=== PATIENT | female | born 1980 | race Caucasian/White ===

== ENCOUNTER 2017-04-09 13:04 | Day surgery (SDC) | payer BC, SELFPAY ==
[2017-04-09 13:47] VITALS: BP 136/91; BP 136/99; PULSE 74; PULSE 77; RESP 18; RESP 20
[2017-04-09 13:55] VITALS: BP 112/57; PULSE 71; RESP 20; TEMP 36.7; O2SAT 98
[2017-04-09 14:30] VITALS: BP 126/80; PULSE 70; RESP 18; TEMP 36.6; O2SAT 99
--- NOTE | 2017-04-09 14:31 | P.PCN_ITS ---
- Procedure Date: 04/09/17 Time: 14:28 Anesthesiologist:: Beck Patel MD Complications:: None Pre-procedure Diagnosis:: Degenerative disc disease of lumbar spine with lumbar spondylosis and facet arthropathy at L3-L4, L4-L5 and L5-S1 bilaterally. Post-procedure Diagnosis:: Same Indications for Procedure:: This patient is a pleasant 37-year-old white female who we are treating for low back pain and bilateral hip pain. Most of her pain is in the low back over the facet joints of L3-L4, L4-L5 and L5-S1. MRI does show degenerative changes throughout the lumbar spine at L3-L4, L4-L5 and L5-S1 with bulging disc. We will do bilateral facet joint injections/medial branch blocks of L3-L4, L4-5 and L5-S1 today. Procedure Details:: Lumbar medial branch block Informed consent was obtained and the risks and benefits of the procedure was explained to the patient. The back was prepped using ChloraPrep. The skin and subcutaneous tissues were anesthetized using lidocaine. I placed 22-gauge spinal needles into the facet joint/medial branches of L3-L4, L4-L5 and L5-S1 bilaterally. Needle placement was confirmed with dye. After this we injected 3 mL bupivacaine 0.25% and Depo-Medrol 13 mg into each facet joint/medial branch of L3-L4, L5 and L5-S1 bilaterally. We used a total of 80 mg Depo- Medrol for all 3 levels bilaterally. The patient tolerated the procedure well with no complications. Plan and Disposition:: We will follow-up with her in 2 weeks. Will reevaluate symptoms at that time.
== END 2017-04-09 14:31 | disposition home or self-care (01) ==
LOC: SC.PAINP 13:06
PROVIDERS: Family Provider Family Medicine; PCP Family Medicine; Visit Provider Anesthesiology
DX: M51.36 Other intervertebral disc degeneration, lumbar region (principal); M54.06 Panniculitis affecting regions of neck and back, lumbar region; M12.88 Other specific arthropathies, not elsewhere classified, other specified site
CPT/HCPCS: 64493; 64494; 64495; J1030; Q9966

== ENCOUNTER → 2017-05-25 10:49 | Outpatient (POV) | payer BC, SELFPAY ==
[2017-05-25 11:07] VITALS: BP 126/81; PULSE 91; RESP 18; TEMP 36.2; O2SAT 100; BMI 31.2
--- NOTE | 2017-05-25 12:06 | HMH.PAINSOAP ---
[facility] Pain Management SOAP Note Subjective:: She is a pleasant 37-year-old female who presents today to discuss her recent facet joint injections. Patient states she did not receive any relief from these injections. Patient states she did get some relief for several days with her lumbar epidural steroid injection. She felt pain-free for up to 3 days. Patient would like to discuss what options she has at this point. Patient is currently on a muscle relaxer from her primary care physician. She is not currently on a anti-inflammatory. Patient has also tried anti-inflammatory patches in the past with no relief. Patient states her pain to 7 out of 10 today mostly in low back and bilateral hips. Patient states that due to pain she is unable to function as well as she would like to. Has tried and failed physical therapy. Patient states the pain is aching and constant. She said that all movement aggravates it. She states nothing truly alleviates it. ROS General: no recent weight change, no fever, no sleep disturbances Respiratory: no cough, no shortness of air, no recurring pulmonary infections Cardiovascular/Peripheral Vascular: No chest pain, No palpitations, no edema, no shortness of breath. Gastrointestinal: no incontinence, normal bowel movements reported Genitourinary: no incontinence Musculoskeletal: Low back pain bilateral hip pain Psychiatric: normal mood/ affect, Neurological: [denies weakness in extremities], [denies balance issues] Objective:: Physical Exam General: Alert and oriented x3, no acute distress, pleasant and cooperative, [on room air] Lungs: Resps E/U, Symmetrical chest expansion, Musculoskeletal: Flexion and extension of lumbar spine somewhat guarded secondary to pain, deep tendon reflexes normal, strength in upper and lower extremities [5/5], [abnormal gait noted], negative Shania's test bilaterally. Positive straight leg raise test at 30? bilaterally. Neurological: speech clear, financial adviser equal, no gross sensory deficits Assessment:: Degenerative disc disease of the lumbar spine with lumbar radiculopathy, lumbar spondylosis, facet arthropathy Plan:: I discussed with the patient that if she had relief from her lumbar epidural steroid injection it may be beneficial for us to repeat this. I also discussed with her that she should try an anti-inflammatory. We will call in diclofenac 75 mg 1 p.o. twice daily. Patient states she has no allergies. Would like to try a 3 series of the lumbar epidural steroid injection to see if we can get some long-term relief for the patient. I believe that this is probably where her pain is coming from since she did get several pain-free days after her first injection. We will seek approval from her insurance for this. Patient has tried and failed physical therapy. This note was dictated using voice recognition software may contain omissions or errors
--- NOTE | 2017-05-25 12:09 | P.CONS_ITS ---
[facility] Pain Management SOAP Note Subjective:: She is a pleasant 37-year-old female who presents today to discuss her recent facet joint injections. Patient states she did not receive any relief from these injections. Patient states she did get some relief for several days with her lumbar epidural steroid injection. She felt pain-free for up to 3 days. Patient would like to discuss what options she has at this point. Patient is currently on a muscle relaxer from her primary care physician. She is not currently on a anti-inflammatory. Patient has also tried anti-inflammatory patches in the past with no relief. Patient states her pain to 7 out of 10 today mostly in low back and bilateral hips. Patient states that due to pain she is unable to function as well as she would like to. Has tried and failed physical therapy. Patient states the pain is aching and constant. She said that all movement aggravates it. She states nothing truly alleviates it. ROS General: no recent weight change, no fever, no sleep disturbances Respiratory: no cough, no shortness of air, no recurring pulmonary infections Cardiovascular/Peripheral Vascular: No chest pain, No palpitations, no edema, no shortness of breath. Gastrointestinal: no incontinence, normal bowel movements reported Genitourinary: no incontinence Musculoskeletal: Low back pain bilateral hip pain Psychiatric: normal mood/ affect, Neurological: [denies weakness in extremities], [denies balance issues] Objective:: Physical Exam General: Alert and oriented x3, no acute distress, pleasant and cooperative, [ on room air] Lungs: Resps E/U, Symmetrical chest expansion, Musculoskeletal: Flexion and extension of lumbar spine somewhat guarded secondary to pain, deep tendon reflexes normal, strength in upper and lower extremities [5/5], [abnormal gait noted], negative Shania's test bilaterally. Positive straight leg raise test at 30? bilaterally. Neurological: speech clear, social science research assistant equal, no gross sensory deficits Assessment:: Degenerative disc disease of the lumbar spine with lumbar radiculopathy, lumbar spondylosis, facet arthropathy Plan:: I discussed with the patient that if she had relief from her lumbar epidural steroid injection it may be beneficial for us to repeat this. I also discussed with her that she should try an anti-inflammatory. We will call in diclofenac 75 mg 1 p.o. twice daily. Patient states she has no allergies. Would like to try a 3 series of the lumbar epidural steroid injection to see if we can get some long-term relief for the patient. I believe that this is probably where her pain is coming from since she did get several pain-free days after her first injection. We will seek approval from her insurance for this. Patient has tried and failed physical therapy. This note was dictated using voice recognition software may contain omissions or errors
--- NOTE | 2017-05-26 09:33 | PC.PHONENOTE ---
05/25/17-called in Rx for Diclofenac 75mg BID with 2 refills to pt pharmacy per provider order
== END ==
PROVIDERS: Family Provider Family Medicine; PCP Family Medicine; Visit Provider Clinical Nurse Specialist Family Health
DX: M54.16 Radiculopathy, lumbar region (principal)
CPT/HCPCS: 99212

== ENCOUNTER 2017-06-11 15:10 | Day surgery (SDC) | payer BC, SELFPAY ==
[2017-06-11 15:26] VITALS: BP 123/81; PULSE 85; TEMP 36.7; O2SAT 98; BMI 31.4
[2017-06-11 15:46] VITALS: BP 146/96; PULSE 91; RESP 18
[2017-06-11 15:47] VITALS: BP 140/78; PULSE 78; RESP 18
--- NOTE | 2017-06-11 15:51 | P.PCN_ITS ---
- Procedure Date: 06/11/17 Time: 15:50 Anesthesiologist:: Beck Patel MD Complications:: None Pre-procedure Diagnosis:: Degenerative disc disease of lumbar spine with lumbar radiculopathy symptoms and lumbar spondylosis Post-procedure Diagnosis:: Same Indications for Procedure:: This patient is a pleasant 37-year-old white female who we are treating for low back pain with lumbar radiculopathy symptoms. She did not get any benefit from previous facet joint injections. She has pain in her low back radiating to both hips. We will do a lumbar epidural steroid injection at L4-L5 today to see if this will give her some benefit. Procedure Details:: Lumbar epidural steroid injection under fluoroscopy Informed consent was obtained and the risk and benefits of the procedure was explained to the patient. The patient was taken to the procedure room. The patient was placed prone on the procedure table. The patient was prepped and draped in sterile fashion. C-arm fluoroscopy was used to view the lumbar spine. Skin and subcutaneous tissues were anesthetized using lidocaine. I placed an 18-gauge epidural needle and advanced into the L4-L5 interspace using fluoroscopic guidance and [id number] to air. After confirmation of needle placement in the epidural space with dye I injected 2 mL of lidocaine 1.5 % with Depo-Medrol 80 mg. Patient tolerated the procedure well with no complications. Plan and Disposition:: We will follow-up with this patient in 2 weeks. We will reevaluate her symptoms at that time.
[2017-06-11 16:04] VITALS: BP 116/89; PULSE 80; O2SAT 98
== END 2017-06-11 16:05 | disposition home or self-care (01) ==
LOC: SC.PAINP 15:10
PROVIDERS: Family Provider Family Medicine; PCP Family Medicine; Visit Provider Anesthesiology
DX: M51.16 Intervertebral disc disorders with radiculopathy, lumbar region (principal); M47.896 Other spondylosis, lumbar region
CPT/HCPCS: 62323; J1040; Q9966

== ENCOUNTER 2017-06-25 13:02 | Day surgery (SDC) | payer BC, SELFPAY ==
[2017-06-25 13:14] VITALS: BP 139/77; PULSE 89; RESP 18; O2SAT 96; BMI 32.9
--- NOTE | 2017-06-25 13:18 | PC.NURSE ---
PATIENT ALERT/ORIENTED DURING ASSESSMENT. NO DISTRESS NOTED, BREATHING UNLABORED AND CALM. PATIENT DOES NOT EXPRESS ANY ADDITIONAL ISSUES DURING ASSESSMENT.
[2017-06-25 14:11] VITALS: BP 153/100; PULSE 84; RESP 18
--- NOTE | 2017-06-25 14:12 | HMH.PMPROC ---
- Procedure Date: 06/25/17 Time: 02:15 Anesthesiologist:: Beck Patel MD Complications:: None Pre-procedure Diagnosis:: Degenerative disc disease of the lumbar spine with lumbar radiculopathy symptoms and lumbar spondylosis Post-procedure Diagnosis:: Same Indications for Procedure:: Patient is a pleasant 37-year-old white female who presents today for her second lumbar epidural steroid injection. Patient did get relief from her first and is doing well. Patient rates her pain a 6 out of 10 today. Patient states she still having relief from her first injection. Patient's radicular pain is improved. Patient and I discussed her second lumbar epidural steroid injection and she wishes to proceed. Procedure Details:: Informed consent was obtained and the risk and benefits of the procedure was explained to the patient. The patient was taken to the procedure room. The patient was placed prone on the procedure table. The patient was prepped and draped in sterile fashion. C-arm fluoroscopy was used to view the lumbar spine. Skin and subcutaneous tissues were anesthetized using lidocaine. I placed an 18-gauge epidural needle and advanced into the L4-L5 interspace using fluoroscopic guidance and [id number] to air. After confirmation of needle placement in the epidural space with dye I injected 2 mL of lidocaine 1.5% with Depo-Medrol 80 mg. Patient tolerated the procedure well with no complications. Plan and Disposition:: Reassess this patient symptoms in 2 or 3 weeks in the clinic. Patient is instructed to call the office if she needs anything in the meantime.
[2017-06-25 14:13] VITALS: BP 127/87; PULSE 76; RESP 18
--- NOTE | 2017-06-25 14:16 | P.PCN_ITS ---
- Procedure Date: 06/25/17 Time: 02:15 Anesthesiologist:: Beck Patel MD Complications:: None Pre-procedure Diagnosis:: Degenerative disc disease of the lumbar spine with lumbar radiculopathy symptoms and lumbar spondylosis Post-procedure Diagnosis:: Same Indications for Procedure:: Patient is a pleasant 37-year-old white female who presents today for her second lumbar epidural steroid injection. Patient did get relief from her first and is doing well. Patient rates her pain a 6 out of 10 today. Patient states she still having relief from her first injection. Patient's radicular pain is improved. Patient and I discussed her second lumbar epidural steroid injection and she wishes to proceed. Procedure Details:: Informed consent was obtained and the risk and benefits of the procedure was explained to the patient. The patient was taken to the procedure room. The patient was placed prone on the procedure table. The patient was prepped and draped in sterile fashion. C-arm fluoroscopy was used to view the lumbar spine. Skin and subcutaneous tissues were anesthetized using lidocaine. I placed an 18-gauge epidural needle and advanced into the L4-L5 interspace using fluoroscopic guidance and [id number] to air. After confirmation of needle placement in the epidural space with dye I injected 2 mL of lidocaine 1.5 % with Depo-Medrol 80 mg. Patient tolerated the procedure well with no complications. Plan and Disposition:: Reassess this patient symptoms in 2 or 3 weeks in the clinic. Patient is instructed to call the office if she needs anything in the meantime.
[2017-06-25 14:25] VITALS: BP 132/91; PULSE 78; O2SAT 100
== END 2017-06-25 14:30 | disposition home or self-care (01) ==
PROVIDERS: Family Provider Family Medicine; PCP Family Medicine; Visit Provider Anesthesiology
DX: M51.16 Intervertebral disc disorders with radiculopathy, lumbar region (principal); M47.896 Other spondylosis, lumbar region
CPT/HCPCS: 62323; J1040; Q9966

== ENCOUNTER → 2017-07-26 15:02 | Outpatient (CLI) | payer BC, SELFPAY ==
[2017-07-26 16:08] LABS: Free T4 (Free Thyroxine) 1.25 ng/dl (0.76-1.46); Thyroid Stimulating Hormone 1.04 uIU/ml (0.358-3.740)
[2017-07-30 12:35] LABS: Thyroid Peroxidase Antibodies 15 IU/mL (0-34)
[2017-07-30 12:48] LABS: Thyroid Stimulating Immunoglob <0.10 IU/L (0.00-0.55)
== END ==
PROVIDERS: PCP Family Medicine; Visit Provider Otolaryngology
DX: E01.0 Iodine-deficiency related diffuse (endemic) goiter (principal)
CPT/HCPCS: 36415; 83520; 84439; 84443; 86376

== ENCOUNTER → 2017-07-27 08:51 | Outpatient (POV) | payer BC, SELFPAY ==
--- NOTE | 2017-07-27 09:13 | HMH.PAINSOAP ---
[facility] Pain Management SOAP Note Subjective:: She is a pleasant 37-year-old white female who presents today after lumbar epidural steroid injection. Patient has medial branch and lumbar epidural steroid injections with little relief. Patient states that after her latest one she was having increased pain and unable to move as well. Patient has tried diclofenac 75 mg 1 p.o. twice daily and failed this. Patient has tried and failed physical therapy. Patient states she has not tried gabapentin in the past. Patient rates her pain a 7 out of 10 today. Most of it in her low back and bilateral legs. ROS General: no recent weight change, no fever, no sleep disturbances Respiratory: no cough, no shortness of air, no recurring pulmonary infections Cardiovascular/Peripheral Vascular: No chest pain, No palpitations, no edema, no shortness of breath. Gastrointestinal: no incontinence, normal bowel movements reported Genitourinary: no incontinence Musculoskeletal: Back pain, bilateral leg pain Psychiatric: normal mood/ affect Neurological: [denies weakness in extremities], [denies balance issues] Objective:: Physical Exam General: Alert and oriented x3, no acute distress, pleasant and cooperative, [on room air] Lungs: Resps E/U, Symmetrical chest expansion, Eyes: PERRL Musculoskeletal: Flexion and extension of lumbar spine somewhat guarded secondary to pain, deep tendon reflexes normal, strength in upper and lower extremities [5/5], [abnormal gait noted] Neurological: speech clear, drive in teller equal, no gross sensory deficits Assessment:: Degenerative disc disease of the lumbar spine with lumbar radiculopathy Plan:: We will start the patient on gabapentin 300 mg 1 tab p.o. 3 times daily. I discussed with the patient potential side effects. I also discussed titrating slowly by taking 300 mg at nighttime for at least a week. Patient that she understands. I want to this medication and we will follow-up with her in 1 month. if she is not having any relief. We will discuss potentially neuro stimulation. Patient is interested in this. This note was dictated using voice recognition software and may contain errors or omissions
[2017-07-27 09:15] VITALS: BP 133/70; PULSE 88; RESP 20; BMI 31.1
--- NOTE | 2017-07-27 09:18 | P.CONS_ITS ---
[facility] Pain Management SOAP Note Subjective:: She is a pleasant 37-year-old white female who presents today after lumbar epidural steroid injection. Patient has medial branch and lumbar epidural steroid injections with little relief. Patient states that after her latest one she was having increased pain and unable to move as well. Patient has tried diclofenac 75 mg 1 p.o. twice daily and failed this. Patient has tried and failed physical therapy. Patient states she has not tried gabapentin in the past. Patient rates her pain a 7 out of 10 today. Most of it in her low back and bilateral legs. ROS General: no recent weight change, no fever, no sleep disturbances Respiratory: no cough, no shortness of air, no recurring pulmonary infections Cardiovascular/Peripheral Vascular: No chest pain, No palpitations, no edema, no shortness of breath. Gastrointestinal: no incontinence, normal bowel movements reported Genitourinary: no incontinence Musculoskeletal: Back pain, bilateral leg pain Psychiatric: normal mood/ affect Neurological: [denies weakness in extremities], [denies balance issues] Objective:: Physical Exam General: Alert and oriented x3, no acute distress, pleasant and cooperative, [ on room air] Lungs: Resps E/U, Symmetrical chest expansion, Eyes: PERRL Musculoskeletal: Flexion and extension of lumbar spine somewhat guarded secondary to pain, deep tendon reflexes normal, strength in upper and lower extremities [5/5], [abnormal gait noted] Neurological: speech clear, self pay specialist equal, no gross sensory deficits Assessment:: Degenerative disc disease of the lumbar spine with lumbar radiculopathy Plan:: We will start the patient on gabapentin 300 mg 1 tab p.o. 3 times daily. I discussed with the patient potential side effects. I also discussed titrating slowly by taking 300 mg at nighttime for at least a week. Patient that she understands. I want to this medication and we will follow-up with her in 1 month. if she is not having any relief. We will discuss potentially neuro stimulation. Patient is interested in this. This note was dictated using voice recognition software and may contain errors or omissions
--- NOTE | 2017-07-27 14:34 | PC.PHONENOTE ---
called in Rx for Gabapentin 300mg TID to pt's pharmacy per provider order
== END ==
PROVIDERS: Family Provider Family Medicine; PCP Family Medicine; Visit Provider Clinical Nurse Specialist Family Health
DX: M51.16 Intervertebral disc disorders with radiculopathy, lumbar region (principal)
CPT/HCPCS: 99212

== ENCOUNTER → 2017-08-02 15:17 | Outpatient (POV) | payer BC, SELFPAY ==
--- NOTE | 2017-08-02 15:25 | P.CONS_ITS ---
[facility] Pain Management SOAP Note Subjective:: Patient is a pleasant 37-year-old white female who we are treating for low back pain with radiation to both hips. She has had a lumbar epidural steroid injection and medial branch blocks with little to no pain relief. He was also placed on gabapentin. She was unable to take it more than a few days because of significant for side effects including dizziness and palpitations. Most of her pain is in her hips. She seems to have a lot of pain over the SI joints. She is tender over both SI joints. She does have a positive Shania's test bilaterally. I do believe she would benefit from bilateral SI joint injections under fluoroscopy. Objective:: Alert and oriented ?3 in no acute distress. Tenderness over both SI joints. Patient does have an antalgic gait. Motor strength of the lower extremities is 5/5. There is no gross sensory deficit. Assessment:: Sacroiliitis Plan:: We will seek approval and plan on bilateral SI joint injections under fluoroscopy. If this does not help we may pursue neuro stimulation as an option.
[2017-08-02 15:38] VITALS: BP 135/84; PULSE 63; RESP 18; TEMP 36.6; O2SAT 98; BMI 32.1
== END ==
PROVIDERS: Family Provider Family Medicine; PCP Family Medicine; Visit Provider Anesthesiology
DX: M46.1 Sacroiliitis, not elsewhere classified (principal)
CPT/HCPCS: 99212

== ENCOUNTER → 2017-08-06 14:14 | Outpatient (CLI) | payer BC, SELFPAY ==
--- NOTE | 2017-08-06 14:24 | US_ITS ---
US thyroid COMPARISON: None HISTORY: Questionable enlarged thyroid gland seen on previous CT scan TECHNIQUE: Targeted ultrasound the thyroid FINDINGS: The isthmus of the gland is slightly enlarged measuring 0.4 cm. The right lobe measures 1.5 x 1.7 x 4.2 cm. The left lobe measures 1.7 x 2.1 x 4.4 cm. Both lobes show homogeneous echogenicity. However there is a small oval cystic lesion lower pole right lobe measuring 0.8 x 0.5 cm. IMPRESSION: Mild or borderline thyromegaly with probable small benign-appearing cyst lower pole right lobe
== END ==
PROVIDERS: Family Provider Family Medicine; PCP Family Medicine; Visit Provider Otolaryngology
DX: E01.0 Iodine-deficiency related diffuse (endemic) goiter (principal)
CPT/HCPCS: 76536

== ENCOUNTER → 2017-08-23 08:42 | Outpatient (POV) | payer BC, SELFPAY ==
[2017-08-23 09:05] VITALS: BP 127/73; PULSE 78; RESP 18; O2SAT 99; BMI 31.6
--- NOTE | 2017-08-23 09:39 | HMH.PAINSOAP ---
[facility] Pain Management SOAP Note Subjective:: Patient is a pleasant 37-year-old white female who presents today for follow-up after recent insurance denial of her SI joint injections. Patient is still having her SI joint pain. Patient has extreme point tenderness over bilateral SI joints. She does have pain when she twists or bends. Patient rates pain as 7 out of 10 today. Patient's tried and failed heat, ice, physical therapy, anti-inflammatories, medications. Patient is done well with injections in the past. I believe that this would be beneficial. Patient is unable to take gabapentin due to side effects. ROS General: no recent weight change, no fever, no sleep disturbances Respiratory: no cough, no shortness of air, no recurring pulmonary infections Cardiovascular/Peripheral Vascular: No chest pain, No palpitations, no edema, no shortness of breath. Gastrointestinal: no incontinence, normal bowel movements reported Genitourinary: no incontinence Musculoskeletal: Bilateral SI joint pain Psychiatric: normal mood/ affect, Neurological: [denies weakness in extremities], [denies balance issues] Objective:: Physical Exam General: Alert and oriented x3, no acute distress, pleasant and cooperative, [on room air] Lungs: Resps E/U, Symmetrical chest expansion, Eyes: PERRL Musculoskeletal: Flexion and extension of lumbar spine somewhat guarded secondary to pain, deep tendon reflexes normal, strength in upper and lower extremities [5/5], slightly antalgic gait noted, positive Shania's test bilaterally, extreme point tenderness over bilateral SI joint Neurological: speech clear, 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 I believe that this would be beneficial given her symptomology. Patient and I did discuss potentially neuro stimulation however I believe that this is premature prior to trying bilateral SI joint injections. Patient is not on any anticoagulation therapy, patient has tried and failed physical therapy, medications, anti-inflammatories. Patient is done well with patients the past. I will follow-up with this patient after her injections. This note was dictated using voice recognition software and may contain errors or omissions
--- NOTE | 2017-08-23 09:43 | P.CONS_ITS ---
[facility] Pain Management SOAP Note Subjective:: Patient is a pleasant 37-year-old white female who presents today for follow-up after recent insurance denial of her SI joint injections. Patient is still having her SI joint pain. Patient has extreme point tenderness over bilateral SI joints. She does have pain when she twists or bends. Patient rates pain as 7 out of 10 today. Patient's tried and failed heat, ice, physical therapy, anti -inflammatories, medications. Patient is done well with injections in the past. I believe that this would be beneficial. Patient is unable to take gabapentin due to side effects. ROS General: no recent weight change, no fever, no sleep disturbances Respiratory: no cough, no shortness of air, no recurring pulmonary infections Cardiovascular/Peripheral Vascular: No chest pain, No palpitations, no edema, no shortness of breath. Gastrointestinal: no incontinence, normal bowel movements reported Genitourinary: no incontinence Musculoskeletal: Bilateral SI joint pain Psychiatric: normal mood/ affect, Neurological: [denies weakness in extremities], [denies balance issues] Objective:: Physical Exam General: Alert and oriented x3, no acute distress, pleasant and cooperative, [ on room air] Lungs: Resps E/U, Symmetrical chest expansion, Eyes: PERRL Musculoskeletal: Flexion and extension of lumbar spine somewhat guarded secondary to pain, deep tendon reflexes normal, strength in upper and lower extremities [5/5], slightly antalgic gait noted, positive Shania's test bilaterally, extreme point tenderness over bilateral SI joint Neurological: speech clear, disability specialist equal, no gross sensory deficits Assessment:: Sacroiliitis Plan:: We will schedule bilateral SI joint injections for the patient. I believe that this would be beneficial given her symptomology. Patient and I did discuss potentially neuro stimulation however I believe that this is premature prior to trying bilateral SI joint injections. Patient is not on any anticoagulation therapy, patient has tried and failed physical therapy, medications, anti- inflammatories. Patient is done well with patients the past. I will follow-up with this patient after her injections. This note was dictated using voice recognition software and may contain errors or omissions
== END ==
PROVIDERS: Family Provider Family Medicine; PCP Family Medicine; Visit Provider Clinical Nurse Specialist Family Health
DX: M46.1 Sacroiliitis, not elsewhere classified (principal)
CPT/HCPCS: 99212

== ENCOUNTER → 2017-09-28 10:00 | Outpatient (POV) | payer BC, SELFPAY ==
[2017-09-28 10:16] VITALS: BP 128/79; PULSE 74; RESP 20; O2SAT 98; BMI 29.2
--- NOTE | 2017-09-28 10:32 | HMH.PAINSOAP ---
[facility] Pain Management SOAP Note Subjective:: Patient is a pleasant 37-year-old white female who presents today for follow-up after bilateral SI joint injections. Patient states that her pain in her hips has been relieved. She rates that pain a 1 out of 10 today. However her back pain has returned. Patient has tried and failed heat, ice, physical therapy, anti-inflammatories and medications. Patient has had epidural injections and medial branch blocks with some relief however none lasting. Patient is unable to take gabapentin due to side effects. Patient and I discussed possible neuro stimulation. ROS General: no recent weight change, no fever, no sleep disturbances Respiratory: no cough, no shortness of air, no recurring pulmonary infections Cardiovascular/Peripheral Vascular: No chest pain, No palpitations, no edema, no shortness of breath. Gastrointestinal: no incontinence, normal bowel movements reported Genitourinary: no incontinence Musculoskeletal: Back pain Psychiatric: normal mood/ affect Neurological: [denies weakness in extremities], [denies balance issues] Objective:: Physical Exam General: Alert and oriented x3, no acute distress, pleasant and cooperative, [on room air] Lungs: Resps E/U, Symmetrical chest expansion, Eyes: PERRL Musculoskeletal: Flexion and extension of lumbar spine somewhat guarded secondary to pain, deep tendon reflexes normal, strength in upper and lower extremities [5/5], [abnormal gait noted] Neurological: speech clear, loading manager equal, no gross sensory deficits Assessment:: Degenerative disc disease lumbar spine, facet arthropathy, sacroiliitis Plan:: I gave the patient information on the [employer] system and answered her questions. Patient is going to review the information and contact our office if she would like to move forward with a potential trial. If not patient may be open to more injective therapy. This note was dictated using voice recognition software and may contain errors or omissions
--- NOTE | 2017-09-28 10:36 | P.CONS_ITS ---
[facility] Pain Management SOAP Note Subjective:: Patient is a pleasant 37-year-old white female who presents today for follow-up after bilateral SI joint injections. Patient states that her pain in her hips has been relieved. She rates that pain a 1 out of 10 today. However her back pain has returned. Patient has tried and failed heat, ice, physical therapy, anti-inflammatories and medications. Patient has had epidural injections and medial branch blocks with some relief however none lasting. Patient is unable to take gabapentin due to side effects. Patient and I discussed possible neuro stimulation. ROS General: no recent weight change, no fever, no sleep disturbances Respiratory: no cough, no shortness of air, no recurring pulmonary infections Cardiovascular/Peripheral Vascular: No chest pain, No palpitations, no edema, no shortness of breath. Gastrointestinal: no incontinence, normal bowel movements reported Genitourinary: no incontinence Musculoskeletal: Back pain Psychiatric: normal mood/ affect Neurological: [denies weakness in extremities], [denies balance issues] Objective:: Physical Exam General: Alert and oriented x3, no acute distress, pleasant and cooperative, [ on room air] Lungs: Resps E/U, Symmetrical chest expansion, Eyes: PERRL Musculoskeletal: Flexion and extension of lumbar spine somewhat guarded secondary to pain, deep tendon reflexes normal, strength in upper and lower extremities [5/5], [abnormal gait noted] Neurological: speech clear, icu registered nurse equal, no gross sensory deficits Assessment:: Degenerative disc disease lumbar spine, facet arthropathy, sacroiliitis Plan:: I gave the patient information on the [employer] system and answered her questions. Patient is going to review the information and contact our office if she would like to move forward with a potential trial. If not patient may be open to more injective therapy. This note was dictated using voice recognition software and may contain errors or omissions
== END ==
PROVIDERS: Family Provider Family Medicine; PCP Family Medicine; Visit Provider Clinical Nurse Specialist Family Health
DX: M46.1 Sacroiliitis, not elsewhere classified (principal)
CPT/HCPCS: 99212

== ENCOUNTER → 2017-10-05 08:31 | Outpatient (POV) | payer BC, SELFPAY ==
[2017-10-05 08:56] VITALS: BP 149/85; PULSE 74; RESP 18; O2SAT 98; BMI 30.9
--- NOTE | 2017-10-05 14:18 | HMH.PAINSOAP ---
[facility] Pain Management SOAP Note Subjective:: Patient is a pleasant 37-year-old white female who presents today for follow-up. Patient is in the process of getting approved for a neurostimulator. Patient states she has low back pain along with bilateral leg pain. She rates her pain a 5 out of 10 today. Patient did have some questions in regards to the spinal cord stimulator I did answer her questions for her. Patient does have a psychological evaluation scheduled for later on today. Patient's tried and failed heat, ice, physical therapy, anti-inflammatories, medications, injections. She has had epidural injections along with medial branch blocks with some relief however none lasting. Patient is unable to take gabapentin due to side effects. ROS General: no recent weight change, no fever, no sleep disturbances Respiratory: no cough, no shortness of air, no recurring pulmonary infections Cardiovascular/Peripheral Vascular: No chest pain, No palpitations, no edema, no shortness of breath. Gastrointestinal: no incontinence, normal bowel movements reported Genitourinary: no incontinence Musculoskeletal: Back pain, leg pain Psychiatric: normal mood/ affect Neurological: [denies weakness in extremities], [denies balance issues] Objective:: Physical Exam General: Alert and oriented x3, no acute distress, pleasant and cooperative, [on room air] Lungs: Resps E/U, Symmetrical chest expansion, Eyes: PERRL Musculoskeletal: Flexion and extension of lumbar spine somewhat guarded secondary to pain, deep tendon reflexes normal, strength in upper and lower extremities [5/5], [abnormal gait noted] positive straight leg raise test bilaterally at 30? Neurological: speech clear, triple air valve tester equal, no gross sensory deficits Assessment:: Degenerative disc disease of the lumbar spine with facet arthropathy, lumbar radiculopathy, sacroiliitis Plan:: Patient is going to have her psychological evaluation today. We will move forward with a spinal cord stimulator trial to see if she gets benefit from this. Patient states she has burning and numbness in her low back and down her legs. This note was dictated using voice recognition software and may contain errors or omissions
--- NOTE | 2017-10-05 14:21 | P.CONS_ITS ---
[facility] Pain Management SOAP Note Subjective:: Patient is a pleasant 37-year-old white female who presents today for follow- up. Patient is in the process of getting approved for a neurostimulator. Patient states she has low back pain along with bilateral leg pain. She rates her pain a 5 out of 10 today. Patient did have some questions in regards to the spinal cord stimulator I did answer her questions for her. Patient does have a psychological evaluation scheduled for later on today. Patient's tried and failed heat, ice, physical therapy, anti-inflammatories, medications, injections. She has had epidural injections along with medial branch blocks with some relief however none lasting. Patient is unable to take gabapentin due to side effects. ROS General: no recent weight change, no fever, no sleep disturbances Respiratory: no cough, no shortness of air, no recurring pulmonary infections Cardiovascular/Peripheral Vascular: No chest pain, No palpitations, no edema, no shortness of breath. Gastrointestinal: no incontinence, normal bowel movements reported Genitourinary: no incontinence Musculoskeletal: Back pain, leg pain Psychiatric: normal mood/ affect Neurological: [denies weakness in extremities], [denies balance issues] Objective:: Physical Exam General: Alert and oriented x3, no acute distress, pleasant and cooperative, [ on room air] Lungs: Resps E/U, Symmetrical chest expansion, Eyes: PERRL Musculoskeletal: Flexion and extension of lumbar spine somewhat guarded secondary to pain, deep tendon reflexes normal, strength in upper and lower extremities [5/5], [abnormal gait noted] positive straight leg raise test bilaterally at 30? Neurological: speech clear, heel emery buffer equal, no gross sensory deficits Assessment:: Degenerative disc disease of the lumbar spine with facet arthropathy, lumbar radiculopathy, sacroiliitis Plan:: Patient is going to have her psychological evaluation today. We will move forward with a spinal cord stimulator trial to see if she gets benefit from this. Patient states she has burning and numbness in her low back and down her legs. This note was dictated using voice recognition software and may contain errors or omissions
== END ==
PROVIDERS: Family Provider Family Medicine; PCP Family Medicine; Visit Provider Clinical Nurse Specialist Family Health
DX: M54.16 Radiculopathy, lumbar region (principal)
CPT/HCPCS: 99212

== ENCOUNTER → 2017-10-20 11:22 | Outpatient (POV) | payer BC, SELFPAY ==
[2017-10-20 11:37] VITALS: BP 107/81; PULSE 87; RESP 18; O2SAT 98; BMI 31.6
--- NOTE | 2017-10-20 12:22 | HMH.PMCON ---
Assessment and Plan (1) DDD (degenerative disc disease), lumbar Current visit: Yes Status: Chronic Category: Medical Code(s): M51.36 - Other intervertebral disc degeneration, lumbar region Consideration for neurostimulator implant trial with placement of permanent system if indicated HPI - Data of Consult Patient: new to practice Consult date: 10/20/17 Requesting Physician: Junior Ro MD Primary Care Provider: Brian Richard MD Family Provider: Brian Richard MD - Consult Narrative Reason for consult: Consideration for neurostimulator implant trial when of lumbar pain History of present illness: Ms. Stone is a 37 year old female with long history of degenerative disc disease of the lumbar spine with radiculopathy. Failure of improvement with injections, physical therapy, anti-inflammatories etc. She desires evaluation with neuro stimulation CC: Junior Ro MD [facility] History Medical History: Denies:: Cancer, Diabetes Mellitus Type 1, Diabetes Mellitus Type 2, MRSA, Seizures Other Medical History: Reports: Arthritis, Sinus Problems. Denies: Blood Transfusion Reaction Comment: Illnesses-GERD, COPD, chronic back pain Laterality Cases: Right: Arthroscopy Shoulder, Bilateral: Tonsillectomy Other Surgeries: Yes: Tubal Ligation, Other Amputation: No Fractures: No Comment: Operations-tubal ligation, right shoulder surgery, right hand surgery - *Social History Smoking Status: Current every day smoker Tobacco Type: cigarettes # Packs/Day (cigarettes): 1 Alcohol Intake: never Substance Use Type: denies use Occupational Status: unemployed, disabled Housing: house Household Members: spouse - Psychiatric History Expresses thoughts of harming self/others: None Suicide Plan Description: No Plan *Family Hx:: Heart Attack, Hypertension Review of Systems - Review of Systems Review of systems:: pertinent systems reviewed and negative unless documented below - *Musculoskeletal Reports back pain, Reports radiating pain into limb - *Neurologic Reports numbness Meds Home Medications Medication Instructions Recorded Confirmed Type No Known Home Medications 07/26/17 07/26/17 History Allergies Allergy/AdvReac Type Severity Reaction Status Date / Time No Known Allergies Allergy Verified 08/12/17 13:38 Objective Vital signs: Pulse Resp BP Pulse Ox 87 18 107/81 98 10/20/17 11:37 10/20/17 11:37 10/20/17 11:37 10/20/17 11:37 Comments: Pale white female in no distress - *Routine Respiratory Exam Comments: Clear - *Routine Cardiovascular Exam Present: RRR - *Routine Abdominal Exam Present: soft
== END ==
PROVIDERS: Family Provider Family Medicine; PCP Family Medicine; Visit Provider Surgery
DX: M51.36 Other intervertebral disc degeneration, lumbar region (principal)
CPT/HCPCS: 99212

== ENCOUNTER → 2017-12-13 13:47 | Outpatient (CLI) | payer BC, SELFPAY ==
--- NOTE | 2017-12-13 13:49 | CA_ITS ---
PROCEDURE: 2-D M-mode and color Doppler study INDICATIONS FOR THE TEST: Chest pain+ COPD Heart Murmur Tobacco Smoking+ Palpitations+ Fatigue+ Syncope Edema Hypertension+Diabetes Mellitus Rheumatic Fever SOB [place]+Obesity Hyperlipidemia Family History HD+ Additional History PATIENT INFORMATION HEIGHT: 64 WEIGHT: 184 GENDER: Female B/P: 115/57 2-D/M-MODE INTERPRETATION: 2-D MEASUREMENTS OBSERVED VALUES IN CMS Right Ventricular Dimension (RVDd) 1.6 Interventricular Septum (Thickness)(IVsd) 0.7 Left Ventricular Internal Dimensions(LVIDd) 4.9 Left Ventricular Posterior Wall (Thickness)(LVPWd) 0.7 Aortic Root 2.5 Aortic Cusp Separation 2.0 Left Atrial Dimensions (LAD) 3.0 2D 1. Left atrium is normal size, left ventricle is normal size, there is no concentric left ventricular hypertrophy, visually estimated ejection fraction 55% with no obvious regional wall motion abnormality. 2. The right atrium and right ventricle are normal size and contractility. 3. The aortic valve is minimally thickened and fibrosed. 4. The mitral and tricuspid valvular grossly normal. 5. The pulmonic valve is poorly visualized. 6. No significant pericardial effusion noted. DOPPLER INTERROGATION: Doppler interrogation of the aortic, mitral and tricuspid valvular presence of mild mitral and tricuspid regurgitation, tricuspid regurgitation jet velocity is insufficient for calculation of the right ventricular systolic pressure, grade 1 diastolic dysfunction seen with tissue Doppler evidence of raised left atrial pressure. CONCLUSION: 1. Normal left ventricular size, preserved left ventricular systolic function, visually estimated ejection fraction 55% with no regional wall motion abnormality, grade 1 diastolic dysfunction seen with tissue Doppler evidence of raised left atrial pressure. 2. Mild mitral and tricuspid regurgitation 3. No significant pericardial effusion noted.
== END ==
PROVIDERS: Family Provider Family Medicine; PCP Family Medicine; Visit Provider Internal Medicine
DX: Z01.818 Encounter for other preprocedural examination (principal); I10 Essential (primary) hypertension; R00.2 Palpitations; R06.02 Shortness of breath; R07.89 Other chest pain; Z72.0 Tobacco use
CPT/HCPCS: 93017; 93306

== ENCOUNTER → 2017-12-21 10:55 | Outpatient (POV) | payer BC, SELFPAY ==
[2017-12-21 11:03] VITALS: BP 110/65; PULSE 79; RESP 18; TEMP 36.2; O2SAT 96; BMI 31.2
--- NOTE | 2017-12-21 11:50 | HMH.PAINSOAP ---
[facility] Pain Management SOAP Note Subjective:: Patient is a pleasant 37-year-old white female who presents today for follow-up in regards to her neurostimulator placement. Patient is currently doing well rating her pain a 5 out of 10. Patient's been reprogrammed in stating she is doing much better. Patient states that she is Ext percent better. Patient is interested in moving toward the permanent implant. Patient states she is much more functional. Objective:: Physical Exam General: Alert and oriented x3, no acute distress, pleasant and cooperative, [on room air] Lungs: Resps E/U, Symmetrical chest expansion, Eyes: PERRL Musculoskeletal: Flexion and extension of lumbar spine somewhat guarded secondary to pain, deep tendon reflexes normal, strength in upper and lower extremities [5/5], slightly antalgic gait noted Neurological: speech clear, washer machine equal, no gross sensory deficits Assessment:: Sacroiliitis Plan:: We will plan on removing her neurostimulator leads after several more days. Patient's been reprogrammed and doing well at this time. Patient is continuing on her antibiotics. Patient sites are dry and clean no drainage noted. We will plan on a permanent in plant given the efficacy of the trial. Patient states she is much more functional. This note was dictated using voice recognition software and may contain errors or omissions
--- NOTE | 2017-12-21 11:53 | P.CONS_ITS ---
[facility] Pain Management SOAP Note Subjective:: Patient is a pleasant 37-year-old white female who presents today for follow-up in regards to her neurostimulator placement. Patient is currently doing well rating her pain a 5 out of 10. Patient's been reprogrammed in stating she is doing much better. Patient states that she is Ext percent better. Patient is interested in moving toward the permanent implant. Patient states she is much more functional. Objective:: Physical Exam General: Alert and oriented x3, no acute distress, pleasant and cooperative, [on room air] Lungs: Resps E/U, Symmetrical chest expansion, Eyes: PERRL Musculoskeletal: Flexion and extension of lumbar spine somewhat guarded secondar y to pain, deep tendon reflexes normal, strength in upper and lower extremities [5/5], slightly antalgic gait noted Neurological: speech clear, fish skinning machine feeder equal, no gross sensory deficits Assessment:: Sacroiliitis Plan:: We will plan on removing her neurostimulator leads after several more days. Patient's been reprogrammed and doing well at this time. Patient is continuing on her antibiotics. Patient sites are dry and clean no drainage noted. We will plan on a permanent in plant given the efficacy of the trial. Patient states she is much more functional. This note was dictated using voice recognition software and may contain errors or omissions
== END ==
PROVIDERS: Family Provider Family Medicine; PCP Family Medicine; Visit Provider Clinical Nurse Specialist Family Health
DX: M46.1 Sacroiliitis, not elsewhere classified (principal)
CPT/HCPCS: 99212

== ENCOUNTER → 2018-02-16 13:00 | Outpatient (POV) | payer BC, SELFPAY ==
[2018-02-16 13:14] VITALS: BP 105/69; PULSE 61; RESP 18; O2SAT 96; BMI 30.9
--- NOTE | 2018-02-16 13:25 | HMH.PAINSOAP ---
[facility] Pain Management SOAP Note Subjective:: This patient is a pleasant 38-year-old white female who is status post permanent placement spinal cord stimulator for low back pain with lumbar radicular symptoms. She is doing very well with her stimulator. Pain score is down to 4-5 out of 10. She does have increased stimulation down her legs and she needs more in her back. She is scheduled reprogramming today. Incision is healed very nicely. Sutures have been removed today and Steri-Strips placed. Overall she is much more functional with less pain. Objective:: Oriented x3 no acute distress. Patient does have an antalgic gait. Motor strength of the lower extremities is 5/5. There is no gross sensory deficit. Incision is healed very nicely. Assessment:: Degenerative disc disease of lumbar spine with lumbar radiculopathy symptoms with spinal cord stimulator in place Plan:: Very pleased with her progress. We will reprogram her today. We will follow-up with her in 1 month. We will reevaluate her symptoms and further reprogramming if needed.
== END ==
PROVIDERS: PCP Family Medicine; Visit Provider Anesthesiology
DX: M51.16 Intervertebral disc disorders with radiculopathy, lumbar region (principal)
CPT/HCPCS: 99212

== ENCOUNTER → 2018-02-17 12:25 | Outpatient (CLI) | payer BC, SELFPAY ==
--- NOTE | 2018-02-17 12:26 | US_ITS ---
US thyroid HISTORY: Follow-up enlarged thyroid ITS.REASON: enlarged thyroid per CT ORDERING PHYSICIAN: Miguel Qiu MD PATIENT AGE: 38 years Comparison: 08/06/2017 FINDINGS: The right lobe is 4.6 x 1.6 x 2.3 cm. 9 x 6 mm cyst along the upper pole posteriorly unchanged. Ill-defined Isoechoic area posteriorly at 8 x 4 mm. This was not demonstrated previously but may not been seen and now represent an area of heterogeneous echogenicity as opposed to a nodule. Left lobe: 4 x 1.9 x 1.8 cm with unremarkable appearance. The isthmus is unremarkable at 3 mm. IMPRESSION: 1. Mildly enlarged thyroid gland. 2. No change in the 9 mm cyst of the right lobe with possible isoechoic nodule in the lower pole versus heterogeneous echogenicity. Continued follow-up suggested
[2018-02-17 15:33] LABS: Free T4 (Free Thyroxine) 1.32 ng/dl (0.76-1.46); Thyroid Stimulating Hormone 0.65 uIU/ml (0.358-3.740)
== END ==
PROVIDERS: PCP Family Medicine; Visit Provider Otolaryngology
DX: E01.0 Iodine-deficiency related diffuse (endemic) goiter (principal)
CPT/HCPCS: 36415; 76536; 84439; 84443

== ENCOUNTER → 2018-02-17 13:33 | Outpatient (CLI) | payer BC, SELFPAY | PROVIDERS: Visit Provider Otolaryngology | DX: E01.0 Iodine-deficiency related diffuse (endemic) goiter (principal) | CPT/HCPCS: 36415; 84439; 84443 ==

== ENCOUNTER → 2018-03-15 09:39 | Outpatient (POV) | payer BC, SELFPAY ==
--- NOTE | 2018-03-15 10:12 | HMH.PAINSOAP ---
[facility] Pain Management SOAP Note Subjective:: Patient is a pleasant 38-year-old white female who presents today for follow-up after spinal cord stimulator placement. Patient is doing well rating her pain a 5 out of 10 today. Patient states that she does have some tweaking that needs to be done due to the neurostimulator when it is turned high she has numbness in her legs. ROS General: no recent weight change, no fever, no sleep disturbances Respiratory: no cough, no shortness of air, no recurring pulmonary infections Cardiovascular/Peripheral Vascular: No chest pain, No palpitations, no edema, no shortness of breath. Gastrointestinal: no incontinence, normal bowel movements reported Genitourinary: no incontinence Musculoskeletal: Back pain, leg pain Psychiatric: normal mood/ affect Neurological: [denies weakness in extremities], [denies balance issues] Objective:: Physical Exam General: Alert and oriented x3, no acute distress, pleasant and cooperative, [on room air] Lungs: Resps E/U, Symmetrical chest expansion, Eyes: PERRL Musculoskeletal: Flexion and extension of lumbar spine somewhat guarded secondary to pain, deep tendon reflexes normal, strength in upper and lower extremities [5/5], slightly antalgic gait noted Neurological: speech clear, vending machine operator equal, no gross sensory deficits Assessment:: Degenerative disc disease lumbar spine lumbar radiculopathy Plan:: We will see the patient back in 3 months and reassess her symptoms at that time. Patient's been instructed to call the office if she has any issues. Patient will be contacted by the [facility] for [facility] for any tweaking. This note was dictated using voice recognition software and may contain errors or omissions
[2018-03-15 10:29] VITALS: BP 132/76; PULSE 88; RESP 18; O2SAT 98; BMI 31.2
== END ==
PROVIDERS: PCP Family Medicine; Visit Provider Clinical Nurse Specialist Family Health
DX: M51.16 Intervertebral disc disorders with radiculopathy, lumbar region (principal); Z96.89 Presence of other specified functional implants
CPT/HCPCS: 99213

== ENCOUNTER → 2018-05-23 13:47 | Outpatient (POV) | payer BC, SELFPAY ==
[2018-05-23 15:04] VITALS: BP 119/84; PULSE 83; RESP 18; O2SAT 98; BMI 31.2
--- NOTE | 2018-05-24 08:40 | P.CONS_ITS ---
[facility] Pain Management SOAP Note Subjective:: Patient is a pleasant 38-year-old white female who presents today for follow-up. She rates her pain a 6 out of 10 today. She states her stimulator is helping her low back pain however she is having some hip pain. Patient probably needs some reprogramming. Patient has been in touch with the outside sales representative. Patient also wanted to discuss arthritis pain. She is not currently on any anti- inflammatories. ROS General: no recent weight change, no fever, no sleep disturbances Respiratory: no cough, no shortness of air, no recurring pulmonary infections Cardiovascular/Peripheral Vascular: No chest pain, No palpitations, no edema, no shortness of breath. Gastrointestinal: no incontinence, normal bowel movements reported Genitourinary: no incontinence Musculoskeletal: Back pain, leg pain Psychiatric: normal mood/ affect, Neurological: [denies weakness in extremities], [denies balance issues] Objective:: Physical Exam General: Alert and oriented x3, no acute distress, pleasant and cooperative, [on room air] Lungs: Resps E/U, Symmetrical chest expansion, Eyes: PERRL Musculoskeletal: Flexion and extension of lumbar spine somewhat guarded secondary to pain, deep tendon reflexes normal, strength in upper and lower extremities [5/5], slightly antalgic gait noted Neurological: speech clear, animal trainer supervisor equal, no gross sensory deficits Assessment:: Degenerative disc disease lumbar spine with lumbar radiculopathy Plan:: We will call the patient in Celebrex 200 mg 1 p.o. daily I will follow-up with the patient in 2 months and reassess her symptoms at that time. She is been instructed to call the office if she has any issues prior to her next appointment. Dr. Patel has reviewed this note and agrees with this plan of care. This note was dictated using voice recognition software and may contain errors or omissions
== END ==
PROVIDERS: PCP Family Medicine; Visit Provider Clinical Nurse Specialist Family Health
DX: M51.16 Intervertebral disc disorders with radiculopathy, lumbar region (principal)
CPT/HCPCS: 99213

== ENCOUNTER → 2018-06-21 10:11 | Outpatient (POV) | payer BC, MEDICAID, SELFPAY ==
[2018-06-21 10:29] VITALS: BP 132/84; PULSE 67; RESP 18; O2SAT 98; BMI 31.7
--- NOTE | 2018-06-21 16:30 | P.CONS_ITS ---
[facility] Pain Management SOAP Note Subjective:: Patient is a pleasant 38-year-old white female who presents today for follow-up. She rates her pain a 5 out of 10. She states that most of her pain is in her right hip. She is being reprogrammed today by the community service representative. Patient was on Celebrex however she felt like it was not beneficial. ROS General: no recent weight change, no fever, no sleep disturbances Respiratory: no cough, no shortness of air, no recurring pulmonary infections Cardiovascular/Peripheral Vascular: No chest pain, No palpitations, no edema, no shortness of breath. Gastrointestinal: no incontinence, normal bowel movements reported Genitourinary: no incontinence Musculoskeletal: Back pain, leg pain at times, right hip pain Psychiatric: normal mood/ affect Neurological: [denies weakness in extremities], [denies balance issues] Objective:: Physical Exam General: Alert and oriented x3, no acute distress, pleasant and cooperative, [on room air] Lungs: Resps E/U, Symmetrical chest expansion, Eyes: PERRL Musculoskeletal: Flexion and extension of lumbar spine somewhat guarded secondary to pain, deep tendon reflexes normal, strength in upper and lower extremities [5/5], antalgic gait noted Neurological: speech clear, lidar technician equal, no gross sensory deficits Assessment:: Generative disc disease lumbar spine with lumbar radiculopathy Plan:: Patient will be reprogrammed today we will follow-up with her later and see if this is beneficial. If it is not we may need to get some new imaging of her hip and potentially send her to [facility]. Patient's been instructed to call the office if she has any issues prior to her next appointment. Dr. Patel has reviewed this note and agrees with this plan of care. This note was dictated using voice recognition software and may contain errors or omissions
== END ==
PROVIDERS: PCP Family Medicine; Visit Provider Clinical Nurse Specialist Family Health
DX: M51.16 Intervertebral disc disorders with radiculopathy, lumbar region (principal)
CPT/HCPCS: 99213

== ENCOUNTER → 2018-06-28 09:26 | Outpatient (CLI) | payer BC, MEDICAID, SELFPAY ==
[2018-06-28 10:05] LABS: Basophils % 0.7 % (0.1-2.0); Eosinophils # 0.3 K/mm3 (0.0-0.4); Eosinophils % 4.2 % (0.1-12.0); Hematocrit 44.9 % (37.0-47.0); Hemoglobin 15.3 g/dL (12.2-16.2); Lymphocytes # 1.8 K/mm3 (0.7-4.5); Lymphocytes % 27.2 % (10-50); Mean Corpuscular Hemoglobin 32.3 pg (27.0-31.2); Mean Corpuscular Volume 95.2 fl (81-99); Mean Platelet Volume 9.3 fl (7.4-10.4); Monocytes # 0.3 K/mm3 (0.1-1.0); Monocytes % 4.8 % (1.7-9.3); Neutrophils # 4.1 K/mm3 (1.8-7.8); Neutrophils % 63.2 % (37.0-80.0); Platelet Count 168 K/mm3 (142-424); Red Blood Count 4.72 M/mm3 (4.20-5.40); Red Cell Distribution Width 12.9 % (11.5-17.5); White Blood Count 6.5 K/mm3 (4.8-10.8)
[2018-06-28 10:59] LABS: Alanine Aminotransferase 19 U/L (12-78); Albumin Level 3.7 gm/dL (3.4-5.0); Albumin/Globulin Ratio 1.1 (1.1-1.8); Alkaline Phosphatase 57 U/L (46-116); Anion Gap 12.9 mEq/L (5-15); Aspartate Amino Transferase 13 U/L (15-37); Bilirubin,Total 0.4 mg/dL (0.2-1.0); Blood Urea Nitrogen 9 mg/dL (7-18); Calcium 8.8 mg/dL (8.5-10.1); Carbon Dioxide 26 mmol/L (21.0-32.0); Chloride 105 mmol/L (98-107); Chol/HDL Ratio 7.7 (1-3.5); Cholesterol 292 mg/dL (140-200); Creatinine,Serum 0.79 mg/dL (0.55-1.02); Estimated Glomerular Filt Rate 81 ml/min (>60); GFR (African American) 98 ML/MIN (>60); Globulin 3.3 gm/dl (1.3-3.2); Glucose 88 mg/dL (74-106); HDL Cholesterol 38 mg/dL (29-89); LDL Cholesterol 220 mg/dL (0-130); Potassium 3.9 mmoL/L (3.5-5.1); Sodium 140 mmol/L (136-145); Triglycerides 168 mg/dL (30-200); VLDL Cholesterol 34 mg/dL (0-40)
[2018-06-29 08:44] LABS: Vitamin D 25 Hydroxy 13.9 ng/mL (30.0-100.0)
== END ==
PROVIDERS: Visit Provider Nurse Practitioner Obstetrics & Gynecology
DX: Z01.419 Encounter for gynecological examination (general) (routine) without abnormal findings (principal)
CPT/HCPCS: 36415; 80053; 80061; 82652; 85025

== ENCOUNTER → 2018-06-30 12:27 | Outpatient (CLI) | payer BC, MEDICAID, SELFPAY ==
--- NOTE | 2018-06-30 12:29 | CT_ITS ---
CT lumbar spine wo con INDICATION: ITS.REASON: LOW BACK PAIN ORDERING PHYSICIAN: Lachelle Rogers PATIENT AGE: 38 years COMPARISON: 04/23/2016 TECHNIQUE: Axial images obtained with sagittal and coronal reformats. All CT scans at the facility use one or more dose reduction, viz: automated exposure control, ma/kV adjustment per patient size (including targeted exams where dose is matched to indication, i.e. head), or iterative reconstruction technique. FINDINGS: There has been interval insertion of epidural device with one limb entering the spinal canal at T11-T12 and another limb entering the canal at T12-L1 There is normal alignment. L2-L3: Unremarkable. L3-L4: There is concentric bulging disc at L3-L4 along with mild facet and ligamentum flavum hypertrophy not significantly changed. L4-L5: Mild concentric bulging disc. Slightly eccentric toward the left. Not significantly changed. L5-S1: Bulging disc with a broad-based central/left paracentral disc osteophyte complex slightly eccentric toward the left abutting the anteromedial aspect of both S1 nerve roots not significantly changed. No fracture or dislocation. Overall no significant change from 04/23/2016 IMPRESSION: L3-L4: There is concentric bulging disc at L3-L4 along with mild facet and ligamentum flavum hypertrophy not significantly changed. L4-L5: Mild concentric bulging disc. Slightly eccentric toward the left. Not significantly changed. L5-S1: Bulging disc with a broad-based central/left paracentral disc osteophyte complex slightly eccentric toward the left abutting the anteromedial aspect of both S1 nerve roots not significantly changed
== END ==
PROVIDERS: PCP Family Medicine; Visit Provider Clinical Nurse Specialist Family Health
DX: M54.5 Low back pain (principal)
CPT/HCPCS: 72131

== ENCOUNTER → 2018-07-05 10:57 | Outpatient (POV) | payer BC, MEDICAID, SELFPAY ==
[2018-07-05 11:26] VITALS: BP 111/83; PULSE 72; RESP 18; O2SAT 98; BMI 31.9
--- NOTE | 2018-07-05 11:35 | HMH.PAINSOAP ---
[facility] Pain Management SOAP Note Subjective:: Patient is a pleasant 38-year-old white female who presents for follow-up after CT scan. Patient states most of her pain is in her right hip. CT scan shows minimal changes in her low back. Patient has not been seen by Orth O. Patient does have an implanted stimulator to help with pain. She rates her pain a 5 out of 10. ROS General: no recent weight change, no fever, no sleep disturbances Respiratory: no cough, no shortness of air, no recurring pulmonary infections Cardiovascular/Peripheral Vascular: No chest pain, No palpitations, no edema, no shortness of breath. Gastrointestinal: no incontinence, normal bowel movements reported Genitourinary: no incontinence Musculoskeletal: Right hip pain Psychiatric: normal mood/ affect Neurological: [denies weakness in extremities], [denies balance issues] Objective:: Physical Exam General: Alert and oriented x3, no acute distress, pleasant and cooperative, [on room air] Lungs: Resps E/U, Symmetrical chest expansion, Eyes: PERRL Musculoskeletal: Flexion and extension of lumbar spine somewhat guarded secondary to pain, deep tendon reflexes normal, strength in upper and lower extremities [5/5], [abnormal gait noted] Neurological: speech clear, gas appliance adjuster equal, no gross sensory deficits Assessment:: Degenerative disc disease lumbar spine lumbar radiculopathy along with right hip pain Plan:: We will send her to orthopedic consultation in regards to her right hip pain. I will follow-up with her on an as-needed basis. Dr. Patel has reviewed this note and agrees with this plan of care. This note was dictated using voice recognition software and may contain errors or omissions
== END ==
PROVIDERS: PCP Family Medicine; Visit Provider Clinical Nurse Specialist Family Health
DX: M51.16 Intervertebral disc disorders with radiculopathy, lumbar region (principal); M25.551 Pain in right hip
CPT/HCPCS: 99212

== ENCOUNTER → 2018-07-12 15:22 | Outpatient (CLI) | payer BC, MEDICAID, SELFPAY ==
--- NOTE | 2018-07-12 15:24 | MM_ITS ---
MM Dig screening mamm BI w/CAD ORDERING PHYSICIAN : Simeon Live MD PATIENT AGE: 38 years GENDER: Female COMPARISON: Baseline mammogram with no previous for comparison . INDICATION: ITS.Period: Routine Screening Mammogram . No hormones. No new complaints noncontributory family history TECHNIQUE: Standard imaging sequences CC views along with 2 set MLO views were obtained. R2 CAD reviewed. FINDINGS: . Moderate breast density. No suspicious dominant mass nor suspicious calcifications either breast. The minor asymmetry does not appear to be of significance. . Bilateral follow-up in not over one year recommended. RIGHT BREAST: between the 2 MLO views from today we see No persistent suspicious nodule or mass. But follow-up in one year adequate. LEFT BREAST:No areas of significant concern. Likely Minor ductal prominence retroareolar region bilateral =====IMPRESSION: Baseline mammogram. ... No areas of significant concern. Bilateral follow-up in one year would be recommended and encouraged to additionally confirm baseline BI-RADS Category: 2 Benign Finding(s) RECOMMENDED FOLLOW-UP: 1YR 1 YEAR FOLLOW-UP (A letter has been sent to the patient regarding results of the study.)
== END ==
PROVIDERS: PCP Family Medicine; Visit Provider Nurse Practitioner Obstetrics & Gynecology
DX: Z12.31 Encounter for screening mammogram for malignant neoplasm of breast (principal)
CPT/HCPCS: 77067

== ENCOUNTER → 2018-07-27 10:46 | Outpatient (CLI) | payer BC, MEDICAID, SELFPAY ==
--- NOTE | 2018-07-27 10:52 | XR_ITS ---
XR hip RT 2-3V w/pelvis HISTORY: Right hip pain ITS.REASON: AP pelvis + AP/ lateral rt hip ORDERING PHYSICIAN: Dipti Swanson MD PATIENT AGE: 38 years COMPARISON: None FINDINGS: No fracture or dislocation is evident. No significant degenerative change. No lytic or blastic change. Unremarkable soft tissues There is an IUD present in there are bilateral tubal ligation clips. Epidural stimulator device noted along the lower lumbar region. IMPRESSION: Negative right hip
== END ==
PROVIDERS: PCP Family Medicine; Visit Provider Orthopaedic Surgery
DX: M25.551 Pain in right hip (principal)
CPT/HCPCS: 73502

== ENCOUNTER → 2018-08-12 10:32 | Outpatient (CLI) | payer BC, MEDICAID, SELFPAY ==
--- NOTE | 2018-08-12 10:34 | US_ITS ---
US thyroid HISTORY: ITS.REASON: thyrooid nodule ORDERING PHYSICIAN: Miguel Qiu MD PATIENT AGE: 38 years Comparison: 02/17/2018 FINDINGS: The isthmus is thickened at 5 mm previously measuring 4 mm. The right lobe is 5.6 x 1.5 x 1.7 cm. Hypoechoic nodule is present in the mid polar region posteriorly at 10 x 5 mm unchanged Isoechoic nodule present in the lower pole at 8 x 8 mm unchanged The left lobe is 5.1 x 1.7 x 1.7 cm and has an unremarkable appearance. IMPRESSION: Thyromegaly with no change in the right-sided nodules
== END ==
PROVIDERS: PCP Family Medicine; Visit Provider Otolaryngology
DX: E04.9 Nontoxic goiter, unspecified (principal)
CPT/HCPCS: 76536

== ENCOUNTER → 2018-08-22 10:45 | Outpatient (POV) | payer BC, MEDICAID, SELFPAY ==
[2018-08-22 11:12] VITALS: BP 130/79; PULSE 73; RESP 18; O2SAT 98; BMI 30.7
--- NOTE | 2018-08-22 12:04 | HMH.PAINSOAP ---
[facility] Pain Management SOAP Note Subjective:: Patient is a pleasant 38-year-old white female who presents today for follow-up. Patient is having worsening right hip and leg pain. Patient is continuing physical therapy. Patient had a long discussion in regards to plan of care. Patient rates her pain as 5 out of 10. ROS General: no recent weight change, no fever, no sleep disturbances Respiratory: no cough, no shortness of air, no recurring pulmonary infections Cardiovascular/Peripheral Vascular: No chest pain, No palpitations, no edema, no shortness of breath. Gastrointestinal: no incontinence, normal bowel movements reported Genitourinary: no incontinence Musculoskeletal: Right hip pain Psychiatric: normal mood/ affect Neurological: [denies weakness in extremities], [denies balance issues] Objective:: Physical Exam General: Alert and oriented x3, no acute distress, pleasant and cooperative, [on room air] Lungs: Resps E/U, Symmetrical chest expansion, Eyes: PERRL Musculoskeletal: Flexion and extension of lumbar spine somewhat guarded secondary to pain, deep tendon reflexes normal, strength in upper and lower extremities [5/5], slightly antalgic gait noted Neurological: speech clear, senior datastage developer equal, no gross sensory deficits Assessment:: Degenerative disc disease lumbar spine with lumbar radiculopathy Plan:: We will call the patient in Zanaflex 4 mg 1 p.o. twice daily as needed to help with her physical therapy. We will also start her on Cymbalta 30 mg 1 p.o. daily. I will follow-up with her in 1 month reassess her symptoms at that time she is been instructed to call the office if she has any issues prior to her next appointment. Dr. Patel has reviewed this note and agrees with this plan of care. This note was dictated using voice recognition software and may contain errors or omissions
== END ==
PROVIDERS: PCP Family Medicine; Visit Provider Clinical Nurse Specialist Family Health
DX: M51.16 Intervertebral disc disorders with radiculopathy, lumbar region (principal)
CPT/HCPCS: 99212

== ENCOUNTER 2018-08-26 15:00 | Outpatient (RCR) | payer BC, MEDICAID, SELFPAY ==
--- NOTE | 2018-08-02 09:32 | HMH.PTOPEV ---
PT Outpatient Evaluation Rehab PT Outpatient Evaluation Start: 08/02/18 09:22 Freq: Status: Active Protocol: Document 08/02/18 09:22 JULISSA (Rec: 08/02/18 09:32 JULISSA [id number]) Electronically Signed By Rony Shelby, PT 08/02/18 09:22 Outpatient Therapy Subjective History Subjective History Pt reports h/o chronic LBP and R hip pain for ~1 yr. Pt reports neurostimulator implant in , 'didn't help my low back pain', and insidious onset R lateral hip which hasn't improved with ' multiple injections'. Pt reports increased R hip pain w / R sideyling. Chief Complaint Pain Symptom Type Ache,Sharp,Dull,Burning Symptoms Relieved By Nothing Symptoms Aggravated By Physical Activity,Walking Prior Functional Limitations Sleeping,Standing,Squatting, Walking Current Functional Limitations Housework,Sleeping,Standing, Squatting,Walking Symptom Description Constant but Variable Level of pain today (0-10) 7 Pain scale - at its best (0-10) 6 Pain scale - at its worst (0-10) 9 Hip/Knee Eval Gait Observation General Gait Pattern Observation Antalgic Gait Assistive Device Assistive Devices None / NA Palpation Tenderness right Knee Palpation Overall Comment 3/4 GRT. TRO., PIRI Hip Palpation Findings Tenderness MMT left Hip Flexion Strength Grade 5 Normal Hip Abduction Strength Grade 4 Good Hip Adduction Strength Grade 4 Good Hip Extension Strength Grade 4 Good Hip External Rotation Strength Grade 4 Good Hip Internal Rotation Strength Grade 4 Good Knee Extension Strength Grade 5 Normal Knee Flexion Strength Grade 5 Normal right Hip Flexion Strength Grade 4- Good- Hip Abduction Strength Grade 4- Good- Hip Adduction Strength Grade 4 Good Hip Extension Strength Grade 4 Good Hip External Rotation Strength Grade 4 Good Hip Internal Rotation Strength Grade 4 Good Knee Extension Strength Grade 5 Normal Knee Flexion Strength Grade 4- Good- ROM Hip Flexion w/Knee Flexed Passive Range 0-95 of Motion (degrees) Hip Abduction Passive Range of Motion ( 0-60 degrees) Hip External Rotation Passive Range of 0-45 Motion (degrees) Hip Internal Rotation Passive Range of 0-35 Motion (degrees) Hip ROM Limitations Soft Tissue Tightness,Pain Special Tests Hip Piriformis Test Negative Left,Positive
== END 2018-08-26 15:05 | disposition home or self-care (01) ==
LOC: PT 15:00
PROVIDERS: Visit Provider Orthopaedic Surgery
DX: M70.61 Trochanteric bursitis, right hip (principal)
CPT/HCPCS: 97010; 97110; 97163

== ENCOUNTER 2018-09-23 15:30 | Outpatient (RCR) | payer BC, MEDICAID, SELFPAY ==
--- NOTE | 2018-09-14 13:51 | HMH.PTOPEV ---
PT Outpatient Evaluation Rehab PT Outpatient Evaluation Start: 09/14/18 13:39 Freq: Status: Active Protocol: Document 09/14/18 13:39 JULISSA (Rec: 09/14/18 13:50 JULISSA [id number]) Electronically Signed By Rony Shelby, PT 09/14/18 13:39 Outpatient Therapy Subjective History Subjective History Pt reports insidious onset chronic R hip pain for ~2 months, lateral in origin. Pt reports exacerbation with R sidelying or palpation of grt. tro. area on R. Pt reports chronic LBP for ~2 yrs, neurostimulator implant, ' turned off right now, and doesn't seem to help that much anyway'. MD follow-up 10/10/18 Chief Complaint Pain,Spasms,Stiff,Swelling Symptom Type Ache,Sharp,Dull,Burning Symptoms Relieved By Nothing Symptoms Aggravated By Standing,Physical Activity Prior Functional Limitations Standing,Walking Current Functional Limitations Standing,Squatting,Walking, Stairs Symptom Description Constant but Variable Level of pain today (0-10) 3 Pain scale - at its best (0-10) 3 Pain scale - at its worst (0-10) 10 Hip/Knee Eval Gait Observation General Gait Pattern Observation Antalgic Gait,Wide Based Gait Assistive Device Assistive Devices None / NA Palpation Tenderness right Knee Palpation Overall Comment 3/4 glut max, med, min, TFL Hip Palpation Findings Tenderness,Trigger Point, Muscle Guarding MMT left Hip Flexion Strength Grade 4 Good Hip Abduction Strength Grade 4 Good Hip Adduction Strength Grade 4 Good Hip Extension Strength Grade 4 Good Hip External Rotation Strength Grade 4 Good Hip Internal Rotation Strength Grade 4 Good Knee Extension Strength Grade 5 Normal Knee Flexion Strength Grade 5 Normal right Hip Flexion Strength Grade 4 Good Hip Abduction Strength Grade 4- Good- Hip Adduction Strength Grade 4- Good- Hip Extension Strength Grade 4- Good- Hip External Rotation Strength Grade 4 Good Hip Internal Rotation Strength Grade 4- Good- Knee Extension Strength Grade 5 Normal Knee Flexion Strength Grade 5 Normal ROM Hip External Rotation Passive Range of 0-45 Motion (degrees) Hip Internal Rotation Passive Range of 0-60 Motion (degrees) Hip ROM Limitations Soft Tissue Tightness,Pain Special Tests Hip Piriformis Test Negative Left,Negative Right Sciatic Nerve Tension Test Negative Left,Negat
== END 2018-09-23 15:35 | disposition home or self-care (01) ==
LOC: PT 15:30
PROVIDERS: Visit Provider Orthopaedic Surgery
DX: M70.61 Trochanteric bursitis, right hip (principal)
CPT/HCPCS: 97010; 97014; 97035; 97110; 97140; 97163; G0283

== ENCOUNTER → 2018-09-26 09:04 | Outpatient (POV) | payer BC, MEDICAID, SELFPAY ==
[2018-09-26 09:33] VITALS: BP 124/70; PULSE 77; RESP 18; O2SAT 98; BMI 30.5
--- NOTE | 2018-09-26 09:50 | HMH.PAINSOAP ---
[facility] Pain Management SOAP Note Subjective:: Patient is a pleasant 38-year-old white female who presents today for follow-up. She is being seen for worsening right hip pain and leg pain. She is also seeing Dr. vera. Patient has tried PT, dry needling, bursa injections, and also has a spinal cord stimulator. She has met with the stimulator publications sales representative multiple times, and states that it does not help. She has been taking Cymbalta 30 mg 1 p.o. daily. She is also been taking Zanaflex 4 mg 1 p.o. two times daily as needed, along with her physical therapy. Patient rates her pain a 7 out of 10. She says the Cymbalta is not effective and would like to stop taking it. Physical therapy, along with a home stretching program, and NSAIDs. ROS General: no recent weight change, no fever, no sleep disturbances Respiratory: no cough, no shortness of air, no recurring pulmonary infections Cardiovascular/Peripheral Vascular: No chest pain, No palpitations, no edema, no shortness of breath. Gastrointestinal: no incontinence, normal bowel movements reported Genitourinary: no incontinence Musculoskeletal: Back pain Psychiatric: normal mood/ affect, [denies depression], [denies anxiety] Neurological: [denies weakness in extremities], [denies balance issues] Objective:: Physical Exam General: Alert and oriented x3, no acute distress, pleasant and cooperative, [on room air] Lungs: Resps E/U, Symmetrical chest expansion, Eyes: PERRL Musculoskeletal: Flexion and extension of lumbar spine somewhat guarded secondary to pain, deep tendon reflexes normal, strength in upper and lower extremities [5/5], normal gait noted Neurological: speech clear, thread spinner equal, no gross sensory deficits Assessment:: Degenerative disc disease lumbar spine with lumbar radiculopathy Plan:: We will continue the patient on Zanaflex 4 mg 1 p.o. twice daily as needed and she will continue her physical therapy. We will DC her Cymbalta. Reassess her symptoms at that time. She will also continue with her follow-up with Dr. vera. She is been instructed to call the office if she has any issues prior to her next appointment.
--- NOTE | 2018-09-26 10:06 | P.CONS_ITS ---
[facility] Pain Management SOAP Note Subjective:: Patient is a pleasant 38-year-old white female who presents today for follow-up. She is being seen for worsening right hip pain and leg pain. She is also seeing Dr. vera. Patient has tried PT, dry needling, bursa injections, and also has a spinal cord stimulator. She has met with the stimulator banking representative multiple times, and states that it does not help. She has been taking Cymbalta 30 mg 1 p.o. daily. She is also been taking Zanaflex 4 mg 1 p.o. two times daily as needed, along with her physical therapy. Patient rates her pain a 7 out of 10. She says the Cymbalta is not effective and would like to stop taking it. Physical therapy, along with a home stretching program, and NSAIDs. ROS General: no recent weight change, no fever, no sleep disturbances Respiratory: no cough, no shortness of air, no recurring pulmonary infections Cardiovascular/Peripheral Vascular: No chest pain, No palpitations, no edema, no shortness of breath. Gastrointestinal: no incontinence, normal bowel movements reported Genitourinary: no incontinence Musculoskeletal: Back pain Psychiatric: normal mood/ affect, [denies depression], [denies anxiety] Neurological: [denies weakness in extremities], [denies balance issues] Objective:: Physical Exam General: Alert and oriented x3, no acute distress, pleasant and cooperative, [on room air] Lungs: Resps E/U, Symmetrical chest expansion, Eyes: PERRL Musculoskeletal: Flexion and extension of lumbar spine somewhat guarded secondary to pain, deep tendon reflexes normal, strength in upper and lower extremities [5/5], normal gait noted Neurological: speech clear, suspension cord tier equal, no gross sensory deficits Assessment:: Degenerative disc disease lumbar spine with lumbar radiculopathy Plan:: We will continue the patient on Zanaflex 4 mg 1 p.o. twice daily as needed and she will continue her physical therapy. We will DC her Cymbalta. Reassess her symptoms at that time. She will also continue with her follow-up with Dr. vera. She is been instructed to call the office if she has any issues prior to her next appointment.
--- NOTE | 2018-10-05 13:40 | PC.PHONENOTE ---
called in refill rx for Zanaflex 4mg BID with 2 refills per provider's order.
== END ==
PROVIDERS: PCP Family Medicine; Visit Provider Clinical Nurse Specialist Family Health
DX: M51.16 Intervertebral disc disorders with radiculopathy, lumbar region (principal)
CPT/HCPCS: 99212

== ENCOUNTER → 2018-10-18 09:47 | Outpatient (POV) | payer BC, MEDICAID, SELFPAY ==
[2018-10-18 10:05] VITALS: BP 127/84; PULSE 77; RESP 18; O2SAT 98
--- NOTE | 2018-10-18 11:47 | HMH.PAINSOAP ---
[facility] Pain Management SOAP Note Subjective:: Patient is a pleasant 38-year-old white female who presents today for follow-up. She is being seen for worsening right hip pain and right leg pain. Patient is also being seen by Dr. Morgan. She has tried and failed PT, dry needling, bursa injections and also has a spinal cord stimulator. Dr. Morgan did refer the patient to a specialist in [place], but the patient has not followed up with that appointment yet. Her appointment is in November. She says that she is having continued pain. She like to discuss further treatment options. Patient also says that she did meet with the director of spinal cord stimulatorpresented of this week to have her stimulator reprogrammed. She says that she did not get any relief with this. She rates her pain an 8 out of 10 today. She says that her pain is worse with standing and movement and she says that she cannot perform daily functions for more than 10 minutes at a time. She is also noticing that she is having some increased edema in her right leg. Review of Systems General: No recent weight changes, no fever, no sleep disturbances Respiratory: No cough, no shortness of air, no recurring pulmonary infections Cardiovascular/peripheral vascular: No chest pain, no palpitations, no edema, no shortness of breath Gastrointestinal: No new onset incontinence, normal bowel movements reported Genitourinary: No new onset incontinence Musculoskeletal: Back pain, leg pain, hip pain Psychiatric: Normal mood/affect Neurological: [Denies weakness in extremities], [denies balance issues] Objective:: Physical exam General: Alert and oriented x3, no acute distress, pleasant and cooperative, [on room air] Lungs: Respirations even and unlabored, symmetrical chest expansion Eyes: PERRL Musculoskeletal: Flexion and extension of lumbar spine somewhat guarded secondary to pain, deep tendon reflexes normal, strength in upper and lower extremities [5/5], [abnormal gait noted] Neurological: Speech clear, circle edger equal, no gross sensory deficit Assessment:: Degenerative disc disease of lumbar spine with lumbar radiculopathy Plan:: The patient will follow up with a hip production estimator in [place] to determine further options for the patient. We will also see the patient back after that appointment to discuss further plan of care and reassess her symptoms at that time. She is been instructed to call the office if she has any concerns prior to her next appointment. The end
--- NOTE | 2018-10-18 12:21 | P.CONS_ITS ---
[facility] Pain Management SOAP Note Subjective:: Patient is a pleasant 38-year-old white female who presents today for follow-up. She is being seen for worsening right hip pain and right leg pain. Patient is also being seen by Dr. Morgan. She has tried and failed PT, dry needling, bursa injections and also has a spinal cord stimulator. Dr. Morgan did refer the patient to a specialist in [place], but the patient has not followed up with that appointment yet. Her appointment is in November. She says that she is having continued pain. She like to discuss further treatment options. Patient also says that she did meet with the director of spinal cord stimulatorpresented of this week to have her stimulator reprogrammed. She says that she did not get any relief with this. She rates her pain an 8 out of 10 today. She says that her pain is worse with standing and movement and she says that she cannot perform daily functions for more than 10 minutes at a time. She is also noticing that she is having some increased edema in her right leg. Review of Systems General: No recent weight changes, no fever, no sleep disturbances Respiratory: No cough, no shortness of air, no recurring pulmonary infections Cardiovascular/peripheral vascular: No chest pain, no palpitations, no edema, no shortness of breath Gastrointestinal: No new onset incontinence, normal bowel movements reported Genitourinary: No new onset incontinence Musculoskeletal: Back pain, leg pain, hip pain Psychiatric: Normal mood/affect Neurological: [Denies weakness in extremities], [denies balance issues] Objective:: Physical exam General: Alert and oriented x3, no acute distress, pleasant and cooperative, [on room air] Lungs: Respirations even and unlabored, symmetrical chest expansion Eyes: PERRL Musculoskeletal: Flexion and extension of lumbar spine somewhat guarded secondary to pain, deep tendon reflexes normal, strength in upper and lower extremities [5/5], [abnormal gait noted] Neurological: Speech clear, hawk missile air defense artillery equal, no gross sensory deficit Assessment:: Degenerative disc disease of lumbar spine with lumbar radiculopathy Plan:: The patient will follow up with a hip sales performance analyst in [place] to determine further options for the patient. We will also see the patient back after that appointment to discuss further plan of care and reassess her symptoms at that time. She is been instructed to call the office if she has any concerns prior to her next appointment. The end
== END ==
PROVIDERS: PCP Family Medicine; Visit Provider Clinical Nurse Specialist Family Health
DX: M51.16 Intervertebral disc disorders with radiculopathy, lumbar region (principal)
CPT/HCPCS: 99212

== ENCOUNTER → 2018-11-21 11:37 | Outpatient (POV) | payer BC, MEDICAID, SELFPAY ==
[2018-11-21 11:50] VITALS: BP 128/84; PULSE 78; RESP 18; O2SAT 98
--- NOTE | 2018-11-21 12:44 | HMH.PAINSOAP ---
[facility] Pain Management SOAP Note Subjective:: Patient is a pleasant 38-year-old white female who presents today for follow-up. Patient has quite a bit of right hip pain has not been relieved by her spinal cord stimulator. She is been seen by hip specialist who sent her back to therapy she states that it is excruciating. She rates her pain a 7 out of 10. Patient is tried and failed gabapentin, Lyrica, Cymbalta. She is a current smoker. Patient and I had a long discussion in regards to her next move this point I think we should try diagnostic SI joint injection for the patient. To see if she would be a candidate for corner loc. ROS General: no recent weight change, no fever, no sleep disturbances Respiratory: no cough, no shortness of air, no recurring pulmonary infections Cardiovascular/Peripheral Vascular: No chest pain, No palpitations, no edema, no shortness of breath. Gastrointestinal: no incontinence, normal bowel movements reported Genitourinary: no incontinence Musculoskeletal: SI joint pain, back pain, hip pain Psychiatric: normal mood/ affect Neurological: [denies weakness in extremities], [denies balance issues] Objective:: Physical Exam General: Alert and oriented x3, no acute distress, pleasant and cooperative, [on room air] Lungs: Resps E/U, Symmetrical chest expansion, Eyes: PERRL Musculoskeletal: Flexion and extension of lumbar spine somewhat guarded secondary to pain, deep tendon reflexes normal, strength in upper and lower extremities [5/5], [abnormal gait noted] positive Doe test on the right side positive Ganga's test on the right side positive SI joint compression test on the right side Neurological: speech clear, engine 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 She is can continue physical therapy we also discussed adding Wellbutrin 150 mg daily to see if this helps her quit smoking along with decreasing some of her pain. Dr. Patel has reviewed this note and agrees with this plan of care. This note was dictated using voice recognition software and may contain errors or omissions Pain Management Hx Components *Have you ever received a pneumonia vaccine?: No *Have you received a flu vaccine this season?: No - *Social History *Occupational Status:: other *Travel in the last 8 weeks: None
== END ==
PROVIDERS: PCP Family Medicine; Visit Provider Clinical Nurse Specialist Family Health
DX: M46.1 Sacroiliitis, not elsewhere classified (principal); M25.551 Pain in right hip
CPT/HCPCS: 99212

== ENCOUNTER 2018-12-30 08:30 | Outpatient (RCR) | payer BC, MEDICAID, SELFPAY | END 2018-12-30 08:35 | disposition home or self-care (01) | LOC: PT 08:30 | PROVIDERS: PCP Family Medicine; Visit Provider Physical Medicine & Rehabilitation | DX: G57.00 Lesion of sciatic nerve, unspecified lower limb (principal); S76.919A Strain of unspecified muscles, fascia and tendons at thigh level, unspecified thigh, initial encounter; M25.551 Pain in right hip | CPT/HCPCS: 97010; 97014; 97033; 97110; 97163; 97164; G0283 ==

== ENCOUNTER → 2019-01-02 11:35 | Outpatient (POV) | payer BC, MEDICAID, SELFPAY ==
[2019-01-02 11:46] VITALS: BP 137/85; PULSE 85; RESP 18; O2SAT 98
--- NOTE | 2019-01-02 12:30 | HMH.PAINSOAP ---
[facility] Pain Management SOAP Note Subjective:: My patient is a pleasant 38-year-old white female who presents today for follow-up after her SI joint injection. Patient is doing better rating her pain however 9 out of 10 due to low back pain. Patient and I have discussed a corner lock and she is interested in pursuing this. However due to her flare in her pain she has not been able to think about this at this time. Patient will be put on a short round of steroids and was given information on the corner lock procedure. We did try her on Wellbutrin however she was unable to tolerate it ROS General: no recent weight change, no fever, no sleep disturbances Respiratory: no cough, no shortness of air, no recurring pulmonary infections Cardiovascular/Peripheral Vascular: No chest pain, No palpitations, no edema, no shortness of breath. Gastrointestinal: no incontinence, normal bowel movements reported Genitourinary: no incontinence Musculoskeletal: Back pain, SI joint pain Psychiatric: normal mood/ affect, [denies depression], [denies anxiety] Neurological: [denies weakness in extremities], [denies balance issues] Objective:: Physical Exam General: Alert and oriented x3, no acute distress, pleasant and cooperative, [on room air] Lungs: Resps E/U, Symmetrical chest expansion, Eyes: PERRL Musculoskeletal: Flexion and extension of lumbar spine somewhat guarded secondary to pain, deep tendon reflexes normal, strength in upper and lower extremities [5/5], [abnormal gait noted] SI joint compression test positive, Doe test positive left side, Ganga's test positive on left side Neurological: speech clear, 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 Also put her on a short-term dose of steroids for her acute back pain. Dr. Ptael has reviewed this note and agrees with this plan of care. This note was dictated using voice recognition software and may contain errors or omissions [facility] History I have reviewed the patient's past medical history: Yes Medical History: Reports:: Atrial Fibrillation, Gastroesophageal Reflux Disease(GERD), Hyperlipidemia, Hypertension Denies:: Cancer, Diabetes Mellitus Type 1, Diabetes Mellitus Type 2, Internal Pacemaker, Lung Disease, MRSA, Seizures *Have you ever received a pneumonia vaccine?: No *Have you received a flu vaccine this season?: No Other Medical History: Reports: Arthritis, Hypothyroidism, Sinus Problems, Other. Denies: Blood Transfusion Reaction Laterality Cases: Right: Arthroscopy Shoulder, Bilateral: Carpal Tunnel Release, Tonsillectomy Other Surgeries: Yes: Tubal Ligation, Other. No: Pacemaker Amputation: No Fractures: No - *Social History Smoking Status: Current every day smoker Tobacco Type: cigarettes # Packs/Day (cigarettes): 1 Alcohol Intake: never Substance Use Type: denies use *Occupational Status:: other Housing: house Household Members: spouse *Travel in the last 8 weeks: None Family Hx:: Heart Attack, Hypertension
--- NOTE | 2019-01-02 12:33 | P.CONS_ITS ---
[facility] Pain Management SOAP Note Subjective:: My patient is a pleasant 38-year-old white female who presents today for follow- up after her SI joint injection. Patient is doing better rating her pain however 9 out of 10 due to low back pain. Patient and I have discussed a corner lock and she is interested in pursuing this. However due to her flare in her pain she has not been able to think about this at this time. Patient will be put on a short round of steroids and was given information on the corner lock procedure. We did try her on Wellbutrin however she was unable to tolerate it ROS General: no recent weight change, no fever, no sleep disturbances Respiratory: no cough, no shortness of air, no recurring pulmonary infections Cardiovascular/Peripheral Vascular: No chest pain, No palpitations, no edema, no shortness of breath. Gastrointestinal: no incontinence, normal bowel movements reported Genitourinary: no incontinence Musculoskeletal: Back pain, SI joint pain Psychiatric: normal mood/ affect, [denies depression], [denies anxiety] Neurological: [denies weakness in extremities], [denies balance issues] Objective:: Physical Exam General: Alert and oriented x3, no acute distress, pleasant and cooperative, [on room air] Lungs: Resps E/U, Symmetrical chest expansion, Eyes: PERRL Musculoskeletal: Flexion and extension of lumbar spine somewhat guarded secondary to pain, deep tendon reflexes normal, strength in upper and lower extremities [5/5], [abnormal gait noted] SI joint compression test positive, Doe test positive left side, Ganga's test positive on left side Neurological: speech clear, 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 Also put her on a short- term dose of steroids for her acute back pain. Dr. Patel has reviewed this note and agrees with this plan of care. This note was dictated using voice recognition software and may contain errors or omissions [facility] History I have reviewed the patient's past medical history: Yes Medical History: Reports:: Atrial Fibrillation, Gastroesophageal Reflux Disease(GERD), Hyperlipidemia, Hypertension Denies:: Cancer, Diabetes Mellitus Type 1, Diabetes Mellitus Type 2, Internal Pacemaker, Lung Disease, MRSA, Seizures *Have you ever received a pneumonia vaccine?: No *Have you received a flu vaccine this season?: No Other Medical History: Reports: Arthritis, Hypothyroidism, Sinus Problems, Other. Denies: Blood Transfusion Reaction Laterality Cases: Right: Arthroscopy Shoulder, Bilateral: Carpal Tunnel Release, Tonsillectomy Other Surgeries: Yes: Tubal Ligation, Other. No: Pacemaker Amputation: No Fractures: No - *Social History Smoking Status: Current every day smoker Tobacco Type: cigarettes # Packs/Day (cigarettes): 1 Alcohol Intake: never Substance Use Type: denies use *Occupational Status:: other Housing: house Household Members: spouse *Travel in the last 8 weeks: None Family Hx:: Heart Attack, Hypertension
== END ==
PROVIDERS: PCP Family Medicine; Visit Provider Clinical Nurse Specialist Family Health
DX: M46.1 Sacroiliitis, not elsewhere classified (principal)
CPT/HCPCS: 99212

== ENCOUNTER → 2019-02-16 12:55 | Outpatient (CLI) | payer BC, OTHER, SELFPAY ==
--- NOTE | 2019-02-16 12:56 | US_ITS ---
PROCEDURE: US THYROID CLINICAL INDICATION: hx goiter Follow-up thyroid nodules COMPARISON: THY US thyroid from 08/12/2018 FINDINGS: Right lobe: The right lobe is enlarged at 4.6 x 1.5 x 2.3 cm. There is an 8 mm cyst in the upper pole posteriorly. An 8 x 6 mm isoechoic nodules present in the mid polar region unchanged. Left lobe: 4.4 x 1.4 x 1.7 cm. No discrete nodule Additional findings: IMPRESSION: Enlarged thyroid gland with no change in the benign-appearing nodules on the right Dictated by: John Yanez MD 02/16/2019 17:34 Electronically signed by John Yanez MD in [place] 02/16/2019 17:34
== END ==
PROVIDERS: PCP Family Medicine; Visit Provider Otolaryngology
DX: E01.0 Iodine-deficiency related diffuse (endemic) goiter (principal); E04.9 Nontoxic goiter, unspecified
CPT/HCPCS: 76536

== ENCOUNTER → 2019-03-06 12:44 | Outpatient (POV) | payer BC, OTHER, SELFPAY ==
[2019-03-06 13:01] VITALS: BP 119/84; PULSE 74; RESP 18; O2SAT 98; BMI 30.9
--- NOTE | 2019-03-06 13:05 | HMH.PAINSOAP ---
[facility] Pain Management SOAP Note Subjective:: Patient is a pleasant 39-year-old white female presents today for follow-up after SI joint complete fusion denial. Patient finished seeing the hip specialist to recommend her in clinic who forward with an SI joint fusion however had no other options for her pain control. Patient gets about 80% relief with SI joint injections in the last several months. However today most of her pain is in her right SI in her right hip we will plan to move forward with a right SI joint injection right greater trochanteric bursa injection. Patient just recently finished physical therapy and completed all of the sessions. Patient is continuing a home stretching program. Patient has no active infection. ROS General: no recent weight change, no fever, no sleep disturbances Respiratory: no cough, no shortness of air, no recurring pulmonary infections Cardiovascular/Peripheral Vascular: No chest pain, No palpitations, no edema, no shortness of breath. Gastrointestinal: no new onset incontinence, normal bowel movements reported Genitourinary: no new onset incontinence Musculoskeletal: Right hip pain Psychiatric: normal mood/ affect Neurological: [denies new onset weakness in extremities], [denies new onset balance issues] Objective:: Physical Exam General: Alert and oriented x3, no acute distress, pleasant and cooperative, [on room air] Lungs: Resps E/U, Symmetrical chest expansion, Eyes: PERRL Musculoskeletal: Flexion and extension of lumbar spine somewhat guarded secondary to pain, deep tendon reflexes normal, strength in upper and lower extremities [5/5], [abnormal gait noted] positive SI joint compression test positive Doe test and positive Ganga's test on the right side, extreme point tenderness over the right greater trochanteric bursa Neurological: speech clear, pet caretaker equal, no gross sensory deficits Assessment:: Chronic sacroiliitis, greater trochanteric bursitis Plan:: We will plan a right SI joint injection right greater trochanteric bursa injection for the patient I believe it would be beneficial given the efficacy of this in the past. And the pain symptomology Follow-up with the patient after reassess his symptoms at that time he is been instructed to call the office if he has any issues prior to his next appointment. Dr. Patel has reviewed this note and agrees with this plan of care. This note was dictated using voice recognition software and may contain errors or omissions [facility] History I have reviewed the patient's past medical history: Yes Medical History: Reports:: Atrial Fibrillation, Gastroesophageal Reflux Disease(GERD), Hyperlipidemia, Hypertension Denies:: Cancer, Diabetes Mellitus Type 1, Diabetes Mellitus Type 2, Internal Pacemaker, Lung Disease, MRSA, Seizures *Have you ever received a pneumonia vaccine?: No *Have you received a flu vaccine this season?: No Other Medical History: Reports: Arthritis, Hypothyroidism, Sinus Problems, Other. Denies: Blood Transfusion Reaction Laterality Cases: Right: Arthroscopy Shoulder, Bilateral: Carpal Tunnel Release, Tonsillectomy Other Surgeries: Yes: Tubal Ligation, Other. No: Pacemaker Amputation: No Fractures: No - *Social History Smoking Status: Current every day smoker Tobacco Type: cigarettes # Packs/Day (cigarettes): 1 Alcohol Intake: never Substance Use Type: denies use *Occupational Status:: other Housing: house Household Members: spouse *Travel in the last 8 weeks: None Family Hx:: Heart Attack, Hypertension
--- NOTE | 2019-03-06 13:08 | P.CONS_ITS ---
[facility] Pain Management SOAP Note Subjective:: Patient is a pleasant 39-year-old white female presents today for follow-up after SI joint complete fusion denial. Patient finished seeing the hip specialist to recommend her in clinic who forward with an SI joint fusion however had no other options for her pain control. Patient gets about 80% relie f with SI joint injections in the last several months. However today most of her pain is in her right SI in her right hip we will plan to move forward with a right SI joint injection right greater trochanteric bursa injection. Patient just recently finished physical therapy and completed all of the sessions. Patient is continuing a home stretching program. Patient has no active infection. ROS General: no recent weight change, no fever, no sleep disturbances Respiratory: no cough, no shortness of air, no recurring pulmonary infections Cardiovascular/Peripheral Vascular: No chest pain, No palpitations, no edema, no shortness of breath. Gastrointestinal: no new onset incontinence, normal bowel movements reported Genitourinary: no new onset incontinence Musculoskeletal: Right hip pain Psychiatric: normal mood/ affect Neurological: [denies new onset weakness in extremities], [denies new onset balance issues] Objective:: Physical Exam General: Alert and oriented x3, no acute distress, pleasant and cooperative, [on room air] Lungs: Resps E/U, Symmetrical chest expansion, Eyes: PERRL Musculoskeletal: Flexion and extension of lumbar spine somewhat guarded secondary to pain, deep tendon reflexes normal, strength in upper and lower extremities [5/5], [abnormal gait noted] positive SI joint compression test positive Doe test and positive Ganga's test on the right side, extreme point tenderness over the right greater trochanteric bursa Neurological: 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 And the pain symptomology Follow-up with the patient after reassess his symptoms at that time he is been instructed to call the office if he has any issues prior to his next appointment. Dr. Patel has reviewed this note and agrees with this plan of care. This note was dictated using voice recognition software and may contain errors or omissions [facility] History I have reviewed the patient's past medical history: Yes Medical History: Reports:: Atrial Fibrillation, Gastroesophageal Reflux Disease(GERD), Hyperlipidemia, Hypertension Denies:: Cancer, Diabetes Mellitus Type 1, Diabetes Mellitus Type 2, Internal Pacemaker, Lung Disease, MRSA, Seizures *Have you ever received a pneumonia vaccine?: No *Have you received a flu vaccine this season?: No Other Medical History: Reports: Arthritis, Hypothyroidism, Sinus Problems, Other. Denies: Blood Transfusion Reaction Laterality Cases: Right: Arthroscopy Shoulder, Bilateral: Carpal Tunnel Release, Tonsillectomy Other Surgeries: Yes: Tubal Ligation, Other. No: Pacemaker Amputation: No Fractures: No - *Social History Smoking Status: Current every day smoker Tobacco Type: cigarettes # Packs/Day (cigarettes): 1 Alcohol Intake: never Substance Use Type: denies use *Occupational Status:: other Housing: house Household Members: spouse *Travel in the last 8 weeks: None Family Hx:: Heart Attack, Hypertension
== END ==
PROVIDERS: PCP Family Medicine; Visit Provider Clinical Nurse Specialist Family Health
DX: M46.1 Sacroiliitis, not elsewhere classified (principal); M70.60 Trochanteric bursitis, unspecified hip
CPT/HCPCS: 99212

== ENCOUNTER → 2019-05-08 14:00 | Outpatient (POV) | payer BC, OTHER, SELFPAY ==
[2019-05-08 15:08] VITALS: BP 127/68; PULSE 77; RESP 18; O2SAT 99
--- NOTE | 2019-05-09 08:36 | P.CONS_ITS ---
[facility] Pain Management SOAP Note Subjective:: Patient is a pleasant 39-year-old white female who presents today for follow-up. Patient and I discussed the removal of her neurostimulator she would like to move forward with this. She does not feel that it effectively takes care of her SI joint pain. Patient and I have talked about an SI joint fusion however she has been denied by her insurance. She may need to see a surgeon in regards to this. She has seen in Ortho surgeon in regards to her hip however it was recommended she do physical therapy. She did complete physical therapy. She rates her pain an 8 out of 10. ROS General: no recent weight change, no fever, no sleep disturbances Respiratory: no cough, no shortness of air, no recurring pulmonary infections Cardiovascular/Peripheral Vascular: No chest pain, No palpitations, no edema, no shortness of breath. Gastrointestinal: no new onset incontinence, normal bowel movements reported Genitourinary: no new onset incontinence Musculoskeletal: SI joint pain Psychiatric: normal mood/ affect, [denies depression], [denies anxiety] Neurological: [denies new onset weakness in extremities], [denies new onset balance issues] Objective:: Physical Exam General: Alert and oriented x3, no acute distress, pleasant and cooperative, [on room air] Lungs: Resps E/U, Symmetrical chest expansion, Eyes: PERRL Musculoskeletal: Flexion and extension of lumbar spine somewhat guarded secondary to pain, deep tendon reflexes normal, strength in upper and lower extremities [5/5], [abnormal gait noted] Neurological: 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 We will then follow-up with her after she is healed from this and discuss potential SI joint fusion. She is been instructed to call the office if she has any issues prior to her next appointment. Dr. Patel has reviewed this note and agrees with this plan of care. This note was dictated using voice recognition software and may contain errors or omissions [facility] History I have reviewed the patient's past medical history: Yes Medical History: Reports:: Atrial Fibrillation, Gastroesophageal Reflux Disease(GERD), Hyperlipidemia, Hypertension, Palpitations Denies:: Cancer, Diabetes Mellitus Type 1, Diabetes Mellitus Type 2, Internal Pacemaker, Lung Disease, MRSA, Seizures *Have you ever received a pneumonia vaccine?: Yes *Have you received a flu vaccine this season?: Yes Other Medical History: Reports: Arthritis, Hypothyroidism, Sinus Problems, Other. Denies: Blood Transfusion Reaction Laterality Cases: Right: Arthroscopy Shoulder, Bilateral: Carpal Tunnel Release, Tonsillectomy Other Surgeries: Yes: Tubal Ligation, Other. No: Pacemaker Amputation: No Fractures: No - *Social History Smoking Status: Current every day smoker Tobacco Type: cigarettes # Packs/Day (cigarettes): 1 Alcohol Intake: never Substance Use Type: denies use *Occupational Status:: other Housing: house Household Members: spouse *Travel in the last 8 weeks: None Family Hx:: Heart Attack, Hypertension
== END ==
PROVIDERS: PCP Family Medicine; Visit Provider Clinical Nurse Specialist Family Health
DX: M46.1 Sacroiliitis, not elsewhere classified (principal)
CPT/HCPCS: 99212

== ENCOUNTER → 2019-05-18 12:29 | Outpatient (CLI) | payer BC, OTHER, SELFPAY ==
[2019-05-18 13:01] LABS: Basophils % 0.6 % (0.1-2.0); Eosinophils # 0.2 K/mm3 (0.0-0.4); Eosinophils % 2.9 % (0.1-12.0); Hematocrit 42.5 % (37.0-47.0); Hemoglobin 14.7 g/dL (12.2-16.2); Lymphocytes % 27.4 % (10-50); Mean Corpuscular HGB Conc 34.6 g/dL (31.8-35.4); Mean Corpuscular Hemoglobin 33.5 pg (27.0-31.2); Mean Corpuscular Volume 96.7 fl (81-99); Mean Platelet Volume 9.4 fl (7.4-10.4); Monocytes # 0.3 K/mm3 (0.1-1.0); Monocytes % 4.3 % (1.7-9.3); Neutrophils # 4.7 K/mm3 (1.8-7.8); Neutrophils % 64.8 % (37.0-80.0); Platelet Count 160 K/mm3 (142-424); Red Cell Distribution Width 12.7 % (11.5-17.5); White Blood Count 7.2 K/mm3 (4.8-10.8)
--- NOTE | 2019-05-18 13:34 | XR_ITS ---
PROCEDURE: XR CHEST 2V CLINICAL HISTORY: COUGH COMPARISON: CXR CHEST(2 VIEWS-NOT PORTABLE) from 03/13/2015 CXR2V XR chest 2V from 11/18/2017 FINDINGS: The cardiomediastinal silhouette and pulmonary vascularity are within normal limits. No lobar consolidation or collapse. Epidural catheter is noted with the tip at T7. No acute bony anomalies. IMPRESSION: No acute findings. Dictated by: John Yanez MD 05/18/2019 15:12 Electronically signed by John Yanez MD in [place] 05/18/2019 15:12
[2019-05-18 15:03] LABS: Anion Gap 12.1 mEq/L (5-15); Blood Urea Nitrogen 11 mg/dL (7-18); Calcium 8.5 mg/dL (8.5-10.1); Carbon Dioxide 27 mmol/L (21.0-32.0); Chloride 108 mmol/L (98-107); Creatinine,Serum 0.88 mg/dL (0.55-1.02); Estimated Glomerular Filt Rate 71 ml/min (>60); GFR (African American) 86 ML/MIN (>60); Glucose 76 mg/dL (74-106); Potassium 4.1 mmoL/L (3.5-5.1); Sodium 143 mmol/L (137-145)
== END ==
LOC: LAB 12:30 → RAD 13:33
PROVIDERS: Clinical Nurse Specialist Family Health; PCP Family Medicine; Visit Provider Anesthesiology
DX: Z01.818 Encounter for other preprocedural examination (principal); R05 Cough
CPT/HCPCS: 36415; 71046; 80048; 85025

== ENCOUNTER → 2019-06-01 09:09 | Outpatient (POV) | payer BC, OTHER, SELFPAY ==
[2019-06-01 09:18] VITALS: BP 109/74; PULSE 71; RESP 18; O2SAT 99; BMI 30.9
--- NOTE | 2019-06-01 09:48 | HMH.PAINSOAP ---
[facility] Pain Management SOAP Note Subjective:: Patient is a pleasant 39-year-old white female who presents today for follow-up. She is being treated for low back pain with lumbar radiculopathy symptoms. Patient had a spinal cord stimulator Jara that she did not feel was working any longer. As result, she did decide to have the stimulator explanted. She is following up today post explant. Patient says she is doing well, overall. She says she does have some incisional pain. She is asking when she can have her sutures removed. She does have pain a 6 out of 10 today. Patient says that she did expect this. She does say, however, she thinks she will sleep better now that the stimulator is removed. Review of Systems General: No recent weight changes, no fever, no sleep disturbances Respiratory: No cough, no shortness of air, no recurring pulmonary infections Cardiovascular/peripheral vascular: No chest pain, no palpitations, no edema, no shortness of breath Gastrointestinal: No new onset incontinence, normal bowel movements reported Genitourinary: No new onset incontinence Musculoskeletal: Low back pain Psychiatric: Normal mood/affect Neurological: [Denies weakness in extremities], [denies balance issues] Objective:: Physical exam General: Alert and oriented x3, no acute distress, pleasant and cooperative, [on room air] Lungs: Respirations even and unlabored, symmetrical chest expansion Eyes: PERRL Musculoskeletal: Flexion and extension of lumbar spine somewhat guarded secondary to pain, deep tendon reflexes normal, strength in upper and lower extremities [5/5], [abnormal gait noted] Neurological: Speech clear, 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 Her incision is well approximated, no drainage, no edema, no redness noted. Her sutures are intact. We will schedule her to follow-up in 2 weeks to have her sutures removed. Patient has been instructed to contact the clinic if she has any concerns before next appointment. Dr. Patel has reviewed this note and agrees with this plan of care. This note was dictated using voice recognition software and make contain errors or omissions. Her second [facility] History I have reviewed the patient's past medical history: Yes Medical History: Reports:: Atrial Fibrillation, Gastroesophageal Reflux Disease(GERD), Hyperlipidemia, Hypertension, Palpitations Denies:: Cancer, Diabetes Mellitus Type 1, Diabetes Mellitus Type 2, Internal Pacemaker, Lung Disease, MRSA, Seizures *Have you ever received a pneumonia vaccine?: Yes *Have you received a flu vaccine this season?: Yes Other Medical History: Reports: Arthritis, Hypothyroidism, Sinus Problems, Other. Denies: Blood Transfusion Reaction Laterality Cases: Right: Arthroscopy Shoulder, Bilateral: Carpal Tunnel Release, Tonsillectomy Other Surgeries: Yes: Tubal Ligation, Other. No: Pacemaker Amputation: No Fractures: No - *Social History Smoking Status: Current every day smoker Tobacco Type: cigarettes # Packs/Day (cigarettes): 1 Alcohol Intake: never Substance Use Type: denies use *Occupational Status:: other Housing: house Household Members: spouse *Travel in the last 8 weeks: None Family Hx:: Unable to obtain
== END ==
PROVIDERS: PCP Family Medicine; Visit Provider Clinical Nurse Specialist Family Health
DX: M51.16 Intervertebral disc disorders with radiculopathy, lumbar region (principal)
CPT/HCPCS: 99212

== ENCOUNTER → 2019-06-23 16:54 | Outpatient (CLI) | payer BC, OTHER, SELFPAY ==
[2019-06-23 17:26] LABS: Basophils % 0.5 % (0.1-2.0); Eosinophils # 0.2 K/mm3 (0.0-0.4); Eosinophils % 2.3 % (0.1-12.0); Hematocrit 46.6 % (37.0-47.0); Hemoglobin 15.7 g/dL (12.2-16.2); Lymphocytes # 1.9 K/mm3 (0.7-4.5); Lymphocytes % 21.7 % (10-50); Mean Corpuscular HGB Conc 33.8 g/dL (31.8-35.4); Mean Corpuscular Hemoglobin 32.9 pg (27.0-31.2); Mean Corpuscular Volume 97.5 fl (81-99); Monocytes # 0.3 K/mm3 (0.1-1.0); Monocytes % 3.8 % (1.7-9.3); Neutrophils # 6.2 K/mm3 (1.8-7.8); Neutrophils % 71.8 % (37.0-80.0); Platelet Count 183 K/mm3 (142-424); Red Blood Count 4.78 M/mm3 (4.20-5.40); Red Cell Distribution Width 12.7 % (11.5-17.5); White Blood Count 8.6 K/mm3 (4.8-10.8)
[2019-06-23 18:42] LABS: Chloride 105 mmol/L (98-107); Potassium 4.2 mmoL/L (3.5-5.1); Sodium 138 mmol/L (136-145)
[2019-06-23 18:44] LABS: Blood Urea Nitrogen 12 mg/dl (7-17); Estimated Glomerular Filt Rate 69 ml/min (>60); GFR (African American) 83 ML/MIN (>60)
[2019-06-23 18:45] LABS: Alanine Aminotransferase 11 U/L (12-78); Albumin Level 4.2 g/dl (3.5-5.0); Albumin/Globulin Ratio 1.5 (1.1-1.8); Alkaline Phosphatase 53 U/L (38-126); Anion Gap 13.2 mEq/L (5-15); Aspartate Amino Transferase 19 U/L (14-36); Bilirubin,Total 0.3 mg/dl (0.2-1.3); Calcium 9.4 mg/dl (8.4-10.2); Carbon Dioxide 24 mmol/L (22.0-30.0); Cholesterol 289 mg/dl (140-200); Globulin 2.8 g/dL (1.3-3.2); Glucose 83 mg/dl (74-100); Triglycerides 189 mg/dl (30-150); VLDL Cholesterol 38 mg/dL (0-40)
[2019-06-23 18:46] LABS: Chol/HDL Ratio 7.4 (1-3.5); HDL Cholesterol 39 mg/dl (40-60)
[2019-06-23 18:56] LABS: Direct LDL Cholesterol 209.72 mg/dL (100-129)
[2019-06-23 19:01] LABS: Free T4 (Free Thyroxine) 1.47 ng/dl (0.78-2.19)
[2019-06-23 19:20] LABS: Thyroid Stimulating Hormone 0.72 uIU/mL (0.465-4.68)
[2019-06-25 19:17] LABS: Hep A Ab, IgM Negative (Negative); Hepatitis B Core Antibody IgM Negative (Negative); Hepatitis B Surface Antigen Negative (Negative)
[2019-06-26 14:28] LABS: Hepatitis C Antibody <0.1 s/co ratio (0.0-0.9)
== END ==
PROVIDERS: Visit Provider Emergency Medicine
DX: R53.83 Other fatigue (principal); M54.5 Low back pain; M51.36 Other intervertebral disc degeneration, lumbar region; E78.5 Hyperlipidemia, unspecified; E55.9 Vitamin D deficiency, unspecified; E66.9 Obesity, unspecified; Z72.0 Tobacco use
CPT/HCPCS: 80053; 80061; 80074; 82652; 84439; 84443; 85025

== ENCOUNTER → 2019-07-17 08:54 | Outpatient (CLI) | payer BC, OTHER, SELFPAY ==
--- NOTE | 2019-07-17 08:54 | MM_ITS ---
PROCEDURE: MM DIG SCREENING MAMM BI W/CAD DIGITAL BREAST TOMOSYNTHESIS INCLUDED Patient Age:39Y CLINICAL INDICATION: screening xmg 39-year-old.. No new complaints. No hormones (previous mirana. Now tubal ligation) Family history moderate scattered fibroglandular elements throughout both breast but moderate to lower breast density. No significant change since 2019. Stable architecture. No dominant nor suspicious mass either breast but no suspicious calcifications in either breast COMPARISON: [facility] MM Dig screening mamm BI w/CAD from 07/12/2018 TECHNIQUE: Standard CC and MLO images were obtained. Additional left MLO view for nipple profile. R2 CAD reviewed. Bilateral digital breast tomosynthesis included. FINDINGS: moderate scattered fibroglandular elements throughout both breast. Right breast unremarkable. No new areas of concern. Follow-up in 1 year on right Left breast: Small area of nodularity inferior retroareolar region seen on both CC and the MLO projection along with and tomosynthesis (CC and MLO tomosynthesis image 19,) may reflect overlapping densities or ductal prominence, but is more evident on today's MLO and CC view, than on previous study. Suggest ultrasound left breast attention 6-630 o'clock retroareolar region. I would note that this area seems to dissipate on the nipple profile MLO view which speaks against a significant finding/nodule. Nonetheless since it is evident on tomosynthesis views I would suggest ultrasound and follow-up spot views IMPRESSION: Left breast: . Possible small new ovoid density inferior retroareolar region 6:30 position warrants ultrasound and spot views additional images. But these are not urgent and when the patient may return at her convenience. . This density seen seen in both projections and tomosynthesis today-. However since it does dissipate on today's additional left MLO nipple profile view, I doubt is of significance and it may very merely area of ductal prominence or overlapping features.. . Right breast: No areas of concern. Follow-up right mammogram 1 year With the BI-RAD Category: 0 Need Additional Imaging Evaluation FOLLOW-UP: IMM Immediate Follow-up Recommended Left breast ultrasound and spot views recommended. These are non urgent and patient may return at her convenience for this by far most likely benign feature (A letter has been sent to the patient regarding results of the study.) Dictated by: Nic Wells MD 07/20/2019 10:08 Electronically signed by Nic Wells MD in [place] 07/20/2019 10:08
== END ==
PROVIDERS: PCP Emergency Medicine; Visit Provider Nurse Practitioner Obstetrics & Gynecology
DX: Z12.31 Encounter for screening mammogram for malignant neoplasm of breast (principal)
CPT/HCPCS: 77063; 77067

== ENCOUNTER → 2019-08-01 14:27 | Outpatient (CLI) | payer BC, OTHER, SELFPAY ==
--- NOTE | 2019-08-01 14:28 | US_ITS ---
PROCEDURE: MM DIG MAMM DX UNILAT LT CAD Digital Breast Tomosynthesis Included CLINICAL INDICATION: abnormal xmg, follow-up abnormal screening exam COMPARISON: [facility] MM Dig screening mamm BI w/CAD from 07/12/2018 MM DIG SCREENING MAMM BI W/CAD from 07/17/2019 US BREAST LT COMPLETE from 08/01/2019 TECHNIQUE: Problem solving views performed along with left breast ultrasound FINDINGS: Previously noted nodular density in the inferior aspect of the left breast does not persist on spot compression views. Left breast ultrasound: At 12 o'clock there is a 5 mm complicated cyst. In the retroareolar region there is a 5 mm cyst and may be due to the previously noted mammographic abnormality. There is an additional 4 mm cyst in the retroareolar region as well. No suspicious nodules are evident. IMPRESSION: Probably benign findings. Recommend six-month mammographic and sonographic follow-up BI-RAD Category: 3 Probably Benign Finding Short Term Follow-up FOLLOW-UP: 6M 6Month Follow-up (A letter has been sent to the patient regarding results of the study.) Low Dictated by: John Yanez MD 08/08/2019 09:47 Electronically signed by John Yanez MD in [place] 08/08/2019 09:47
== END ==
PROVIDERS: PCP Emergency Medicine; Visit Provider Nurse Practitioner Obstetrics & Gynecology
DX: R92.8 Other abnormal and inconclusive findings on diagnostic imaging of breast (principal)
CPT/HCPCS: 76641; 77061; 77065; G0279

== ENCOUNTER → 2019-08-09 10:01 | Outpatient (CLI) | payer BC, OTHER, SELFPAY ==
--- NOTE | 2019-08-09 10:01 | US_ITS ---
PROCEDURE: US TRANSVAGINAL CLINICAL INDICATION: check position of IUD COMPARISON: No exams were available for comparison FINDINGS: UTERUS: 9cm x 5cmx 4cm with a combined endometrial thickness of 6.7mm LEFT OVARY: [id number] with a volume of 6ml. RIGHT OVARY: [id number] with a volume of 7.4ml. There is a 1.6 cm right ovarian cyst. There is an IUD present which appears to be in satisfactory position. No cul-de-sac fluid. IMPRESSION: IUD in place. Small right ovarian cyst Dictated by: John Yanez MD 08/09/2019 19:30 Electronically signed by John Yanez MD in [place] 08/09/2019 19:30
== END ==
PROVIDERS: PCP Emergency Medicine; Visit Provider Nurse Practitioner Obstetrics & Gynecology
DX: R10.2 Pelvic and perineal pain (principal)
CPT/HCPCS: 76830

== ENCOUNTER 2019-08-29 14:00 | Outpatient (RCR) | payer BC, OTHER, SELFPAY ==
--- NOTE | 2019-08-11 11:27 | HMH.PTOPEV ---
PT Outpatient Evaluation Rehab PT Outpatient Evaluation Start: 08/11/19 11:21 Freq: Status: Active Protocol: Document 08/11/19 11:21 JULISSA (Rec: 08/11/19 11:27 JULISSA [id number]) Electronically Signed By Rony Shelby, PT 08/11/19 11:21 Outpatient Therapy Subjective History Subjective History Pt reports h/o chronic LBP beginning in 2106. Pt reports insidious onset LBP which progressed to severe LBP and B LE s/s, and 'stimulator' implant. Pt reports recent stimulator removal ~2 months ago, 'it wasn't doing me any good'. Pt continues to report LBP w/B LE s/s to the feet. Chief Complaint Pain,Stiff,Paresthesia, Weakness Symptom Type Ache,Dull,Stabbing,Burning Symptoms Relieved By Rest/Positioning,Prescription Meds Symptoms Aggravated By Sitting,Standing,Twisting, Walking Prior Functional Limitations Standing,Sitting,Walking Current Functional Limitations Housework,Standing,Sitting, Walking Symptom Description Constant but Variable Level of pain today (0-10) 8 Pain scale - at its best (0-10) 7 Pain scale - at its worst (0-10) 9 Lumbopelvic Eval Posture Thoracic Spine Posture Standing Position Neutral Lumbar Spine Posture Standing Position Neutral Assistive device Assistive Devices None / NA Gait Observation General Gait Pattern Observation Antalgic Gait Palapation tenderness bilateral lumbar spinal tenderness Yes: 3/4 paraspinal tenderness Yes: 3/4 buttock tenderness Yes: 3/4 Lumbar/Sacral Palpation Findings Tenderness,Trigger Point, Muscle Guarding Accessory Movement L-spine Vertebrae Accessory Movements Central P/A [place] that Elicit Symptoms L2 bilateral L3 bilateral L4 bilateral L5 bilateral Range of Motion Lumbar Spine Active Flexion Range of 0-25 Motion (degrees) Lumbar Spine Active Extension Range of 0-15 Motion (degrees) Left Lumbar Spine Lateral Flexion Active 0-35 Range of Motion (degrees) Right Lumbar Spine Lateral Flexion 0-30 Active Range of Motion (degrees) Lumbar Spine ROM Limitations Soft Tissue Tightness,Pain Manual Muscle Test Bilateral Knee Extension Strength Grade 4 Good Knee Flexion Strength Grade 4 Good Hip Flexion Strength Grade 4- G
== END 2019-08-29 14:05 | disposition home or self-care (01) ==
LOC: PT 14:00
PROVIDERS: PCP Emergency Medicine; Visit Provider Emergency Medicine
DX: M54.9 Dorsalgia, unspecified (principal)
CPT/HCPCS: 97010; 97014; 97035; 97110; 97163; G0283

== ENCOUNTER → 2019-09-08 15:29 | Outpatient (CLI) | payer BC, OTHER, SELFPAY ==
--- NOTE | 2019-09-08 15:29 | MR_ITS ---
PROCEDURE: MR LUMBAR SPINE WO CON CLINICAL INDICATION: back pain Low back pain, bilateral leg pain numbness and tingling the COMPARISON: [employer]/O MRI-L-SPINE W/O from 08/26/2016 TECHNIQUE: Standard multiplanar multiecho sequences are performed without contrast. 3-D MIP and myelographic images are also rendered and reviewed FINDINGS: There is normal alignment. The spinal cord ends at the T12-L1 level. T12-L1: Unremarkable. L1-L2: Unremarkable. L2-L3: Unremarkable. L3-L4: Mild concentric bulging disc. There are type 1 endplate changes along the inferior endplate of L3. L4-5: Unremarkable. L5-S1: Type 1 endplate changes along the inferior endplate and inferior aspect of L5 with bulging disc and a small broad-based central disc protrusion which is slightly larger compared to the previous exam. This does not appear to be causing any neural displacement but is abutting the anterior medial aspect of the S1 nerve roots on both sides slightly more apparent on the right IMPRESSION: 1. L3-L4: Mild concentric bulging disc. There are type 1 endplate changes along the inferior endplate of L3. 2. L5-S1: Type 1 endplate changes along the inferior endplate and inferior aspect of L5 with bulging disc and a small broad-based central disc protrusion which is slightly larger compared to the previous exam. This does not appear to be causing any neural displacement but is abutting the anterior medial aspect of the S1 nerve roots on both sides slightly more apparent on the right Dictated by: John Yanez MD 09/09/2019 11:40 Electronically signed by John Yanez MD in [place] 09/09/2019 11:40
== END ==
PROVIDERS: PCP Emergency Medicine; Visit Provider Emergency Medicine
DX: M51.36 Other intervertebral disc degeneration, lumbar region (principal)
CPT/HCPCS: 72148; 76376

== ENCOUNTER → 2019-10-02 14:45 | Outpatient (CLI) | payer BC, OTHER, SELFPAY ==
[2019-10-02 16:50] LABS: Free T4 (Free Thyroxine) 1.38 ng/dl (0.78-2.19)
[2019-10-04 11:39] LABS: Thyroid Peroxidase Antibodies <9 IU/mL (0-34)
[2019-10-05 07:29] LABS: Thyroid Stimulating Immunoglob <0.10 IU/L (0.00-0.55)
== END ==
PROVIDERS: Visit Provider Otolaryngology
DX: E04.1 Nontoxic single thyroid nodule (principal)
CPT/HCPCS: 36415; 84439; 84443; 84445; 86376

== ENCOUNTER → 2019-10-04 07:59 | Outpatient (CLI) | payer BC, OTHER, SELFPAY ==
--- NOTE | 2019-10-04 07:59 | US_ITS ---
PROCEDURE: US THYROID CLINICAL INDICATION: thyromegly Difficulty swallowing COMPARISON: No exams were available for comparison FINDINGS: Right lobe: 4.6 x 1.5 x 2 cm. 8 x 5 mm cyst upper pole posteriorly. 7 mm isoechoic nodule posteriorly mid aspect unchanged Left lobe: 4.8 x 1.8 x 1.8 cm with homogeneous echogenicity Isthmus: 4 mm in thickness Additional findings: IMPRESSION: Stable right-sided nodules. Mild thyromegaly Dictated by: John Yanez MD 10/04/2019 15:35 Electronically signed by John Yanez MD in [place] 10/04/2019 15:35
--- NOTE | 2019-10-04 07:59 | FL_ITS ---
PROCEDURE: FL BARIUM SWALLOW CLINICAL INDICATION: diff swallowing COMPARISON: US THYROID from 10/04/2019 TECHNIQUE: In the upright position the patient was observed to swallow barium in both the AP and lateral view. The cervical esophagus was examined under fluoroscopy with images obtained. The patient was then placed prone in the right anterior oblique position and was observed to swallow barium with Valsalva technique . FLUOROSCOPY TIME: 57 seconds FINDINGS: There was no evidence of aspiration. There was normal peristalsis. No filling defects or mucosal abnormalities. No masses or strictures. No hiatal hernia. No esophageal deviation IMPRESSION: Negative barium swallow. Dictated by: John Yanez MD 10/04/2019 14:45 Electronically signed by John Yanez MD in [place] 10/04/2019 14:45
== END ==
PROVIDERS: PCP Emergency Medicine; Visit Provider Otolaryngology
DX: R13.10 Dysphagia, unspecified (principal); E04.1 Nontoxic single thyroid nodule
CPT/HCPCS: 74220; 76536

== ENCOUNTER → 2019-11-20 13:51 | Outpatient (CLI) | payer BC, OTHER, SELFPAY ==
--- NOTE | 2019-11-20 13:54 | XR_ITS ---
PROCEDURE: XR HAND LT MIN 3V CLINICAL INDICATION: hand pain COMPARISON: No exams were available for comparison FINDINGS: No fracture or dislocation. No lytic or blastic change. There is normal mineralization. The joint spaces are well-preserved. No significant degenerative/arthritic changes. No erosive changes evident. Other findings:None. IMPRESSION: No acute findings. Dictated by: John Yanez MD 11/20/2019 14:44 John Yanez MD in [place] 11/20/2019 14:44
--- NOTE | 2019-11-20 13:54 | XR_ITS ---
PROCEDURE: XR HAND RT MIN 3V CLINICAL INDICATION: hand pain COMPARISON: No exams were available for comparison FINDINGS: No fracture or dislocation. No lytic or blastic change. There is normal mineralization. The joint spaces are well-preserved. No significant degenerative/arthritic changes. No erosive changes evident. Other findings:None. IMPRESSION: No acute findings. Dictated by: John Yanez MD 11/20/2019 14:44 John Yanez MD in [place] 11/20/2019 14:44
== END ==
PROVIDERS: PCP Emergency Medicine; Visit Provider Orthopaedic Surgery
DX: M79.641 Pain in right hand (principal); M79.642 Pain in left hand
CPT/HCPCS: 73130

== ENCOUNTER → 2019-11-21 13:39 | Outpatient (CLI) | payer BC, OTHER, SELFPAY ==
[2019-11-21 14:29] LABS: Basophils % 0.5 % (0.1-2.0); Eosinophils # 0.2 K/mm3 (0.0-0.4); Eosinophils % 2.6 % (0.1-12.0); Hematocrit 45.3 % (37.0-47.0); Hemoglobin 16.1 g/dL (12.2-16.2); Lymphocytes # 2.1 K/mm3 (0.7-4.5); Lymphocytes % 24.3 % (10-50); Mean Corpuscular HGB Conc 35.4 g/dL (31.8-35.4); Mean Corpuscular Hemoglobin 33.9 pg (27.0-31.2); Mean Corpuscular Volume 95.5 fl (81-99); Mean Platelet Volume 9.2 fl (7.4-10.4); Monocytes # 0.3 K/mm3 (0.1-1.0); Monocytes % 3.4 % (1.7-9.3); Neutrophils # 5.9 K/mm3 (1.8-7.8); Neutrophils % 69.3 % (37.0-80.0); Platelet Count 164 K/mm3 (142-424); Red Blood Count 4.74 M/mm3 (4.20-5.40); Red Cell Distribution Width 12.6 % (11.5-17.5); White Blood Count 8.5 K/mm3 (4.8-10.8)
[2019-11-21 14:34] LABS: Alanine Aminotransferase 16 U/L (12-78); Albumin/Globulin Ratio 1.4 (1.1-1.8); Alkaline Phosphatase 52 U/L (38-126); Anion Gap 10.9 mEq/L (5-15); Aspartate Amino Transferase 25 U/L (14-36); Bilirubin,Total 0.3 mg/dl (0.2-1.3); Blood Urea Nitrogen 8 mg/dl (7-17); Calcium 9.5 mg/dl (8.4-10.2); Carbon Dioxide 28 mmol/L (22.0-30.0); Chloride 104 mmol/L (98-107); Estimated Glomerular Filt Rate 79 ml/min (>60); GFR (African American) 96 ML/MIN (>60); Globulin 2.8 g/dL (1.3-3.2); Glucose 105 mg/dl (74-100); Potassium 3.9 mmoL/L (3.5-5.1); Sodium 139 mmol/L (136-145); Total Protein,Serum 6.8 g/dl (6.3-8.2); Uric Acid 3.1 mg/dl (2.5-6.2)
[2019-11-21 14:40] LABS: C-Reactive Protein 4.2 mg/L (0-4)
[2019-11-21 15:15] LABS: Erythrocyte Sedimentation Rate 16 mm/hr (0-20)
[2019-11-23 06:20] LABS: RA Latex Turbid. <10.0 IU/mL (0.0-13.9)
[2019-11-23 14:43] LABS: Anti-Centromere B Antibodies <0.2 AI (0.0-0.9); Anti-Jo-1 <0.2 AI (0.0-0.9); Anti-Smith Antibody <0.2 AI (0.0-0.9); Antichromatin Antibodies <0.2 AI (0.0-0.9); Antiscleroderma-70 Antibodies <0.2 AI (0.0-0.9); RNP Antibodies <0.2 AI (0.0-0.9); Sjogren's Anti-SS-A 1.8 AI (0.0-0.9); Sjogren's Anti-SS-B <0.2 AI (0.0-0.9)
[2019-11-23 15:24] LABS: Anti-DNA (DS) Ab Qn 3 IU/mL (0-9)
[2019-11-23 17:01] LABS: Antinuclear Antibodies, IFA Negative (.)
[2019-11-24 02:48] LABS: Anti-Cyclic Citrullinated Pept 26 units (0-19)
== END ==
PROVIDERS: Visit Provider Orthopaedic Surgery
DX: G56.00 Carpal tunnel syndrome, unspecified upper limb (principal); M19.90 Unspecified osteoarthritis, unspecified site; E01.0 Iodine-deficiency related diffuse (endemic) goiter; E78.5 Hyperlipidemia, unspecified; I10 Essential (primary) hypertension
CPT/HCPCS: 36415; 80053; 84550; 85025; 85651; 86038; 86140; 86200; 86225; 86235; 86431

== ENCOUNTER → 2020-01-10 10:19 | Outpatient (CLI) | payer BC, OTHER, SELFPAY ==
[2020-01-10 11:43] LABS: Alanine Aminotransferase 14 U/L (12-78); Albumin Level 3.7 g/dl (3.5-5.0); Alkaline Phosphatase 43 U/L (38-126); Aspartate Amino Transferase 21 U/L (14-36); Bilirubin,Direct 0.1 mg/dl (0.0-0.4); Bilirubin,Indirect 0.4 mg/dL (0.0-0.9); Bilirubin,Total 0.5 mg/dl (0.2-1.3); Bilirubin,Unconjugated 0.4 mg/dL (0.0-1.1); Cholesterol 117 mg/dl (140-200); HDL Cholesterol 34 mg/dl (40-60); Total Protein,Serum 6.2 g/dl (6.3-8.2); Triglycerides 101 mg/dl (30-150); VLDL Cholesterol 20 mg/dL (0-40)
[2020-01-10 11:44] LABS: Chol/HDL Ratio 3.4 (1-3.5)
[2020-01-10 11:54] LABS: Direct LDL Cholesterol 62.89 mg/dL (100-129)
== END ==
PROVIDERS: Visit Provider Urology
DX: E78.49 Other hyperlipidemia (principal); I10 Essential (primary) hypertension; R00.2 Palpitations; Z72.0 Tobacco use
CPT/HCPCS: 36415; 80061; 80076

== ENCOUNTER 2020-02-09 17:26 | Emergency (ER) | payer BC, OTHER, SELFPAY ==
[2020-02-09 17:38] VITALS: BMI 28.5
--- NOTE | 2020-02-09 17:38 | CT_ITS ---
PROCEDURE: CT HEAD/BRAIN WO CON CLINICAL INDICATION: headache After severe headache COMPARISON: CT CT HEAD/BRAIN WO CON from 05/15/2019 TECHNIQUE: Axial images obtained. All CT scans at the facility use one or more dose reduction, viz: automated exposure control, ma/kV adjustment per patient size (including targeted exams where dose is matched to indication, i.e. head), or iterative reconstruction technique. FINDINGS: No midline shift, mass effect, intracranial hemorrhage, hydrocephalus, or extra-axial fluid collection is evident. The calvarium has an unremarkable appearance. No mastoid effusion. No sinus air-fluid level. There is a small subcutaneous nodule in the scalp in the right frontal area possibly due to a sebaceous measuring 7 mm. Please correlate with physical exam. IMPRESSION: No acute intracranial finding. Please see above for detail Dictated by: John Yanez MD 02/10/2020 08:50 John Yanez MD in [place] 02/10/2020 08:50
--- NOTE | 2020-02-09 17:59 | HMH.EDGENADL ---
ED Disposition Clinical Impression: Spinal headache Disposition: Home, Self-Care Condition on Discharge: Good Instructions: DI for Post-Spinal Puncture Headache Additional Instructions: Follow-up with your primary care provider if symptoms recur. Referrals: Jose Villarreal MD [Primary Care Provider] - - Critical Care Critical Care Time: No Attestation: On 02/09/20, the high probability of a clinically significant, sudden or life threatening deterioration of the following system(s) required my full and direct attention, intervention and personal management. The time I documented below is in addition to time spent performing reported procedures but includes the following listed in this critical care notation. Medical Decision Making - Sae Inquiry Pt receiving controlled substance: No Vital Signs: 02/09/20 18:59 Pulse Rate [Left] 72 Blood Pressure [Left Arm] 131/77 Blood Pressure Mean [Left Arm] 95 Blood Pressure Source [Left Arm] Automatic Cuff Blood Pressure Position [Left Arm] Sitting 02 Sat by Pulse Oximetry 98 - Lab Data Lab Results 02/09/20 18:10: WBC 9.1, RBC 4.84, Hgb 16.0, Hct 46.4, MCV 95.9, MCH 33.1 H, MCHC 34.5, RDW 13.4, Plt Count 162, MPV 9.3, Neut % (Auto) 63.2, Lymph % (Auto) 28.8, [place] % (Auto) 3.9, Eos % (Auto) 3.4, Baso % (Auto) 0.7, Neut # (Auto) 5.8, Lymph # (Auto) 2.6, [place] # (Auto) 0.4, Eos # (Auto) 0.3, Baso # (Auto) 0.1 02/09/20 18:10: Sodium 140, Potassium 3.9, Chloride 104, Carbon Dioxide 29, Anion Gap 10.9, BUN 12, Creatinine 1.00, Estimated Creat Clear 87, Estimated GFR 61, Est GFR ( Amer) 74, Glucose 89, Calcium 9.4, Total Bilirubin 0.4, AST 28, ALT 17, Alkaline Phosphatase 52, Total Protein 7.1, Albumin 4.3, Globulin 2.8, Albumin/Globulin Ratio 1.5 Result diagrams: 02/09/20 18:10 02/09/20 18:10 Orders (Tests/Meds): ED MEDICATIONS Generic Name Dose Route Start Last Admin Trade Name Freq PRN Reason Stop Dose Admin Sodium Chloride 1,000 mls @ 999 mls/hr 02/09/20 17:45 02/09/20 18:10 Sod Chlor 0.9% 1000ml Bag IV 02/09/20 18:45 999 mls/hr .Q1H1M LOI Administration Discontinued Medications Generic Name Dose Route Start Last Admin Trade Name Krysta PRN Reason Stop Dose Admin Morphine Sulfate 4 mg 02/09/20 18:34 02/09/20 18:40 Morphine 4mg/Ml Syringe IV 02/09/20 18:35 4 mg ONCE ONE Administration Ondansetron HCl 4 mg 02/09/20 18:34 02/09/20 18:40 Ondansetron 4mg/2ml Vial IV 02/09/20 18:35 4 mg ONCE ONE Administration ORDERS Category Date Time Status CT head/brain wo con Stat Cat Scan 02/09/20 17:38 Taken - CT Data CT Scan: Head Time Received: 18:34 ([facility] fax) ED CT Reviewed: Yes: I have viewed the radiologist's interpretation Findings Narrative: No acute intracranial abnormality - Physician Consults Physician Consulted: Zelalem Gonzalez - anesthesia Time: 18:28 Reason -: Pt condition Comment/Response: He will be able to do blood patch but is currently in surgery for the next hour. Patient states she is willing to wait Medical Decision Narrative: Nurse reports patient symptoms relieved after blood patch. General Adult HPI - General Chief complaint: Headache Stated complaint: Migraine since 02/08/20 1600 Time Seen by Provider: 02/09/20 17:59 - History of Present Illness HPI narrative: Patient complains of a migraine headache since about 4:00 yesterday. She says that she had a pain pump trial done yesterday at [facility] where they did a spinal puncture and injected anesthetic. She says because of that she laid around most of the day, but then when she got up at around 4 she had a severe headache whenever she would get upright and it would go away when she lay down. Today the headache is more persistent and persists even when she is laying down but is still worse when she is upright. Nausea, but no vomiting. No fever. No numbness or weakness of the arms or legs. She does have some
--- NOTE | 2020-02-09 18:07 | PC.NURSE ---
Calling communication coordinator anesthesia per MD request.
--- NOTE | 2020-02-09 18:24 | PC.NURSE ---
Gus Gonzalez returned call.
[2020-02-09 18:27] LABS: Basophils # 0.1 K/mm3 (0-0.2); Basophils % 0.7 % (0.1-2.0); Eosinophils # 0.3 K/mm3 (0.0-0.4); Eosinophils % 3.4 % (0.1-12.0); Hematocrit 46.4 % (37.0-47.0); Lymphocytes # 2.6 K/mm3 (0.7-4.5); Lymphocytes % 28.8 % (10-50); Mean Corpuscular HGB Conc 34.5 g/dL (31.8-35.4); Mean Corpuscular Hemoglobin 33.1 pg (27.0-31.2); Mean Corpuscular Volume 95.9 fl (81-99); Mean Platelet Volume 9.3 fl (7.4-10.4); Monocytes # 0.4 K/mm3 (0.1-1.0); Monocytes % 3.9 % (1.7-9.3); Neutrophils # 5.8 K/mm3 (1.8-7.8); Neutrophils % 63.2 % (37.0-80.0); Platelet Count 162 K/mm3 (142-424); Red Blood Count 4.84 M/mm3 (4.20-5.40); Red Cell Distribution Width 13.4 % (11.5-17.5); White Blood Count 9.1 K/mm3 (4.8-10.8)
[2020-02-09 18:32] LABS: Chloride 104 mmol/L (98-107); Potassium 3.9 mmoL/L (3.5-5.1); Sodium 140 mmol/L (136-145)
--- NOTE | 2020-02-09 18:32 | PC.NURSE ---
Gus Gonzalez is in surgery and should be done within an hour per Dr Desir and will be down after that.
[2020-02-09 18:34] LABS: Blood Urea Nitrogen 12 mg/dl (7-17); Creatinine Clearance Estimated 87 mL/min (50-200); Estimated Glomerular Filt Rate 61 ml/min (>60); GFR (African American) 74 ML/MIN (>60)
[2020-02-09 18:35] LABS: Alanine Aminotransferase 17 U/L (12-78); Albumin Level 4.3 g/dl (3.5-5.0); Albumin/Globulin Ratio 1.5 (1.1-1.8); Alkaline Phosphatase 52 U/L (38-126); Anion Gap 10.9 mEq/L (5-15); Aspartate Amino Transferase 28 U/L (14-36); Bilirubin,Total 0.4 mg/dl (0.2-1.3); Calcium 9.4 mg/dl (8.4-10.2); Carbon Dioxide 29 mmol/L (22.0-30.0); Globulin 2.8 g/dL (1.3-3.2); Glucose 89 mg/dl (74-100); Total Protein,Serum 7.1 g/dl (6.3-8.2)
--- NOTE | 2020-02-09 18:49 | PC.NURSE ---
pt updated on plan of care
[2020-02-09 18:59] VITALS: BP 131/77; PULSE 72; O2SAT 98
--- NOTE | 2020-02-09 20:19 | HMH.PROC ---
[facility] Procedure Note Procedure Note:: Consulted in ER for pt with potential post dural puncture headache. Pt is post op day 1 from a pain pump trial injection performed at [facility]. Pt presents with worsening headache over the past 24 hours that did get better when laying flat but pt states that it persists at all times now. Pt states that she also has photophobia and tinnitus. Consent was obtained for Epidural Blood Patch. Risks/benefits of procedure were discussed and agreed to by pt. Sitting position, sterile prep and drape with betadine. 3 cc of 1% lidocaine skin wheel at L3/4, 18 G Tuohy midline x1 around L3/4, same level as injection was performed yesterday. CHARLES with saline at 6 cm. Once CHARLES obtained, 20 cc autologous blood drawn by ER staff. Blood was then injected into epidural space. Tuohy needle then d/c'd. Pt tolerated procedure well. Pt educated on rest/straining, fluid intake, over the counter remedies and caffeine intake. Pt also encouraged to follow up with pain management doctor as soon as possible.
[2020-02-09 20:35] VITALS: BP 123/79; PULSE 85; RESP 16; TEMP 36.8; O2SAT 98
== END 2020-02-09 20:42 | disposition home or self-care (01) ==
PROVIDERS: Emergency Provider Emergency Medicine; PCP Emergency Medicine
DX: G44.40 Drug-induced headache, not elsewhere classified, not intractable (principal); T88.59XA Other complications of anesthesia, initial encounter; G89.29 Other chronic pain; M54.9 Dorsalgia, unspecified; I10 Essential (primary) hypertension; E78.5 Hyperlipidemia, unspecified; K21.9 Gastro-esophageal reflux disease without esophagitis; I48.0 Paroxysmal atrial fibrillation; E03.9 Hypothyroidism, unspecified; F41.8 Other specified anxiety disorders; F17.210 Nicotine dependence, cigarettes, uncomplicated; Z88.1 Allergy status to other antibiotic agents; Z79.899 Other long term (current) drug therapy
CPT/HCPCS: 70450; 80053; 85025; 96365; 96375; 99281; J2405

== ENCOUNTER → 2020-03-18 06:57 | Outpatient (CLI) | payer BC, OTHER, SELFPAY ==
[2020-03-18 07:10] LABS: Basophils # 0.1 K/mm3 (0-0.2); Basophils % 0.7 % (0.1-2.0); Eosinophils # 0.2 K/mm3 (0.0-0.4); Eosinophils % 2.1 % (0.1-12.0); Hemoglobin 15.9 g/dL (12.2-16.2); Lymphocytes # 2.8 K/mm3 (0.7-4.5); Mean Corpuscular HGB Conc 34.6 g/dL (31.8-35.4); Mean Corpuscular Hemoglobin 34.1 pg (27.0-31.2); Mean Corpuscular Volume 98.5 fl (81-99); Mean Platelet Volume 8.7 fl (7.4-10.4); Monocytes # 0.6 K/mm3 (0.1-1.0); Neutrophils # 6.4 K/mm3 (1.8-7.8); Neutrophils % 63.3 % (37.0-80.0); Platelet Count 176 K/mm3 (142-424); Red Blood Count 4.67 M/mm3 (4.20-5.40); White Blood Count 10.2 K/mm3 (4.8-10.8)
--- NOTE | 2020-03-18 07:16 | ECG_ITS ---
APPROVED REPORT Exam: Resting ECG HR:76 bpm ECG Measurements Heart Rate 76 AXES AZ 140 P 34 QRSd 82 QRS 1 QT 382 T 19 QTc 429 Conclusion Normal sinus rhythm Normal ECG Electronically signed by : Darius Mahajan, 03/18/2020 19:09:07
[2020-03-18 08:12] LABS: Chloride 103 mmol/L (98-107)
[2020-03-18 08:13] LABS: Potassium 3.9 mmoL/L (3.5-5.1); Sodium 139 mmol/L (136-145)
[2020-03-18 08:15] LABS: Alanine Aminotransferase 20 U/L (12-78); Albumin Level 4.2 g/dl (3.5-5.0); Alkaline Phosphatase 53 U/L (38-126); Anion Gap 9.9 mEq/L (5-15); Aspartate Amino Transferase 21 U/L (14-36); Bilirubin,Total 0.4 mg/dl (0.2-1.3); Blood Urea Nitrogen 10 mg/dl (7-17); Carbon Dioxide 30 mmol/L (22.0-30.0); Estimated Glomerular Filt Rate 69 ml/min (>60); GFR (African American) 83 ML/MIN (>60)
[2020-03-18 08:16] LABS: Albumin/Globulin Ratio 1.5 (1.1-1.8); Calcium 9.4 mg/dl (8.4-10.2); Globulin 2.8 g/dL (1.3-3.2); Glucose 88 mg/dl (74-100)
== END ==
PROVIDERS: Visit Provider Emergency Medicine
DX: Z29.9 Encounter for prophylactic measures, unspecified (principal)
CPT/HCPCS: 36415; 80053; 85025; 93005

== ENCOUNTER 2020-04-20 21:05 | Emergency (ER) | payer BC, OTHER, SELFPAY ==
[2020-04-20 20:29] VITALS: BP 158/87; PULSE 70; RESP 16; TEMP 36.7; O2SAT 99; BMI 28.5
--- NOTE | 2020-04-20 20:38 | PC.NURSE ---
overheard patient yelling and raising her voice stating we can send her to [facility] via transfer. informed patient that the md could talk to her and explain to her why that doesn't exactly work in that manner, that she would either have to be medically necessary to transfer.
--- NOTE | 2020-04-20 20:49 | PC.NURSE ---
called for records from [facility]. spoke with warehouse man. medical info release faxed to ed fax number per her request
--- NOTE | 2020-04-20 21:05 | PC.NURSE ---
received records from [facility] via fax
--- NOTE | 2020-04-20 21:17 | PC.NURSE ---
refused ct scan
[2020-04-20 21:26] LABS: Basophils # 0.1 K/mm3 (0-0.2); Basophils % 0.6 % (0.1-2.0); Eosinophils # 0.1 K/mm3 (0.0-0.4); Eosinophils % 1.1 % (0.1-12.0); Hemoglobin 15.8 g/dL (12.2-16.2); Lymphocytes # 1.8 K/mm3 (0.7-4.5); Lymphocytes % 17.5 % (10-50); Mean Corpuscular HGB Conc 33.7 g/dL (31.8-35.4); Mean Corpuscular Hemoglobin 33.1 pg (27.0-31.2); Mean Corpuscular Volume 98.2 fl (81-99); Mean Platelet Volume 9.4 fl (7.4-10.4); Monocytes # 0.5 K/mm3 (0.1-1.0); Monocytes % 4.7 % (1.7-9.3); Neutrophils # 7.7 K/mm3 (1.8-7.8); Neutrophils % 76.2 % (37.0-80.0); Platelet Count 152 K/mm3 (142-424); Red Blood Count 4.79 M/mm3 (4.20-5.40); Red Cell Distribution Width 13.4 % (11.5-17.5); White Blood Count 10.1 K/mm3 (4.8-10.8)
[2020-04-20 21:29] LABS: Chloride 104 mmol/L (98-107); Sodium 140 mmol/L (136-145)
[2020-04-20 21:30] LABS: Potassium 3.6 mmoL/L (3.5-5.1)
[2020-04-20 21:32] LABS: Alanine Aminotransferase 16 U/L (12-78); Alkaline Phosphatase 64 U/L (38-126); Aspartate Amino Transferase 18 U/L (14-36); Bilirubin,Total 0.5 mg/dl (0.2-1.3); Blood Urea Nitrogen 6 mg/dl (7-17); Creatinine Clearance Estimated 109 mL/min (50-200); Estimated Glomerular Filt Rate 79 ml/min (>60); GFR (African American) 95 ML/MIN (>60)
[2020-04-20 21:33] LABS: Albumin Level 4.2 g/dl (3.5-5.0); Albumin/Globulin Ratio 1.4 (1.1-1.8); Anion Gap 11.6 mEq/L (5-15); Calcium 9.4 mg/dl (8.4-10.2); Carbon Dioxide 28 mmol/L (22.0-30.0); Globulin 3.1 g/dL (1.3-3.2); Glucose 113 mg/dl (74-100); Total Protein,Serum 7.3 g/dl (6.3-8.2)
[2020-04-20 21:38] LABS: C-Reactive Protein 3.7 mg/L (0-4)
[2020-04-20 21:50] LABS: Erythrocyte Sedimentation Rate 22 mm/hr (0-20)
[2020-04-20 21:52] LABS: Procalcitonin 0.045 ng/mL (0.0-2.0)
--- NOTE | 2020-04-20 22:12 | HMH.EDHA ---
ED Disposition Clinical Impression: Headache Qualifiers: Headache type: unspecified Headache chronicity pattern: acute headache Intractability: not intractable Qualified Code(s): R51.9 - Headache, unspecified Disposition: Home, Self-Care Condition on Discharge: Good Instructions: DI for Headache Additional Instructions: see pcp for follow up and pain Referrals: Jose Villarreal MD [Primary Care Provider] - - Critical Care Critical Care Time: No Attestation: On 04/20/20, the high probability of a clinically significant, sudden or life threatening deterioration of the following system(s) required my full and direct attention, intervention and personal management. The time I documented below is in addition to time spent performing reported procedures but includes the following listed in this critical care notation. Medical Decision Making - Medical Records Medical records reviewed: Yes: I reviewed the patient's medical records. - Sae Inquiry Pt receiving controlled substance: No Vital Signs: 04/20/20 20:29 Temperature 98.1 F Temperature Source Oral Pulse Rate [Right Brachial] 70 Respiratory Rate 16 Blood Pressure [Right Arm] 158/87 H Blood Pressure Mean [Right Arm] 110 Blood Pressure Source [Right Arm] Automatic Cuff Blood Pressure Position [Right Arm] Sitting 02 Sat by Pulse Oximetry 99 Oxygen Delivery Method Room Air - Lab Data Lab results reviewed: Yes: I reviewed the patient's lab results. Lab Results 04/20/20 21:13: WBC 10.1, RBC 4.79, Hgb 15.8, Hct 47.0, MCV 98.2, MCH 33.1 H, MCHC 33.7, RDW 13.4, Plt Count 152, MPV 9.4, Neut % (Auto) 76.2, Lymph % (Auto) 17.5, [place] % (Auto) 4.7, Eos % (Auto) 1.1, Baso % (Auto) 0.6, Neut # (Auto) 7.7, Lymph # (Auto) 1.8, [place] # (Auto) 0.5, Eos # (Auto) 0.1, Baso # (Auto) 0.1, ESR 22 H 04/20/20 21:13: Sodium 140, Potassium 3.6, Chloride 104, Carbon Dioxide 28, Anion Gap 11.6, BUN 6 L, Creatinine 0.80, Estimated Creat Clear 109, Estimated GFR 79, Est GFR ( Amer) 95, Glucose 113 H, Calcium 9.4, Total Bilirubin 0.5, AST 18, ALT 16, Alkaline Phosphatase 64, C-Reactive Protein 3.7, Total Protein 7.3, Albumin 4.2, Globulin 3.1, Albumin/Globulin Ratio 1.4, Procalcitonin 0.045 Result diagrams: 04/20/20 21:13 04/20/20 21:13 Orders (Tests/Meds): ED MEDICATIONS Generic Name Dose Route Start Last Admin Trade Name Freq PRN Reason Stop Dose Admin Sodium Chloride 1,000 mls @ 999 mls/hr 04/20/20 20:45 04/20/20 20:39 Sod Chlor 0.9% 1000ml Bag IV 04/20/20 21:45 999 mls/hr .Q1H1M LOI Administration Discontinued Medications Generic Name Dose Route Start Last Admin Trade Name Freq PRN Reason Stop Dose Admin Diphenhydramine HCl 25 mg 04/20/20 20:35 04/20/20 20:37 Diphenhydramine 50mg/Ml Vial IV 04/20/20 20:36 25 mg ONCE ONE Administration Ketorolac Tromethamine 30 mg 04/20/20 20:35 04/20/20 20:37 Ketorolac 30mg/Ml Vial IV 04/20/20 20:36 30 mg ONCE ONE Administration Methylprednisolone Sodium Succinate 125 mg 04/20/20 20:35 04/20/20 20:37 Methylprednisolone Sod Succ 125mg Vial IV 04/20/20 20:36 125 mg ONCE ONE Administration ORDERS Category Date Time Status CT head/brain wo con Stat Cat Scan 04/20/20 21:00 Ordered - Reevaluation(s) Time: 22:32 Reevaluation #1: better Medical Decision Narrative: will need to call pain on wednesday Headache HPI - General Chief Complaint: Headache Stated Complaint: headache Time Seen by Provider: 04/20/20 21:10 Mode of Arrival: EMS Source of Information: Patient, EMS, Medical Record Limitations: No Limitations Description of Symptoms (Recalled from ER Triage Doc. by RN): pt describes acute onset of cummings that came on while laying in bed about 45 mins ago. some nausea. - History of Present Illness HPI Narrative: pain pump placed in 04/02/20 and blood patch 2 days ago -- after vomiting tonight with cummings - similar to prev - denied ct - head MD Complaint: h
--- NOTE | 2020-04-20 22:25 | PC.NURSE ---
[facility].
[2020-04-20 23:26] VITALS: BP 143/75; PULSE 62; RESP 16; TEMP 36.8; O2SAT 98
== END 2020-04-20 23:28 | disposition home or self-care (01) ==
PROVIDERS: Emergency Provider Emergency Medicine; PCP Emergency Medicine
DX: R51.9 Headache, unspecified (principal); I10 Essential (primary) hypertension; E78.5 Hyperlipidemia, unspecified; K21.9 Gastro-esophageal reflux disease without esophagitis; F41.8 Other specified anxiety disorders; F17.210 Nicotine dependence, cigarettes, uncomplicated; Z79.899 Other long term (current) drug therapy
CPT/HCPCS: 80053; 84145; 85025; 85651; 86140; 96365; 96372; 96375; 99283

== ENCOUNTER 2020-04-23 18:02 | Emergency (ER) | payer BC, OTHER, SELFPAY ==
[2020-04-23 18:24] VITALS: BP 136/72; PULSE 74; RESP 16; TEMP 36.9; O2SAT 98
--- NOTE | 2020-04-23 18:33 | HMH.EDHA ---
ED Disposition Clinical Impression: Migraine Qualifiers: Migraine type: without aura Status migrainosus presence: without status migrainosus Intractability: not intractable Qualified Code(s): G43.009 - Migraine without aura, not intractable, without status migrainosus Disposition: Home, Self-Care Condition on Discharge: Good Instructions: Migraine -- Adult Prescriptions: Promethazine HCl [Phenergan 25mg tab] 25 mg PO Q8 PRN #10 tab PRN Reason: Nausea And Vomiting Transmission Status: Pending to [facility] #[id number] Referrals: Jose Villarreal MD [Primary Care Provider] - - Critical Care Critical Care Time: No Attestation: On 04/23/20, the high probability of a clinically significant, sudden or life threatening deterioration of the following system(s) required my full and direct attention, intervention and personal management. The time I documented below is in addition to time spent performing reported procedures but includes the following listed in this critical care notation. Medical Decision Making - Medical Records Medical records reviewed: Yes: I reviewed the patient's medical records. - Sae Inquiry Pt receiving controlled substance: No Vital Signs: 04/23/20 18:24 04/23/20 18:57 Temperature 98.4 F Temperature Source Oral Pulse Rate [Right Radial] 74 70 Respiratory Rate 16 20 Blood Pressure [Right Arm] 136/72 150/95 H Blood Pressure Mean [Right Arm] 93 113 Blood Pressure Source [Right Arm] Automatic Cuff Blood Pressure Position [Right Arm] Supine 02 Sat by Pulse Oximetry 98 96 Oxygen Delivery Method Room Air - Lab Data Lab Results 04/23/20 19:05: WBC 9.9, RBC 5.01, Hgb 16.9 H, Hct 49.7 H, MCV 99.2 H, MCH 33.8 H, MCHC 34.0, RDW 13.6, Plt Count 156, MPV 8.9, Neut % (Auto) 70.1, Lymph % (Auto) 22.7, [place] % (Auto) 4.8, Eos % (Auto) 1.5, Baso % (Auto) 0.9, Neut # (Auto) 6.9, Lymph # (Auto) 2.2, [place] # (Auto) 0.5, Eos # (Auto) 0.2, Baso # (Auto) 0.1 04/23/20 19:05: Sodium 138, Potassium 3.8, Chloride 100, Carbon Dioxide 30, Anion Gap 11.8, BUN 14 D, Creatinine 0.90, Estimated Creat Clear 96, Estimated GFR 69, Est GFR ( Amer) 83, Glucose 103 H, Calcium 9.7, Total Bilirubin 0.8, AST 30 D, ALT 14, Alkaline Phosphatase 60, Total Protein 7.9, Albumin 4.4, Globulin 3.5 H, Albumin/Globulin Ratio 1.3 Result diagrams: 04/23/20 19:05 04/23/20 19:05 Orders (Tests/Meds): ED MEDICATIONS Generic Name Dose Route Start Last Admin Trade Name Freq PRN Reason Stop Dose Admin Sodium Chloride 1,000 mls @ 999 mls/hr 04/23/20 18:30 04/23/20 18:54 Sod Chlor 0.9% 1000ml Bag IV 04/23/20 19:30 999 mls/hr .Q1H1M LOI Administration Discontinued Medications Generic Name Dose Route Start Last Admin Trade Name Freq PRN Reason Stop Dose Admin Ketorolac Tromethamine 30 mg 04/23/20 18:19 04/23/20 18:55 Ketorolac 30mg/Ml Vial IV 04/23/20 18:20 30 mg ONCE ONE Administration Promethazine HCl 25 mg 04/23/20 18:19 04/23/20 18:55 Promethazine Hcl 25mg/Ml 1ml Vial IV 04/23/20 18:20 25 mg ONCE ONE Administration Sodium Chloride 25 ml 04/23/20 18:19 04/23/20 18:55 Sodium Chloride 0.9% 25ml Bag IV 04/23/20 18:20 25 ml ONCE ONE Administration - Reevaluation(s) Time: 19:41 Reevaluation #1: On reevaluation, the patient is feeling much better. Repeat neurologic exam is normal. She tolerated oral intake. I do believe the patient's symptoms are consistent with migraine. I did offer lumbar puncture, however the patient is declining given that she feels much better. She like to follow-up with her primary pain management physician. Patient given strict return precautions. Verbalized understanding. Medical Decision Narrative: 40-year-old female presented to the emergency department with a headache. Patient no focal findings on neurologic exam. Work-up initiated. Headache HPI - General Chief Complaint: Headache Stated Complaint: nausea heada
[2020-04-23 18:57] VITALS: BP 150/95; PULSE 70; RESP 20; O2SAT 96
[2020-04-23 19:17] LABS: Basophils # 0.1 K/mm3 (0-0.2); Basophils % 0.9 % (0.1-2.0); Eosinophils # 0.2 K/mm3 (0.0-0.4); Eosinophils % 1.5 % (0.1-12.0); Hematocrit 49.7 % (37.0-47.0); Hemoglobin 16.9 g/dL (12.2-16.2); Lymphocytes # 2.2 K/mm3 (0.7-4.5); Lymphocytes % 22.7 % (10-50); Mean Corpuscular Hemoglobin 33.8 pg (27.0-31.2); Mean Corpuscular Volume 99.2 fl (81-99); Mean Platelet Volume 8.9 fl (7.4-10.4); Monocytes # 0.5 K/mm3 (0.1-1.0); Monocytes % 4.8 % (1.7-9.3); Neutrophils # 6.9 K/mm3 (1.8-7.8); Neutrophils % 70.1 % (37.0-80.0); Platelet Count 156 K/mm3 (142-424); Red Blood Count 5.01 M/mm3 (4.20-5.40); Red Cell Distribution Width 13.6 % (11.5-17.5); White Blood Count 9.9 K/mm3 (4.8-10.8)
[2020-04-23 19:24] LABS: Chloride 100 mmol/L (98-107); Potassium 3.8 mmoL/L (3.5-5.1); Sodium 138 mmol/L (136-145)
[2020-04-23 19:26] LABS: Blood Urea Nitrogen 14 mg/dl (7-17); Creatinine Clearance Estimated 96 mL/min (50-200); Estimated Glomerular Filt Rate 69 ml/min (>60); GFR (African American) 83 ML/MIN (>60)
[2020-04-23 19:27] LABS: Alanine Aminotransferase 14 U/L (12-78); Albumin Level 4.4 g/dl (3.5-5.0); Albumin/Globulin Ratio 1.3 (1.1-1.8); Alkaline Phosphatase 60 U/L (38-126); Anion Gap 11.8 mEq/L (5-15); Aspartate Amino Transferase 30 U/L (14-36); Bilirubin,Total 0.8 mg/dl (0.2-1.3); Calcium 9.7 mg/dl (8.4-10.2); Carbon Dioxide 30 mmol/L (22.0-30.0); Globulin 3.5 g/dL (1.3-3.2); Glucose 103 mg/dl (74-100); Total Protein,Serum 7.9 g/dl (6.3-8.2)
[2020-04-23 20:07] VITALS: BP 150/95; PULSE 76; RESP 15; TEMP 36.8; O2SAT 98
== END 2020-04-23 20:52 | disposition home or self-care (01) ==
PROVIDERS: Emergency Provider Emergency Medicine; PCP Emergency Medicine
DX: G43.009 Migraine without aura, not intractable, without status migrainosus (principal); E78.5 Hyperlipidemia, unspecified; F41.8 Other specified anxiety disorders; I48.91 Unspecified atrial fibrillation; K21.9 Gastro-esophageal reflux disease without esophagitis; I10 Essential (primary) hypertension; E03.9 Hypothyroidism, unspecified; F17.210 Nicotine dependence, cigarettes, uncomplicated; Z79.899 Other long term (current) drug therapy
CPT/HCPCS: 80053; 85025; 96365; 96375; 99283

== ENCOUNTER → 2020-04-25 12:45 | Outpatient (CLI) | payer BC, OTHER, SELFPAY ==
--- NOTE | 2020-04-25 12:45 | US_ITS ---
PROCEDURE: US THYROID CLINICAL INDICATION: right goiter Follow-up nodules COMPARISON: US US THYROID from 10/04/2019 FINDINGS: Right lobe: 1.5cm x 4.2cm x 1.9cm Left lobe: 1.6cm x 4.3cm x 1.8cm Isthmus: Mildly thickened 4 mm. Additional findings: A benign-appearing 8 mm cyst is present in the mid polar region on the right. There is some heterogeneous echogenicity in the lower pole at 8 mm unchanged. Unremarkable left lobe. IMPRESSION: Stable appearance of the thyroid gland which is slightly enlarged with no change in the right-sided nodules. Dictated by: John Yanez MD 04/26/2020 09:05 John Yanez MD in [place] 04/26/2020 09:05
== END ==
PROVIDERS: PCP Emergency Medicine; Visit Provider Otolaryngology
DX: E04.1 Nontoxic single thyroid nodule (principal)
CPT/HCPCS: 76536

== ENCOUNTER → 2020-09-03 08:37 | Outpatient (CLI) | payer BC, OTHER, SELFPAY ==
--- NOTE | 2020-09-03 08:37 | MM_ITS ---
PROCEDURE INFORMATION: Exam: MG Screening 3D Mammography Exam date and time: 09/03/2020 8:37 AM Age: 40 years old Clinical indication: Encounter for screening mammogram for malignant neoplasm of breast TECHNIQUE: Imaging protocol: Screening tomosynthesis and 2D mammography including computer-aided detection (CAD) when performed. COMPARISON: 1. MG MM DIG MAMM DX UNILAT LT CAD 08/01/2019 2:50 PM 2. MG MM DIG SCREENING MAMM BI W/CAD 07/17/2019 9:04 AM FINDINGS: MAMMOGRAPHY: Breast composition: The breast tissue is composed of scattered areas of fibroglandular density. Mass: None. Architectural distortion: None. Calcifications: No suspicious calcifications. Asymmetric density: None. Skin thickening: None. Axillary adenopathy: None. IMPRESSION: No mammographic evidence of malignancy. Annual screening is recommended unless otherwise clinically indicated. ASSESSMENT: BI-RADS Category 1: Negative
== END ==
PROVIDERS: PCP Emergency Medicine; Visit Provider Emergency Medicine
DX: Z12.31 Encounter for screening mammogram for malignant neoplasm of breast (principal)
CPT/HCPCS: 77063; 77067

== ENCOUNTER → 2020-09-06 16:54 | Outpatient (CLI) | payer BC, OTHER, SELFPAY ==
[2020-09-06 16:57] LABS: Microscopic, Urine URINE MICROSCOPIC (MICROSCOPIC)
[2020-09-06 17:52] LABS: Appearance,Urine CLEAR (Clear); Blood, Urine Negative (Negative); Color,Urine YELLOW (Yellow); Glucose,Urine (UA) Negative (Negative); Ketones,Urine TRACE (Negative); Leukocyte Esterase,Urine Negative (Negative); Nitrate,Urine Negative (Negative); PH,Urine 5.5 (5.0-8.5); Protein,Urine Negative (Negative); Specific Gravity, Urine >= 1.030 (1.005-1.030)
[2020-09-06 17:56] LABS: Bilirubin,Urine Negative (Negative)
[2020-09-06 18:04] LABS: Amorphous Sediment,Urine 3+ /lpf; Bacteria,Urine 4+ /lpf; Squamous Epithelial Cell,Urine Occasional #/hpf (0-5)
[2020-09-09 13:35] LABS: Amphetamine/Metha Screen,Urine Negative ng/ml (<1000)
[2020-09-09 13:36] LABS: Barbiturates Screen,Urine Negative ng/ml (<200)
[2020-09-09 13:37] LABS: Benzodiazepines Screen,Urine Negative ng/ml (<200); Cannabinoid Screen,Urine Negative ng/ml (<50)
[2020-09-09 13:38] LABS: Cocaine Screen,Urine Negative ng/ml (<300); Methadone Screen,Urine Negative ng/ml (<300)
[2020-09-09 13:39] LABS: Opiate Screen,Urine Positive ng/ml (<300)
[2020-09-09 13:40] LABS: Phencyclidine Screen,Urine Negative ng/ml (<25)
== END ==
PROVIDERS: Visit Provider Emergency Medicine
DX: Z79.899 Other long term (current) drug therapy (principal)
CPT/HCPCS: 80305; 81001; 87086

== ENCOUNTER → 2020-09-24 14:42 | Outpatient (CLI) | payer BC, OTHER, SELFPAY ==
--- NOTE | 2020-09-24 14:42 | US_ITS ---
PROCEDURE: US THYROID CLINICAL INDICATION: thyromegly COMPARISON: US US THYROID from 10/04/2019 US US THYROID from 04/25/2020 FINDINGS: Right lobe: 4.2 x 1.5 x 2.1 cm. A 9 x 5 mm cyst is present along the posterior aspect of the right lobe. The previously noted nodule in the mid aspect of the right lobe is less apparent and may be have been due to an area of heterogeneous echogenicity. Left lobe: 4.4 x 1.5 x 1.9 cm with homogeneous echogenicity. Isthmus: Unremarkable Additional findings: IMPRESSION: Benign-appearing right thyroid cyst otherwise negative thyroid ultrasound Dictated by: John Yanez MD 09/24/2020 16:38 John Yanez MD in [place] 09/24/2020 16:38
== END ==
PROVIDERS: PCP Emergency Medicine; Visit Provider Otolaryngology
DX: E01.0 Iodine-deficiency related diffuse (endemic) goiter (principal); E04.1 Nontoxic single thyroid nodule
CPT/HCPCS: 76536

== ENCOUNTER 2020-11-08 11:50 | Emergency (ER) | payer BC, OTHER, SELFPAY ==
[2020-11-08 12:05] VITALS: BP 103/82; PULSE 83; RESP 20; TEMP 36.8; O2SAT 99; BMI 27.1
--- NOTE | 2020-11-08 12:41 | HMH.EDUTC ---
[facility] [place] Clinical Impression: Encounter for laboratory testing for COVID-19 virus Disposition: Home, Self-Care Condition on Discharge: Good Instructions: Coronavirus Disease 2019, DI for COVID-19 (Suspected or Confirmed ), Preventing the Spread of Coronavirus Discharge Instructions Additional Instructions: *Monitor Temp, Over the counter Motrin or Tylenol as directed/as needed Tylenol every 4 hours and Motrin every 6 hours (as long as your family doctor has told you that you can take it) for fever or pain. and straight to ER if unable to lower temp less than 101.0 after medication given *Warm salt water gargles may help to soothe the throat *Throat Lozenges *Warm fluids like tea with honey may help to soothe the throat *Sleep elevated *Humidifier/Vaporizer Mucinex may help with congestion and cough Follow up IMMEDIATELY for new or worsening symptoms or no Noticeable improvement over the next 48-72 hours. 911 for difficulty breathing or swallowing You were tested for today for COVID19 your test result should be back in the next 24-48 hours, you may call to the [facility] to see if your test results are back in the next 48 hours [phone] [facility] hours are 9am-9pm You was given a handout with instructions for Self Quarantine and Self isolation for while you wait on test results and what to do if they are positive If you are positive the Health Dept will be contacting you also Referrals: Jose Villarreal MD [Primary Care Provider] - As needed Forms: Work/School Release Time of Disposition: 12:45 Medical Decision Making - Sae Inquiry Pt receiving controlled substance: No Sae was queried for this patient: No Vital Signs: 11/08/20 12:05 Temperature 98.2 F Temperature Source Oral Pulse Rate [Right Brachial] 83 Respiratory Rate 20 Blood Pressure [Right Arm] 103/82 L Blood Pressure Mean [Right Arm] 89 Blood Pressure Source [Right Arm] Automatic Cuff Blood Pressure Position [Right Arm] Sitting 02 Sat by Pulse Oximetry 99 Oxygen Delivery Method Room Air Orders (Tests/Meds): ORDERS Category Date Time Status Covid-19 Nasal PCR ([facility]) Routine Lab 11/08/20 12:25 Received [facility] [place] HPI - General Stated complaint: covid test Time Seen by Provider: 11/08/20 12:41 Mode of Arrival: Ambulatory Source of Information: Patient Limitations: No Limitations Description of Symptoms (Recalled from Triage Doc. by RN): PATIENT C/O CHILLS, VOMITING, WEAKNESS, AND FATIGUE SINCE WEDNESDAY. RECENTLY EXPOSED TO COVID HEENT Symptoms (Recalled from RN notes): Yes Resp Symptoms (Recalled from RN notes): No Skin Symptoms (Recalled from RN notes): No MS Symptoms (Recalled from RN notes): No Functional Status (Recalled from RN notes): WNL - History of Present Illness Provider Complaint: Patient states that she was around someone last week that was positive for COVID States that for the last couple of days she has been having body aches, chills, nausea and vomiting and weakness States that today she was still feeling bad so she came in to get tested for COVID - Related Data Home Medications Medication Instructions Recorded Confirmed rosuvastatin 40 mg tablet 20 mg PO DAILY tab 07/23/20 10/30/20 naloxone 4 mg/actuation nasal spray ea INTRANASAL 09/30/20 10/30/20 Previous Rx's Medication Instructions Recorded cyclobenzaprine 10 mg tablet 10 mg PO BID #60 tab 10/23/19 cholecalciferol (vitamin D3) 25 1,000 unit PO DAILY #90 cap 04/26/20 mcg (1,000 unit) capsule trazodone 100 mg tablet See Rx Instructions .ROUTE 07/26/20 .COMPLEX #90 tab clonazepam 0.5 mg tablet 0.5 mg PO TID PRN #30 tab 08/13/20 gabapentin 300 mg capsule 300 mg PO TID #90 cap 09/06/20 omeprazole 40 mg capsule,delayed See Rx Instructions .ROUTE 10/23/20 release .COMPLEX #180 cap promethazine 25 mg tablet See Rx Instructions .ROUTE 11/05/20 .COMPLEX #10 tab Allergies Allergy/AdvReac Type Severity Reaction Status Date / Time morphine All
[2020-11-08 12:46] VITALS: BP 103/82; PULSE 83; RESP 20; TEMP 36.8; O2SAT 99
== END 2020-11-08 12:52 | disposition home or self-care (01) ==
LOC: ER 11:51 → UTC 11:54
PROVIDERS: Emergency Provider Nurse Practitioner; PCP Emergency Medicine
DX: Z20.822 Contact with and (suspected) exposure to COVID-19 (principal); R53.1 Weakness; F41.8 Other specified anxiety disorders; K21.9 Gastro-esophageal reflux disease without esophagitis; I10 Essential (primary) hypertension; E78.5 Hyperlipidemia, unspecified; E03.9 Hypothyroidism, unspecified; F17.210 Nicotine dependence, cigarettes, uncomplicated; Z88.1 Allergy status to other antibiotic agents; Z88.5 Allergy status to narcotic agent
CPT/HCPCS: 99202; G0463; U0003

== ENCOUNTER 2020-11-09 17:12 | Emergency (ER) | payer BC, OTHER, SELFPAY ==
[2020-11-09 17:26] VITALS: BP 156/101; PULSE 101; RESP 18; TEMP 36.6; O2SAT 100; BMI 27.8
--- NOTE | 2020-11-09 17:29 | HMH.EDGENADL ---
ED Disposition Clinical Impression: Vomiting Qualifiers: Vomiting type: unspecified Vomiting Intractability: non-intractable Nausea presence: with nausea Qualified Code(s): R11.2 - Nausea with vomiting, unspecified Disposition: Home, Self-Care Condition on Discharge: Good Instructions: DI for Nausea -- Adult, Nausea and Vomiting-Adult Additional Instructions: Please stick to a clear liquid diet for the next day. Slowly advance your diet with solids as tolerated. Continue taking your Phenergan and Zofran as needed. Follow-up with your primary care doctor in about 1 week if you are not feeling better. Keep all appointments as scheduled. Return to the emergency department if you feel worse in any way. Referrals: Jose Villarreal MD [Primary Care Provider] - - Critical Care Critical Care Time: No Attestation: On 11/09/20, the high probability of a clinically significant, sudden or life threatening deterioration of the following system(s) required my full and direct attention, intervention and personal management. The time I documented below is in addition to time spent performing reported procedures but includes the following listed in this critical care notation. Medical Decision Making - Medical Records Medical records reviewed: Yes: I reviewed the patient's medical records. - Sae Inquiry Pt receiving controlled substance: No Vital Signs: 11/09/20 17:26 11/09/20 17:46 Temperature 97.9 F Temperature Source Oral Pulse Rate 66 Pulse Rate [Right] 101 H Respiratory Rate 18 18 Blood Pressure 110/77 Blood Pressure [Right Arm] 156/101 H Blood Pressure Mean [Right Arm] 119 02 Sat by Pulse Oximetry 100 99 Oxygen Delivery Method Room Air - Lab Data Lab results reviewed: Yes: I reviewed the patient's lab results. Lab Results 11/09/20 17:45: WBC 7.5, RBC 5.11, Hgb 16.9 H, Hct 48.4 H, MCV 94.7, MCH 33.1 H, MCHC 35.0, RDW 13.2, Plt Count 170, MPV 9.3, Neut % (Auto) 61.8, Lymph % (Auto) 28.4, [place] % (Auto) 4.2, Eos % (Auto) 4.1, Baso % (Auto) 1.4, Neut # (Auto) 4.6, Lymph # (Auto) 2.1, [place] # (Auto) 0.3, Eos # (Auto) 0.3, Baso # (Auto) 0.1 11/09/20 17:45: Serum HCG, Qual Negative 11/09/20 18:15: Sodium 141, Potassium 4.1, Chloride 106, Carbon Dioxide 27, Anion Gap 12.1, BUN 12, Creatinine 0.80, Estimated Creat Clear 106, Estimated GFR 79, Est GFR ( Amer) 95, Glucose 106 H, Calcium 9.3, Total Bilirubin 0.5, AST 33, ALT 19, Alkaline Phosphatase 61, Total Protein 7.2, Albumin 4.2, Globulin 3.0, Albumin/Globulin Ratio 1.4, Lipase 145 11/09/20 18:50: Urine Color Dk yellow, Urine Appearance Sl cloudy, Urine pH 6.0, Ur Specific [place] 1.025, Urine Protein Trace, Urine Glucose (UA) Negative, Urine Ketones Negative, Urine Blood Trace-i, Urine Nitrate Negative, Urine Bilirubin Negative, Urine Urobilinogen 1.0, Ur Leukocyte Esterase Negative, Urine RBC 3-5, Ur Squamous Epith Cells Occasional, Amorphous Sediment Trace, Urine Mucus 4+ Result diagrams: 11/09/20 17:45 11/09/20 18:15 Medical Decision Narrative: The patient's work-up in the emergency department today did not reveal any life-threatening or dangerous causes for the patient's symptoms. Her laboratory values are essentially unremarkable. She is not . Her vital signs stabilized without any intervention. The patient states that she already has Zofran and Phenergan at home. I feel the patient can be safely discharged home with instructions to follow-up with her primary care physician as scheduled or within the next week if her symptoms do not improve. I also advised the patient to keep her appointment for her scheduled colonoscopy. General Adult HPI - General Chief complaint: Nausea/Vomiting/Diarrhea Stated complaint: vomiting, feverish,AMOS Time Seen by Provider: 11/09/20 17:29 Mode of Arrival: Ambulatory Source of Information: Patient - History of Present Illness HPI narrative: Of nausea and vomiting and not feeling well for several d
[2020-11-09 17:46] VITALS: BP 110/77; PULSE 66; RESP 18; O2SAT 99
[2020-11-09 18:01] LABS: Basophils # 0.1 K/mm3 (0-0.2); Basophils % 1.4 % (0.1-2.0); Eosinophils # 0.3 K/mm3 (0.0-0.4); Eosinophils % 4.1 % (0.1-12.0); Hematocrit 48.4 % (37.0-47.0); Hemoglobin 16.9 g/dL (12.2-16.2); Lymphocytes # 2.1 K/mm3 (0.7-4.5); Lymphocytes % 28.4 % (10-50); Mean Corpuscular Hemoglobin 33.1 pg (27.0-31.2); Mean Corpuscular Volume 94.7 fl (81-99); Mean Platelet Volume 9.3 fl (7.4-10.4); Monocytes # 0.3 K/mm3 (0.1-1.0); Monocytes % 4.2 % (1.7-9.3); Neutrophils # 4.6 K/mm3 (1.8-7.8); Neutrophils % 61.8 % (37.0-80.0); Platelet Count 170 K/mm3 (142-424); Red Blood Count 5.11 M/mm3 (4.20-5.40); Red Cell Distribution Width 13.2 % (11.5-17.5); White Blood Count 7.5 K/mm3 (4.8-10.8)
[2020-11-09 18:11] LABS: HCG Qualitative, Serum Negative (Negative)
--- NOTE | 2020-11-09 18:15 | PC.NURSE ---
butterfly straight stick to right hand for additional green top per lab request.
[2020-11-09 18:30] LABS: Chloride 106 mmol/L (98-107); Potassium 4.1 mmoL/L (3.5-5.1); Sodium 141 mmol/L (136-145)
[2020-11-09 18:32] LABS: Blood Urea Nitrogen 12 mg/dl (7-17)
[2020-11-09 18:33] LABS: Alanine Aminotransferase 19 U/L (12-78); Albumin Level 4.2 g/dl (3.5-5.0); Albumin/Globulin Ratio 1.4 (1.1-1.8); Alkaline Phosphatase 61 U/L (38-126); Anion Gap 12.1 mEq/L (5-15); Aspartate Amino Transferase 33 U/L (14-36); Bilirubin,Total 0.5 mg/dl (0.2-1.3); Calcium 9.3 mg/dl (8.4-10.2); Carbon Dioxide 27 mmol/L (22.0-30.0); Creatinine Clearance Estimated 106 mL/min (50-200); Estimated Glomerular Filt Rate 79 ml/min (>60); GFR (African American) 95 ML/MIN (>60); Glucose 106 mg/dl (74-100); Lipase 145 U/L (23-300); Total Protein,Serum 7.2 g/dl (6.3-8.2)
[2020-11-09 18:58] LABS: Microscopic, Urine URINE MICROSCOPIC (MICROSCOPIC)
[2020-11-09 19:00] LABS: Appearance,Urine SL CLOUDY (Clear); Blood, Urine TRACE-I (Negative); Color,Urine DK YELLOW (Yellow); Glucose,Urine (UA) Negative (Negative); Ketones,Urine Negative (Negative); Leukocyte Esterase,Urine Negative (Negative); Nitrate,Urine Negative (Negative); Protein,Urine TRACE (Negative); Specific Gravity, Urine 1.025 (1.005-1.030)
[2020-11-09 19:08] LABS: Bilirubin,Urine Negative (Negative)
[2020-11-09 19:09] LABS: Amorphous Sediment,Urine Trace /lpf; Mucus,Urine 4+ /lpf; Squamous Epithelial Cell,Urine Occasional #/hpf (0-5)
[2020-11-09 19:48] VITALS: BP 110/77; PULSE 66; RESP 18; TEMP 36.6; O2SAT 99
== END 2020-11-09 19:51 | disposition home or self-care (01) ==
PROVIDERS: Emergency Provider Emergency Medicine; PCP Emergency Medicine
DX: Z20.822 Contact with and (suspected) exposure to COVID-19 (principal); R11.2 Nausea with vomiting, unspecified; R19.7 Diarrhea, unspecified; E03.9 Hypothyroidism, unspecified; I10 Essential (primary) hypertension; E78.5 Hyperlipidemia, unspecified; Z79.899 Other long term (current) drug therapy
CPT/HCPCS: 80053; 81001; 83690; 84703; 85025; 99283

== ENCOUNTER → 2020-12-18 17:21 | Outpatient (CLI) | payer BC, OTHER, SELFPAY | PROVIDERS: PCP Emergency Medicine; Visit Provider Nurse Practitioner | DX: Z20.822 Contact with and (suspected) exposure to COVID-19 (principal) | CPT/HCPCS: C9803; U0003; U0005 ==

== ENCOUNTER → 2021-01-08 17:55 | Outpatient (CLI) | payer BC, OTHER, SELFPAY ==
[2021-01-08 19:08] LABS: Alanine Aminotransferase 10 U/L (12-78); Albumin Level 4.1 g/dl (3.5-5.0); Albumin/Globulin Ratio 1.4 (1.1-1.8); Alkaline Phosphatase 67 U/L (38-126); Amylase 49 U/L (30-110); Anion Gap 9.8 mEq/L (5-15); Aspartate Amino Transferase 22 U/L (14-36); Bilirubin,Total 0.6 mg/dl (0.2-1.3); Blood Urea Nitrogen 6 mg/dl (7-17); Calcium 9.4 mg/dl (8.4-10.2); Carbon Dioxide 28 mmol/L (22.0-30.0); Chloride 105 mmol/L (98-107); Chol/HDL Ratio 7.3 (1-3.5); Cholesterol 264 mg/dl (140-200); Estimated Glomerular Filt Rate 109 ml/min (>60); GFR (African American) 132 ML/MIN (>60); Globulin 2.9 g/dL (1.3-3.2); Glucose 73 mg/dl (74-100); HDL Cholesterol 36 mg/dl (40-60); Lipase 51 U/L (23-300); Potassium 3.8 mmoL/L (3.5-5.1); Sodium 139 mmol/L (136-145); Triglycerides 196 mg/dl (30-150); VLDL Cholesterol 39 mg/dL (0-40)
[2021-01-08 19:20] LABS: Direct LDL Cholesterol 173.12 mg/dL (100-129)
[2021-01-08 20:06] LABS: Basophils # 0.1 K/mm3 (0-0.2); Basophils % 1.6 % (0.1-2.0); Eosinophils # 0.2 K/mm3 (0.0-0.4); Eosinophils % 2.8 % (0.1-12.0); Hematocrit 50.7 % (37.0-47.0); Hemoglobin 16.5 g/dL (12.2-16.2); Lymphocytes # 1.8 K/mm3 (0.7-4.5); Lymphocytes % 26.2 % (10-50); Mean Corpuscular HGB Conc 32.5 g/dL (31.8-35.4); Mean Corpuscular Hemoglobin 33.2 pg (27.0-31.2); Mean Corpuscular Volume 102.3 fl (81-99); Mean Platelet Volume 11.9 fl (7.4-10.4); Monocytes # 0.3 K/mm3 (0.1-1.0); Monocytes % 4.9 % (1.7-9.3); Neutrophils # 4.3 K/mm3 (1.8-7.8); Neutrophils % 64.6 % (37.0-80.0); Platelet Count 183 K/mm3 (142-424); Red Blood Count 4.96 M/mm3 (4.20-5.40); Red Cell Distribution Width 13.3 % (11.5-17.5); White Blood Count 6.7 K/mm3 (4.8-10.8)
[2021-01-08 21:06] LABS: Erythrocyte Sedimentation Rate 4 mm/hr (0-20)
[2021-01-10 05:10] LABS: Hep A Ab, IgM Negative (Negative); Hepatitis B Core Antibody IgM Negative (Negative); Hepatitis B Surface Antigen Negative (Negative); Hepatitis C Antibody <0.1 s/co ratio (0.0-0.9)
== END ==
PROVIDERS: Visit Provider Emergency Medicine
DX: R00.2 Palpitations (principal); R11.2 Nausea with vomiting, unspecified; R10.9 Unspecified abdominal pain; R94.5 Abnormal results of liver function studies; F17.210 Nicotine dependence, cigarettes, uncomplicated
CPT/HCPCS: 80053; 80061; 80074; 82150; 83690; 85025; 85651

== ENCOUNTER → 2021-01-14 08:18 | Outpatient (CLI) | payer BC, OTHER, SELFPAY ==
--- NOTE | 2021-01-14 08:19 | US_ITS ---
PROCEDURE: US GALLBLADDER CLINICAL INDICATION: abdominal pain COMPARISON: No exams were available for comparison FINDINGS: Pancreas: Unremarkable Liver: Unremarkable. There is appropriate direction of blood flow within a non dilated portal vein. Right kidney: Unremarkable appearing. No hydronephrosis. Gallbladder: Cholelithiasis. Thirteen 8 mm stone is present in the gallbladder. No gallbladder wall thickening, pericholecystic fluid, or biliary dilatation. Common bile duct is 2 mm. IMPRESSION: Cholelithiasis Dictated by: John Yanez MD 01/15/2021 08:06 John Yanez MD in [place] 01/15/2021 08:06
== END ==
PROVIDERS: PCP Emergency Medicine; Visit Provider Emergency Medicine
DX: R10.9 Unspecified abdominal pain (principal)
CPT/HCPCS: 76705

== ENCOUNTER → 2021-01-21 13:51 | Outpatient (CLI) | payer BC, OTHER, SELFPAY ==
[2021-01-21 14:00] LABS: Basophils % 0.5 % (0.1-2.0); Eosinophils # 0.3 K/mm3 (0.0-0.4); Eosinophils % 4.3 % (0.1-12.0); Hemoglobin 15.7 g/dL (12.2-16.2); Lymphocytes % 32.3 % (10-50); Mean Corpuscular HGB Conc 32.6 g/dL (31.8-35.4); Mean Corpuscular Hemoglobin 33.4 pg (27.0-31.2); Mean Corpuscular Volume 102.2 fl (81-99); Mean Platelet Volume 8.7 fl (7.4-10.4); Monocytes # 0.2 K/mm3 (0.1-1.0); Monocytes % 3.8 % (1.7-9.3); Neutrophils # 3.7 K/mm3 (1.8-7.8); Neutrophils % 59.1 % (37.0-80.0); Platelet Count 189 K/mm3 (142-424); Red Blood Count 4.69 M/mm3 (4.20-5.40); Red Cell Distribution Width 12.4 % (11.5-17.5); White Blood Count 6.2 K/mm3 (4.8-10.8)
[2021-01-23 13:52] LABS: Peripheral Smear Review Scanned Result
== END ==
PROVIDERS: Visit Provider Physician Assistant
DX: R89.9 Unspecified abnormal finding in specimens from other organs, systems and tissues (principal)
CPT/HCPCS: 85025

== ENCOUNTER 2021-01-22 10:00 | Outpatient (RCR) | payer BC, OTHER, SELFPAY ==
--- NOTE | 2020-12-27 15:11 | HMH.PTOPEV ---
PT Outpatient Evaluation Rehab PT Outpatient Evaluation Start: 12/27/20 14:48 Freq: Status: Active Protocol: Document 12/27/20 14:50 SARY (Rec: 12/27/20 15:10 SARY [id number]) Electronically Signed By Rod Guido, PT 12/27/20 14:50 Outpatient Therapy Subjective History Subjective History Patient is a 40 year old female presenting to outpatient PT with reports of chronic LBP of insidious onset starting community health 4 years ago. Patient reports LLE radicular symptoms from the knee to the foot, as well as RLE radicular symptoms to L5 dermatome. Patient has been being treated by pain management. She currently receives R SIJ injections. She previously had a spinal stimulator placed which has since been removed. Most recently she underwent surgery for placement of lumbar spine pain pump 03/2012. Comorbidities include hx of R shoulder surgery and HL. Chief Complaint Pain,Stiff,Paresthesia Symptom Type Throb,Burning,Numbness, Tingling Symptoms Relieved By Rest/Positioning,Heat,OTC Meds ,Prescription Meds Symptoms Aggravated By Standing,Bending/Stooping, Physical Activity,Lifting Prior Functional Limitations None Current Functional Limitations Reaching,Lifting,Housework, Sleeping,Standing,Squatting, Recreation Activity,Walking, Bending/Stooping Symptom Description Constant and Continuous Level of pain today (0-10) 7 Pain scale - at its best (0-10) 7 Pain scale - at its worst (0-10) 7 Lumbopelvic Eval Posture Thoracic Spine Posture Standing Position Increased Kyphosis Lumbar Spine Posture Standing Position Decreased Lordosis Assistive device Assistive Devices None / NA Gait Observation General Gait Pattern Observation Antalgic Gait Palapation tenderness bilateral lumbar spinal tenderness Yes: L2-5 2/4 paraspinal tenderness Yes: right Lumbar/Sacral Palpation Findings Tenderness Lumbar/Sacral Palpation Overall Comment R SIJ 3/4 Accessory Movement L2 bilateral L3 bilateral L4
== END 2021-01-22 10:05 | disposition home or self-care (01) ==
LOC: PT 10:00
PROVIDERS: PCP Emergency Medicine; Visit Provider Physical Medicine & Rehabilitation
DX: G89.4 Chronic pain syndrome (principal)
CPT/HCPCS: 20561; 97010; 97110; 97163

== ENCOUNTER → 2021-02-08 11:09 | Outpatient (CLI) | payer BC, OTHER, SELFPAY ==
[2021-02-08 12:00] LABS: Basophils # 0.1 K/mm3 (0-0.2); Basophils % 0.8 % (0.1-2.0); Eosinophils # 0.3 K/mm3 (0.0-0.4); Eosinophils % 3.3 % (0.1-12.0); Hematocrit 46.1 % (37.0-47.0); Hemoglobin 15.1 g/dL (12.2-16.2); Lymphocytes # 2.2 K/mm3 (0.7-4.5); Lymphocytes % 24.2 % (10-50); Mean Corpuscular HGB Conc 32.8 g/dL (31.8-35.4); Mean Corpuscular Hemoglobin 33.3 pg (27.0-31.2); Mean Corpuscular Volume 101.4 fl (81-99); Mean Platelet Volume 9.6 fl (7.4-10.4); Monocytes # 0.4 K/mm3 (0.1-1.0); Monocytes % 4.2 % (1.7-9.3); Neutrophils # 6.2 K/mm3 (1.8-7.8); Neutrophils % 67.5 % (37.0-80.0); Platelet Count 184 K/mm3 (142-424); Red Blood Count 4.55 M/mm3 (4.20-5.40); Red Cell Distribution Width 13.2 % (11.5-17.5); White Blood Count 9.2 K/mm3 (4.8-10.8)
[2021-02-08 13:02] LABS: Chloride 104 mmol/L (98-107); Potassium 3.7 mmoL/L (3.5-5.1); Sodium 137 mmol/L (136-145)
[2021-02-08 13:04] LABS: Blood Urea Nitrogen 4 mg/dl (7-17); Estimated Glomerular Filt Rate 109 ml/min (>60); GFR (African American) 132 ML/MIN (>60)
[2021-02-08 13:05] LABS: Alanine Aminotransferase 11 U/L (12-78); Albumin Level 3.7 g/dl (3.5-5.0); Albumin/Globulin Ratio 1.4 (1.1-1.8); Alkaline Phosphatase 57 U/L (38-126); Anion Gap 8.7 mEq/L (5-15); Aspartate Amino Transferase 20 U/L (14-36); Bilirubin,Total 0.2 mg/dl (0.2-1.3); Calcium 8.8 mg/dl (8.4-10.2); Carbon Dioxide 28 mmol/L (22.0-30.0); Globulin 2.6 g/dL (1.3-3.2); Glucose 87 mg/dl (74-100); Total Protein,Serum 6.3 g/dl (6.3-8.2)
== END ==
PROVIDERS: Visit Provider Surgery
DX: Z01.812 Encounter for preprocedural laboratory examination (principal); Z11.52 Encounter for screening for COVID-19; K80.20 Calculus of gallbladder without cholecystitis without obstruction
CPT/HCPCS: 36415; 80053; 85025; C9803; U0003; U0005

== ENCOUNTER 2021-02-11 08:32 | Day surgery (SDC) | payer BC, OTHER, SELFPAY ==
[2021-02-04 10:38] VITALS: BMI 29.0
[2021-02-10 08:41] LABS: HCG Qualitative, Serum Negative (Negative)
[2021-02-11] VITALS (11 sets, daily range): BP systolic 94–151; BP diastolic 54–87; PULSE 55–78; RESP 12–20; TEMP 36.4–43; O2SAT 94–99
--- NOTE | 2021-02-11 10:00 | P.PN_ITS ---
[facility] Anesthesia Checklist - Structural Data Admitted From: Home Planned Operative Procedure/s: billy mayere Consent for Planned Operative Procedure(s) Verified: Yes - Additional verifications Anesthesia Reactions: No Hx Blood Transfusions: No Blood Transfusion Reaction: No - Airway Assessment C-Spine Mobility Assessed: Yes TMJ Mobility Assessed: Yes Dentition: Edentulous - Neurological Assessment Level of Consciousness: Awake, Alert, Appropriate - Anesthesia Plan Anesthesia Risk discussed: Yes Anesthesia Plan: Verified ASA Class: II Anesthesia Type: General [facility] History I have reviewed the patient's past medical history: Yes Medical History: Reports:: Anxiety, Atrial Fibrillation, Depression, Gastroesophageal Reflux Disease(GERD), Hyperlipidemia, Hypertension, Palpitations Denies:: Cancer, Diabetes Mellitus Type 1, Diabetes Mellitus Type 2, Internal Pacemaker, Lung Disease, MRSA, Seizures *Have you ever received a pneumonia vaccine?: No *Have you received a flu vaccine this season?: No Other Medical History: Reports: Arthritis, Hypothyroidism, Sinus Problems, Thyroid Disease, Other. Denies: Blood Transfusion Reaction Anesthesia experience/problems:: none Laterality Cases: Right: Arthroscopy Shoulder, Bilateral: Carpal Tunnel Release, Tonsillectomy Other Surgeries: Yes: Tubal Ligation, Other. No: Pacemaker Amputation: No Fractures: No - *Social History Last grade of school completed: High school graduate Smoking Status: Current every day smoker Tobacco Type: cigarettes # Packs/Day (cigarettes): 1 Alcohol Intake: never Substance Use Type: denies use *Occupational Status:: unemployed Housing: house Household Members: spouse *Travel in the last 8 weeks: None - Psychiatric History Pschychiatric History:: Reports:: Anxiety, Depression Family Hx:: Diabetes, Heart Attack, Hyperlipidemia, Hypertension, Stroke, Alcoholism
--- NOTE | 2021-02-11 10:37 | HMH.OPNOTE ---
Date of procedure: 02/11/21 Pre-op Diagnosis:: Symptomatic gallstones Post-op Diagnosis:: Same Procedure performed:: Laparoscopic cholecystectomy Surgeon:: Brian Hernandez MD SENIOR VALIDATION ENGINEER:: Garrett Yen Anesthesia: GETA Estimated blood loss (mL): 20 Clinical Note:: Patient is a 41-year-old female referred by Dr. Villarreal for gallbladder. She has a history of chronic neck pain and degenerative disc disease with pain pump. For about 3 months she has had symptoms of relatively persistent nausea. This has resulted in unintentional 30 pound weight loss. She is also had some pain in the right shoulder area and some abdominal pains described as spasms. She underwent gallbladder work-up with ultrasound which reveals normal common bile duct. There is a moderate sized gallstone present. Gallbladder report reads as thirteen 8 mm gallstone . However, this appears as though this is a 13 x 8 mm gallstone. The options were discussed with the patient. She wished to proceed with cholecystectomy. Operative findings:: She had a somewhat thickened elongated gallbladder with a moderate sized stone. There were omental adhesions to the gallbladder. Operative note:: Patient was taken to the operating room. She was given preoperative intravenous antibiotics. In the operating room she was placed in a supine position. General anesthesia was induced via endotracheal tube. Abdomen was prepped and draped in the standard surgical fashion. Subumbilical incision was made and her previous laparoscopy scar. While performing abdominal wall lift Veress needle was inserted. CO2 pneumoperitoneum was achieved to 15 mmHg. 11 mm optical trocar was inserted at the umbilicus. Intraperitoneal contents were visualized. She was positioned in reverse Trendelenburg left side down. A couple of 5 mm trochars were inserted in the right upper abdomen. 10 mm trocar was inserted in the epigastrium. Gallbladder was identified and grasped retracted anteriorly and superiorly over the dome of the liver. There were omental adhesions to the gallbladder which were taken down using blunt dissection. Infundibulum of the gallbladder was grasped retracted anterior laterally. Blunt dissection was carried out the neck of the gallbladder bluntly incising the visceral peritoneum. Dissection was carried out identifying and isolating the cystic duct and cystic artery. Cystic duct was isolated, multiply clipped, and sharply divided. Cystic artery was carefully coagulated with ARSH ultrasonic harmonic sana and divided. Gallbladder was dissected free from the liver in a retrograde fashion using ARSH ultrasonic harmonic sana. Gallbladder was placed within an Endo Catch retrieval device and removed from the peritoneal cavity via the umbilical trocar site. This required some minor stretching of the fascial incision for delivery. Gallbladder fossa was then inspected for hemostasis which was assured. Limited irrigation was performed of the gallbladder fossa and perihepatic space. Trochars were removed as CO2 pneumoperitoneum was evacuated. Fascia at the umbilicus was closed with several interrupted 0 Vicryl sutures. 0 Vicryl suture was placed in the anterior fascia at the epigastric trocar site. Local anesthetic was infiltrated. Skin incision was closed with 4-0 Monocryl in subcuticular fashion. Steri-Strips and dressings were applied. Condition: stable Disposition: PACU Specimens:: Gallbladder and contents Complications:: None immediately apparent
--- NOTE | 2021-02-11 10:47 | P.PN_ITS ---
[facility] Anesthesia Record Part I Intake, IV Amount: 1,500 Estimated blood loss (mL): 0 Urine output (mL): 0 Blood Pressure: 134/72 SaO2: 94 Pulse Rate: 62 Respiratory Rate: 12 Temperature: 97.5 F Patient is:: Awake, Stable Stable to PACU at:: 10:40
--- NOTE | 2021-02-12 18:33 | P.PN_ITS ---
[facility] Anesthesia Record Part II Discharge Time: 11:15 Destination: home PACU nurse assessment reviewed?: Yes Patient Condition:: Good Anesthesia Complications:: None none Swallowing reflex intact?: Yes Cyanosis?: No Blood Pressure: 131/74 Pulse Rate: 55 Temperature: 98.1 F Mental Status: Alert & Oriented Pain level:: 7 Nausea and/or vomitting:: None Intake, IV Amount: 0
[2021-02-12 18:34] VITALS: BP 131/74; PULSE 55; TEMP 36.7
== END 2021-02-11 11:50 | disposition home or self-care (01) ==
LOC: OR 08:34
PROVIDERS: PCP Emergency Medicine; Visit Provider Surgery
PROC: 0FT44ZZ Resection of Gallbladder, Percutaneous Endoscopic Approach (ICD-10-PCS; CPT 47562; principal; 2021-02-11 10:00)
DX: K80.20 Calculus of gallbladder without cholecystitis without obstruction (principal); K66.0 Peritoneal adhesions (postprocedural) (postinfection); F41.9 Anxiety disorder, unspecified; I48.91 Unspecified atrial fibrillation; F32.9 Major depressive disorder, single episode, unspecified; K21.9 Gastro-esophageal reflux disease without esophagitis; E78.5 Hyperlipidemia, unspecified; I10 Essential (primary) hypertension; R00.2 Palpitations; M19.90 Unspecified osteoarthritis, unspecified site; E03.9 Hypothyroidism, unspecified; Z72.0 Tobacco use
CPT/HCPCS: 47562; 84703; 96374; J2405; J2710

== ENCOUNTER → 2021-05-05 08:45 | Outpatient (CLI) | payer BC, OTHER, SELFPAY ==
[2021-05-06 06:36] LABS: Covid-19 Nasal PCR Sendout Lex NOT DETECTED
== END ==
PROVIDERS: Visit Provider Nurse Practitioner
DX: Z20.822 Contact with and (suspected) exposure to COVID-19 (principal)
CPT/HCPCS: C9803; U0004; U0005

== ENCOUNTER → 2021-05-31 11:00 | Outpatient (CLI) | payer BC, OTHER, SELFPAY | PROVIDERS: PCP Emergency Medicine; Referring Provider Physician Assistant; Visit Provider Emergency Medicine | DX: M46.1 Sacroiliitis, not elsewhere classified (principal) ==

== ENCOUNTER → 2021-06-01 11:35 | Outpatient (CLI) | payer BC, OTHER, SELFPAY ==
--- NOTE | 2021-06-01 | XR_ITS ---
PROCEDURE INFORMATION: Exam: XR Bilateral Sacroiliac Joints Exam date and time: 06/01/2021 12:00 AM Age: 41 years old Clinical indication: Pain; Other: Hip; Additional info: Hip pain, she has a pain pump which blocks the left si joint - i included a frog pelvis that i took with the hip xrays as well TECHNIQUE: Imaging protocol: XR Bilateral XR of the sacroiliac joints. Views: 3 or more views. COMPARISON: CR HIPCMRT XR hip RT 2-3V w/pelvis 07/27/2018 11:50 AM FINDINGS: Bones/joints: Normal. No acute fracture. Soft tissues: Normal. Organs: IUD noted. Other findings: Intrathecal pump projects over the left iliac bone. IMPRESSION: No acute osseous abnormality.
--- NOTE | 2021-06-01 | XR_ITS ---
PROCEDURE INFORMATION: Exam: XR Bilateral Hips Exam date and time: 06/01/2021 12:00 AM Age: 41 years old Clinical indication: Hip pain; Bilateral; Additional info: Bilateral hip pain TECHNIQUE: Imaging protocol: XR bilateral hips. Views: 2 views of hips with pelvis when performed. COMPARISON: CR HIPCMRT XR hip RT 2-3V w/pelvis 07/27/2018 11:50 AM FINDINGS: Bones/joints: Unremarkable. No acute fracture. Soft tissues: Unremarkable. IMPRESSION: No acute findings.
== END ==
PROVIDERS: PCP Emergency Medicine; Visit Provider Physician Assistant
DX: M46.1 Sacroiliitis, not elsewhere classified (principal)
CPT/HCPCS: 72202; 73521

== ENCOUNTER → 2021-07-22 09:54 | Outpatient (CLI) | payer BC, OTHER, SELFPAY ==
--- NOTE | 2021-07-22 10:02 | XR_ITS ---
FINAL REPORT CLINICAL HISTORY: tobacco use COMPARISON: 05/18/2019 FINDINGS: Two views of the chest were obtained. The heart size and pulmonary vascularity are within normal limits. The mediastinum is normal. No acute pulmonary abnormality is identified. There is no pneumothorax. The bony thorax is intact. IMPRESSION: No active cardiopulmonary disease. Reviewed, Interpreted and Dictated by Brian Rand III, MD Transcribed by Iam Belcher Authenticated by Brian Rand III, MD on 07/22/2021 11:25:34 AM [facility]
== END ==
PROVIDERS: PCP Emergency Medicine; Visit Provider Physician Assistant
DX: R07.89 Other chest pain (principal); Z72.0 Tobacco use
CPT/HCPCS: 71046

== ENCOUNTER → 2021-09-12 08:45 | Outpatient (CLI) | payer BC, OTHER, SELFPAY ==
[2021-09-12 10:08] LABS: Basophils # 0.1 K/mm3 (0-0.2); Basophils % 1.5 % (0.1-2.0); Eosinophils # 0.2 K/mm3 (0.0-0.4); Eosinophils % 4.7 % (0.1-12.0); Hematocrit 45.7 % (37.0-47.0); Hemoglobin 15.2 g/dL (12.2-16.2); Lymphocytes # 1.6 K/mm3 (0.7-4.5); Lymphocytes % 35.5 % (10-50); Mean Corpuscular HGB Conc 33.2 g/dL (31.8-35.4); Mean Corpuscular Hemoglobin 33.2 pg (27.0-31.2); Mean Corpuscular Volume 100.1 fl (81-99); Mean Platelet Volume 9.1 fl (7.4-10.4); Monocytes # 0.2 K/mm3 (0.1-1.0); Monocytes % 4.7 % (1.7-9.3); Neutrophils # 2.5 K/mm3 (1.8-7.8); Neutrophils % 53.5 % (37.0-80.0); Platelet Count 161 K/mm3 (142-424); Red Blood Count 4.57 M/mm3 (4.20-5.40); Red Cell Distribution Width 12.8 % (11.5-17.5); White Blood Count 4.6 K/mm3 (4.8-10.8)
[2021-09-12 10:49] LABS: Alanine Aminotransferase 11 U/L (12-78); Albumin Level 3.7 g/dl (3.5-5.0); Albumin/Globulin Ratio 1.5 (1.1-1.8); Alkaline Phosphatase 58 U/L (38-126); Aspartate Amino Transferase 21 U/L (14-36); Bilirubin,Total 0.4 mg/dl (0.2-1.3); Blood Urea Nitrogen 12 mg/dl (7-17); Calcium 8.9 mg/dl (8.4-10.2); Carbon Dioxide 29 mmol/L (22.0-30.0); Chloride 107 mmol/L (98-107); Chol/HDL Ratio 7.7 (1-3.5); Cholesterol 293 mg/dl (140-200); Estimated Glomerular Filt Rate 78 ml/min (>60); GFR (African American) 95 ML/MIN (>60); Globulin 2.5 g/dL (1.3-3.2); Glucose 88 mg/dl (74-100); HDL Cholesterol 38 mg/dl (40-60); Sodium 139 mmol/L (136-145); Total Protein,Serum 6.2 g/dl (6.3-8.2); Triglycerides 90 mg/dl (30-150); VLDL Cholesterol 18 mg/dL (0-40)
[2021-09-12 11:00] LABS: Direct LDL Cholesterol 187.04 mg/dL (100-129)
[2021-09-12 11:09] LABS: 25-OH Vitamin D, Total 28.8 ng/mL (30-100); T4 (Thyroxine) 10.4 ug/dl (5.53-11.0)
== END ==
PROVIDERS: PCP Emergency Medicine; Visit Provider Nurse Practitioner Family
DX: Z00.00 Encounter for general adult medical examination without abnormal findings (principal); E55.9 Vitamin D deficiency, unspecified; Z79.899 Other long term (current) drug therapy
CPT/HCPCS: 36415; 80053; 80061; 82306; 84436; 84443; 85025

== ENCOUNTER → 2021-09-19 15:46 | Outpatient (CLI) | payer BC, OTHER, SELFPAY ==
--- NOTE | 2021-09-19 15:47 | MM_ITS ---
PROCEDURE INFORMATION: Exam: MG Bilateral Screening 3D Mammography Exam date and time: 09/19/2021 3:54 PM Age: 41 years old Clinical indication: Screening examination. No family history of breast cancer. TECHNIQUE: Imaging protocol: Bilateral Screening tomosynthesis and 2D mammography including computer-aided detection (CAD) when performed. COMPARISON: 1. MG MM DIG SCREENING MAMM BI W/CAD 09/03/2020 8:52 AM 2. MG MM DIG MAMM DX UNILAT LT CAD 08/01/2019 2:50 PM 3. MG MM DIG SCREENING MAMM BI W/CAD 07/17/2019 9:04 AM 4. MG SCBI MM Dig screening mamm BI w/CAD 07/12/2018 3:40 PM FINDINGS: MAMMOGRAPHY: Breast composition: There are scattered areas of fibroglandular density. Mass: None. Architectural distortion: None. Calcifications: No suspicious calcifications. Asymmetric density: None. Skin thickening: None. Axillary adenopathy: None. IMPRESSION: No mammographic evidence of malignancy. Annual screening is recommended unless otherwise clinically indicated. ASSESSMENT: BI-RADS Category 1: Negative
== END ==
PROVIDERS: PCP Emergency Medicine; Visit Provider Emergency Medicine
DX: Z12.31 Encounter for screening mammogram for malignant neoplasm of breast (principal)
CPT/HCPCS: 77063; 77067

== ENCOUNTER 2021-10-13 16:30 | Emergency (ER) | payer BC, OTHER, SELFPAY ==
[2021-10-13 16:57] VITALS: BP 122/74; PULSE 71; RESP 18; TEMP 36.8; O2SAT 99; BMI 28.5
[2021-10-13 17:02] VITALS: BP 122/74; PULSE 71; RESP 18; TEMP 36.8
--- NOTE | 2021-10-13 17:03 | HMH.EDUTC ---
[facility] Clinical Impression: Exposure to COVID-19 virus Disposition: Home, Self-Care Condition on Discharge: Good Instructions: DI for COVID-19 (Suspected or Confirmed ), Preventing the Spread of Coronavirus Discharge Instructions Additional Instructions: *Monitor Temp, Over the counter Motrin or Tylenol as directed/as needed Tylenol every 4 hours and Motrin every 6 hours (as long as your family doctor has told you that you can take it) for fever or pain. and straight to ER if unable to lower temp less than 101.0 after medication given Follow up IMMEDIATELY for new or worsening symptoms or no Noticeable improvement over the next 48-72 hours. 911 for difficulty breathing or swallowing You were tested for today for COVID19 your test result should be back in the next 24-48 hours, you may check your results on the [facility] [employer] [facility] for your results Make sure to take your Vitamins Vit. C Vit D and Zinc if you can take them Referrals: Jose Villarreal MD [Primary Care Provider] - As needed Forms: Work/School Release Medical Decision Making - Sae Inquiry Pt receiving controlled substance: No Sae was queried for this patient: No Vital Signs: 10/13/21 16:57 10/13/21 17:02 Temperature 98.3 F 98.3 F Temperature Source Oral Pulse Rate 71 Pulse Rate [Left] 71 Respiratory Rate 18 18 Blood Pressure 122/74 Blood Pressure [Right Arm] 122/74 Blood Pressure Mean [Right Arm] 90 02 Sat by Pulse Oximetry 99 [facility] [place] - General Stated complaint: exposed 10/11)covid test Time Seen by Provider: 10/13/21 17:03 Description of Symptoms (Recalled from Triage Doc. by RN): patient here for covid test. pre procedure and covid exposure. HEENT Symptoms (Recalled from RN notes): No Resp Symptoms (Recalled from RN notes): No Skin Symptoms (Recalled from RN notes): No MS Symptoms (Recalled from RN notes): No Functional Status (Recalled from RN notes): n/a - History of Present Illness Provider Complaint: Patient states that she is having a procedure done at [facility] [address] and she was recently exposed to COVID at work States that she needed to get a COVID test so she came in Denies any symptoms - Related Data Home Medications Medication Instructions Recorded Confirmed ibuprofen 600 mg tablet 600 mg PO Q8H PRN 07/18/21 09/08/21 Previous Rx's Medication Instructions Recorded omeprazole 40 mg capsule,delayed See Rx Instructions .ROUTE 04/23/21 release .COMPLEX #90 cap clonazepam 0.5 mg tablet 0.5 mg PO BID PRN #60 tab 07/18/21 lactulose 20 gram/30 mL oral 20 g PO DAILY 30 Days #900 ml 07/18/21 solution Allergies Allergy/AdvReac Type Severity Reaction Status Date / Time morphine Allergy Mild Vomiting Verified 09/08/21 14:07 amoxicillin [From Augmentin] AdvReac Verified 09/08/21 14:07 clavulanic acid AdvReac Verified 09/08/21 14:07 [From Augmentin] - Worker's Comp Is this a Worker's Comp case?: No [facility] History - Hepatitis A Screen Attestation statement:: This patient has been screened for Hepatitis A risk factors. I have reviewed the patient's past medical history: Yes Medical History: Reports:: Anxiety, Atrial Fibrillation, Depression, Gastroesophageal Reflux Disease(GERD), Hyperlipidemia, Hypertension, Palpitations Denies:: Cancer, Diabetes Mellitus Type 1, Diabetes Mellitus Type 2, Internal Pacemaker, Lung Disease, MRSA, Seizures Other Medical History: Reports: Arthritis, Hypothyroidism, Sinus Problems, Thyroid Disease, Other. Denies: Blood Transfusion Reaction Comment: Illnesses-cigarette abuse, hyperlipidemia, GERD, hypothyroidism, chronic back pain Laterality Cases: Right: Arthroscopy Shoulder, Bilateral: Carpal Tunnel Release, Tonsillectomy Other Surgeries: Yes: Cholecystectomy, Tubal Ligation, Other. No: Pacemaker Amputation: No Fractures: No Comment: Operations-right shoulder arthroscopy, bilateral carpal tunnel surgery, tonsillectomy, tubal ligation, stimulator implant, p
== END 2021-10-13 17:10 | disposition home or self-care (01) ==
PROVIDERS: Emergency Provider Nurse Practitioner; PCP Emergency Medicine
DX: Z20.822 Contact with and (suspected) exposure to COVID-19 (principal)
CPT/HCPCS: 99212; C9803; G0463; U0003; U0005

== ENCOUNTER 2022-03-03 18:45 | Emergency (ER) | payer BC, OTHER, SELFPAY ==
--- NOTE | 2022-03-03 20:27 | EXP.UTC ---
Discharge Plan Disposition Patient Disposition: Home, Self-Care Condition: Good Prescriptions Prescriptions: New azithromycin [Zithromax] 250 mg tablet 250 mg PO UD DOSE PK Qty: 6 0RF Rx Instructions: Take two (2) tablets today, then one (1) tablet days #2 thru #5 benzonatate [benzonatate] 100 mg capsule 100 mg PO TIDP PRN (Reason: Cough) Qty: 30 0RF No Action omeprazole 40 mg capsule,delayed release(DR/EC) See Rx Instructions .Route .COMPLEX Qty: 90 0RF Rx Instructions: TAKE 1 CAPSULE BY MOUTH EVERY DAY ibuprofen 600 mg tablet 600 mg PO Q8H PRN lactulose 20 gram/30 mL solution 20 g PO DAILY 30 Days Qty: 900 2RF clonazepam [Klonopin] 0.5 mg tablet 0.5 mg PO BID PRN (Reason: anxiety) Qty: 60 2RF Referrals Follow up/Referrals: Jose Vilalrreal MD [Primary Care Provider] - See instructions Activity Restrictions/Add. Instructions Additional Instructions/Restrictions: Drink plenty of fluids. Take tylenol or ibuprofen for pain or fever. Take the medications as directed. Follow up with your regular doctor. GO TO THE ER FOR ANY WORSENING SYMPTOMS Clinical Impressions Clinical Impression: Acute viral syndrome, Sinusitis Stand Alone Forms Stand Alone Forms: Work/School Release Instructions Patient Instructions: DI for Sinusitis, DI for Viral Syndrome Discharge ED Provider: Georges Faust [facility] General Stated complaint: FLU TEST, AMOS,BODY ACHES, RUNNY NOSE Time Seen by Provider: 03/03/22 20:27 History of Present Illness Provider Complaint: She state that for the past 2 days she has had sinus congestion, headache, chills, body aches, and malaise. She had a negative covid-19 test done at her work ([employer]) yesterday. Related Data Home Medications Medication Instructions Recorded Confirmed ibuprofen 600 mg tablet 600 mg PO Q8H PRN 07/18/21 09/08/21 Previous Rx's Medication Instructions Recorded omeprazole 40 mg capsule,delayed See Rx Instructions .Route 04/23/21 release .COMPLEX ACID REFLUX #90 caps clonazepam 0.5 mg tablet (Klonopin) 0.5 mg PO BID PRN anxiety #60 tabs 07/18/21 lactulose 20 gram/30 mL oral 20 g (30 mL) PO DAILY 30 days #900 07/18/21 solution mL azithromycin 250 mg tablet 250 mg PO UD DOSE PK #6 tabs 03/03/22 (Zithromax) benzonatate 100 mg capsule 100 mg PO TIDP PRN Cough #30 caps 03/03/22 Allergies Allergy/AdvReac Type Severity Reaction Status Date / Time morphine Allergy Mild Vomiting Verified 03/03/22 20:35 amoxicillin [From Augmentin] AdvReac Verified 03/03/22 20:35 clavulanic acid AdvReac Verified 03/03/22 20:35 [From Augmentin] PFSH [facility] Medical History HTN (hypertension) Palpitations Pre-op evaluation Tobacco abuse Social History Smoking Status: Former smoker second hand exposure: Yes alcohol intake: never substance use type: denies use current occupational status: unemployed Travel in the last 8 weeks: None household members: children housing: house current occupational exposures/hazards: No caffeine: Yes ROS Obtained: Yes All systems reviewed & no additional complaints except as documented Constitutional Constitutional: Reports chills and Reports fever(s) Eyes Eyes: Denies eye discharge ENT Ears, Nose, Mouth, and Throat: Reports as per HPI Cardiovascular Cardiovascular: Denies chest pain Respiratory Respiratory: Denies chest congestion and Reports cough Gastrointestinal Gastrointestingal: Reports nausea; Denies abdominal pain, constipation, cramping, diarrhea or vomiting Musculoskeletal Musculoskeletal: Denies arthralgias Integumentary/Breasts Skin/Breast: Denies rash Neurologic Neurologic: Denies paresthesias Physical Exam General General appearance: alert and in no apparent distress Head Head exam: atraumatic, normocephalic and normal inspection
[2022-03-03 20:32] VITALS: BP 145/74; PULSE 74; RESP 18; TEMP 36.7; O2SAT 99; BMI 27.4
[2022-03-03 20:33] LABS: Adenovirus,PCR Not Detected (NotDetected); Bordetella Pertussis Not Detected (NotDetected); Chlamydophila Pneumoniae, PCR Not Detected (NotDetected); Coronavirus 19, PCR Not Detected (NotDetected); Coronavirus 229E Not Detected (NotDetected); Coronavirus NL63 Not Detected (NotDetected); Coronavirus OC43 Not Detected (NotDetected); Coronovirus HKU1,PCR Not Detected (NotDetected); Human Metapneumovirus Not Detected (NotDetected); Influenza A, PCR Not Detected (NotDetected); Influenza AH1, 2009 Not Detected (NotDetected); Influenza AH1, PCR Not Detected (NotDetected); Influenza AH3,PCR Not Detected (NotDetected); Influenza B, PCR Not Detected (NotDetected); Mycoplasma Pneumoniae, PCR Not Detected (NotDetected); Parainfluenza 1, PCR Not Detected (NotDetected); Parainfluenza 2, PCR Not Detected (NotDetected); Parainfluenza 3, PCR Not Detected (NotDetected); Parainfluenza 4, PCR Not Detected (NotDetected); Respiratory Syncytial Virus Not Detected (NotDetected); Rhinovirus/Enterovirus Not Detected (NotDetected)
[2022-03-03 20:51] LABS: UTC Influenza A Antigen Negative (Negative); UTC Influenza B Antigen Negative (Negative)
[2022-03-03 21:06] VITALS: BP 145/74; PULSE 74; RESP 18; TEMP 36.7
== END 2022-03-03 21:09 | disposition home or self-care (01) ==
PROVIDERS: Emergency Provider Nurse Practitioner Family; PCP Emergency Medicine
DX: R00.2 Palpitations (principal); R50.9 Fever, unspecified; M79.10 Myalgia, unspecified site; R53.81 Other malaise; R09.81 Nasal congestion; R51.9 Headache, unspecified; Z20.822 Contact with and (suspected) exposure to COVID-19; R05.9 Cough, unspecified; I10 Essential (primary) hypertension; F41.9 Anxiety disorder, unspecified; Z79.1 Long term (current) use of non-steroidal anti-inflammatories (NSAID); Z79.899 Other long term (current) drug therapy; Z88.0 Allergy status to penicillin; Z88.1 Allergy status to other antibiotic agents; Z88.3 Allergy status to other anti-infective agents; Z88.5 Allergy status to narcotic agent; Z88.8 Allergy status to other drugs, medicaments and biological substances; Z87.891 Personal history of nicotine dependence
CPT/HCPCS: 87581; 87632; 87798; 87804; 99213; C9803; G0463; U0003; U0005

== ENCOUNTER → 2022-06-24 23:00 | Outpatient (CLI) | payer BC, OTHER, SELFPAY ==
[2022-06-24 18:49] LABS: Basophils % 0.8 % (0.1-2.0); Eosinophils # 0.2 K/mm3 (0.0-0.4); Eosinophils % 3.1 % (0.1-12.0); Hematocrit 45.1 % (37.0-47.0); Hemoglobin 14.5 g/dL (12.2-16.2); Lymphocytes % 34.7 % (10-50); Mean Corpuscular HGB Conc 32.2 g/dL (31.8-35.4); Mean Corpuscular Hemoglobin 31.7 pg (27.0-31.2); Mean Corpuscular Volume 98.3 fl (81-99); Mean Platelet Volume 9.9 fl (7.4-10.4); Monocytes # 0.3 K/mm3 (0.1-1.0); Monocytes % 4.3 % (1.7-9.3); Neutrophils # 3.3 K/mm3 (1.8-7.8); Platelet Count 170 K/mm3 (142-424); Red Blood Count 4.58 M/mm3 (4.20-5.40); Red Cell Distribution Width 12.9 % (11.5-17.5); White Blood Count 5.7 K/mm3 (4.8-10.8)
[2022-06-24 19:16] LABS: Alanine Aminotransferase 12 U/L (12-78); Albumin Level 3.9 g/dl (3.5-5.0); Albumin/Globulin Ratio 1.5 (1.1-1.8); Alkaline Phosphatase 66 U/L (38-126); Anion Gap 9.5 mEq/L (5-15); Aspartate Amino Transferase 22 U/L (14-36); Bilirubin,Total 0.3 mg/dl (0.2-1.3); Blood Urea Nitrogen 15 mg/dl (7-17); Calcium 8.5 mg/dl (8.4-10.2); Carbon Dioxide 29 mmol/L (22.0-30.0); Chloride 102 mmol/L (98-107); Chol/HDL Ratio 5.5 (1-3.5); Cholesterol 218 mg/dl (140-200); Estimated Glomerular Filt Rate 91 ml/min (>60); GFR (African American) 110 ML/MIN (>60); Globulin 2.6 g/dL (1.3-3.2); Glucose 88 mg/dl (74-100); HDL Cholesterol 40 mg/dl (40-60); Potassium 4.5 mmoL/L (3.5-5.1); Sodium 136 mmol/L (136-145); Total Protein,Serum 6.5 g/dl (6.3-8.2); Triglycerides 99 mg/dl (30-150); VLDL Cholesterol 20 mg/dL (0-40)
[2022-06-24 19:27] LABS: Direct LDL Cholesterol 155.17 mg/dL (100-129)
[2022-06-24 19:31] LABS: 25-OH Vitamin D, Total 29.8 ng/mL (30-100)
[2022-06-24 19:34] LABS: Free T4 (Free Thyroxine) 1.34 ng/dl (0.78-2.19)
[2022-06-24 19:47] LABS: Thyroid Stimulating Hormone 0.61 uIU/mL (0.465-4.68)
[2022-06-24 20:06] LABS: Vitamin B12 236 pg/mL (239-931)
== END ==
PROVIDERS: PCP Emergency Medicine; Visit Provider Emergency Medicine
DX: R53.83 Other fatigue (principal); E55.9 Vitamin D deficiency, unspecified; E66.3 Overweight; Z68.27 Body mass index [BMI] 27.0-27.9, adult
CPT/HCPCS: 80053; 80061; 82306; 82607; 84439; 84443; 85025

== ENCOUNTER 2022-08-17 07:45 | Day surgery (SDC) | payer BC, OTHER, SELFPAY ==
[2022-08-17] VITALS (9 sets, daily range): BP systolic 118–144; BP diastolic 60–94; PULSE 52–86; RESP 16–18; TEMP 36.1–36.4; O2SAT 95–100; BMI 28.6
[2022-08-17 08:35] LABS: Urine Pregnancy, HCG Qual. Negative (Negative)
--- NOTE | 2022-08-17 08:35 | EXP.GEN.HP ---
HPI HPI HPI: Patient is a 42-year-old female whom I have seen in the past for gallbladder 2 years ago.? She was referred by Dr. Villarreal for scalp cyst.? She described 2 knots on her scalp.? They have been present for quite some time.? They had previously been noted by Dr. Patrick Neal.? However, they have increased in size.? She is worried about the increase in size and she states that she is actually worried about cancer.? She has had several smaller cysts as well on her scalp but she has 1 on the right frontal and right posterior parietal which are larger and more bothersome to her. When she was initially seen in the office she had a couple of moderate cyst on the right side. In the preoperative area she does point out an additional enlarging cyst. [facility] Disclaimer: The information contained in this section may have been updated after the patient was seen, as this information can be updated by other users. Medical History (Updated 08/17/22 @ 08:36 by Patience Kc RN) Bone spur Enlarged thyroid Gallstones History of gastroesophageal reflux (GERD) HTN (hypertension) Migraine Palpitations Pre-op evaluation Rash Sinus headache Tobacco abuse Surgical History (Updated 08/17/22 @ 08:36 by Patience Kc RN) History of surgery History of surgery Hx of tubal ligation Family History (Updated 08/17/22 @ 08:36 by Patience Kc RN) Cancer Social History (Updated 08/17/22 @ 08:38 by Patience Kc RN) Smoking Status: Current every day smoker tobacco type: cigarettes packs per day: 1 years smoked: 20 second hand exposure: Yes alcohol intake: never substance use type: denies use current occupational status: employed Travel in the last 8 weeks: Inside the [place] household members: children housing: house current occupational exposures/hazards: No caffeine: Yes Meds Home Medications and Allergies Home Medications Medication Instructions Recorded Confirmed Type pantoprazole 40 mg tablet,delayed 40 mg PO BID Reflux/Acid reflux 08/17/22 08/17/22 History release New Prescriptions to Start Prescriptions: Allergies Allergy/AdvReac Type Severity Reaction Status Date / Time morphine Allergy Mild Vomiting Verified 08/17/22 08:25 amoxicillin [From Augmentin] AdvReac Verified 08/17/22 08:25 clavulanic acid AdvReac Verified 08/17/22 08:25 [From Augmentin] Exam Data for Last 24 hours Vital signs and Labs for Last 24 Hours: Laboratory Results - last 24 hr 08/17/22 08:18: Urine HCG, Qual Negative I & O for Last 24 hours: Intake & Output 08/14/22 08/15/22 08/16/22 08/17/22 11:59 11:59 11:59 11:59 Weight 167 lb Constitutional Constitutional: no acute distress *Routine HEENT Exam Head: Present normocephalic Eye: Present EOMI and PERRL ENT: Present mucous membranes moist Comments: Right frontal and right posterior parietal scalp cyst consistent with pilar cyst *Routine Neck Exam Neck: Present supple; Absent lymphadenopathy *Routine Respiratory Exam Respiratory: Present CTA bilaterally *Routine Cardiovascular Exam Cardiovascular: Present RRR *Routine Abdominal Exam Abdominal: Present soft and normoactive bowel sounds; Absent tenderness *Routine Rectal Exam Rectal:: deferred *Routine Genitalia Exam Genitalia:: deferred *Routine Extremities Exam Extremities: Absent cyanosis, clubbing or edema *Routine Skin Exam Skin: Present warm; Absent rash *Routine Neurological Exam Neurological: Present alert and oriented X3 Results Results Lab Results Last 24 Hours:: Laboratory Results - last 24 hr 08/17/22 08:18: Urine HCG, Qual Negative Assessment and Plan *Assessment and plan (1) Pilar cyst of scalp: Status: Acute Category: Medical Code(s): L72.11 - Pilar cyst Plan Plan will be to excise with hopeful primary closure.
[2022-08-17 08:52] LABS: Chloride 99 mmol/L (98-107); Sodium 138 mmol/L (136-145)
[2022-08-17 08:53] LABS: Basophils % 0.4 % (0.1-2.0); Eosinophils # 0.3 K/mm3 (0.0-0.4); Hematocrit 42.9 % (37.0-47.0); Lymphocytes # 1.8 K/mm3 (0.7-4.5); Lymphocytes % 20.5 % (10-50); Mean Corpuscular HGB Conc 32.8 g/dL (31.8-35.4); Mean Corpuscular Hemoglobin 31.6 pg (27.0-31.2); Mean Corpuscular Volume 96.5 fl (81-99); Mean Platelet Volume 8.8 fl (7.4-10.4); Monocytes # 0.4 K/mm3 (0.1-1.0); Monocytes % 4.2 % (1.7-9.3); Neutrophils # 6.4 K/mm3 (1.8-7.8); Neutrophils % 71.9 % (37.0-80.0); Platelet Count 160 K/mm3 (142-424); Red Blood Count 4.44 M/mm3 (4.20-5.40); Red Cell Distribution Width 12.6 % (11.5-17.5); White Blood Count 8.9 K/mm3 (4.8-10.8)
[2022-08-17 08:53] LABS: Potassium 3.6 mmoL/L (3.5-5.1)
--- NOTE | 2022-08-17 08:53 | P.PN_ITS ---
[facility] Disclaimer: The information contained in this section may have been updated after the patient was seen, as this information can be updated by other users. Medical History (Updated 08/17/22 @ 08:36 by Patience Kc RN) Bone spur Enlarged thyroid Gallstones History of gastroesophageal reflux (GERD) HTN (hypertension) Migraine Palpitations Pre-op evaluation Rash Sinus headache Tobacco abuse Surgical History (Updated 08/17/22 @ 08:36 by Patience Kc RN) History of surgery History of surgery Hx of tubal ligation Family History (Updated 08/17/22 @ 08:36 by Patience Kc RN) Other Cancer Social History Smoking Status: Current every day smoker tobacco type: cigarettes packs per day: 1 years smoked: 20 second hand exposure: Yes alcohol intake: never substance use type: denies use current occupational status: employed Travel in the last 8 weeks: [place] the [place] household members: children housing: house current occupational exposures/hazards: No caffeine: Yes [facility] Anesthesia Checklist Patient Identification Patient Identification: Arm Band Structural Data Admitted From: Home Planned Operative Procedure/s: Excision of Scalp Lesion x3 Consent for Planned Operative Procedure(s) Verified: Yes Verified Documents: Surgical Consent and History and Physical NPO Status Verified Time NPO: 00:00 Additional verifications Anesthesia Reactions: No Hx Blood Transfusions: No Blood Transfusion Reaction: No Airway Assessment C-Spine Mobility Assessed: Yes TMJ Mobility Assessed: Yes Dentition: Good Dentition (upper dentures) Neurological Assessment Level of Consciousness: Awake and Alert Anesthesia Plan Anesthesia Risk discussed: Yes Anesthesia Plan: Verified ASA Class: II Anesthesia Type: General
[2022-08-17 08:55] LABS: Blood Urea Nitrogen 10 mg/dl (7-17); Creatinine Clearance Estimated 95 mL/min (50-200); Estimated Glomerular Filt Rate 68 ml/min (>60); GFR (African American) 82 ML/MIN (>60)
[2022-08-17 08:56] LABS: Anion Gap 11.6 mEq/L (5-15); Calcium 8.6 mg/dl (8.4-10.2); Carbon Dioxide 31 mmol/L (22.0-30.0); Glucose 83 mg/dl (74-100)
--- NOTE | 2022-08-17 09:55 | EXP.OP.NOTE ---
Date of procedure: 08/17/22 Pre-op Diagnosis:: Scalp cysts Post-op Diagnosis:: Same Procedure performed:: Excision of scalp cyst x3 with simple closure (excisional length approximately 1 cm) Surgeon:: Brian Hernandez MD Anesthesia: local and LMA Estimated blood loss (mL): 5 Operative findings:: Consistent with noninfected pilar cysts Operative note:: Patient was taken to the operating room. She was given preoperative intravenous antibiotics. In the operating room she was placed in a supine position. General anesthesia was induced via LMA. The 3 areas were prepped and draped in the standard surgical fashion. Skin was marked with skin marker for planned incision. Local anesthetic was infiltrated superficially and then deeply. Ultimately elliptical incision was made for each lesion. Dissection was carried down. There were findings consistent with epidermal inclusion pilar cysts. Due to the very small size of these there was some minimal unavoidable disruption of the capsule for each. These were each excised and sent off as anterior, mid, and posterior right scalp cyst. There was good hemostasis. Incisions were closed with skin nona. Dressing was applied. Condition: stable Disposition: PACU Complications:: None immediately apparent
--- NOTE | 2022-08-17 10:02 | EXP.ANES.I ---
[facility] Anesthesia Record Part I Anesthesia Record I Intake, IV Amount: 500 Estimated blood loss (mL): 0 Urine output (mL): 0 Blood Products used (#): none Blood Pressure: 134/76 SaO2: 98 Pulse Rate: 86 Respiratory Rate: 18 Temperature: 97.6 F Patient is:: Drowsy and Stable Stable to PACU at:: 10:00
--- NOTE | 2022-08-19 08:36 | P.PNANES_ITS ---
[facility] Anesthesia Record Part II Anesthesia Record Part II Discharge Time: 10:30 Destination: Surgical Day Care (OP Surgery) PACU nurse assessment reviewed?: Yes Patient Condition:: Good Anesthesia Complications:: None Swallowing reflex intact?: Yes Cyanosis?: No Blood Pressure: 126/71 Pulse Rate: 60 Temperature: 97.4 F Mental Status: Alert & Oriented Pain level:: 4 Nausea and/or vomitting:: None Intake, IV Amount: 0
[2022-08-19 08:37] VITALS: BP 126/71; PULSE 60; TEMP 36.3
== END 2022-08-17 11:08 | disposition home or self-care (01) ==
PROVIDERS: PCP Emergency Medicine; Visit Provider Surgery
PROC: (CPT 11422; principal; 2022-08-17 09:45)
DX: L72.11 Pilar cyst (principal); F17.210 Nicotine dependence, cigarettes, uncomplicated; Z79.899 Other long term (current) drug therapy
CPT/HCPCS: 11422 ×2; 11421; 80048; 81025; 85025; 96374; J2405

== ENCOUNTER 2023-07-05 19:14 | Outpatient (CLI) | payer BC, OTHER, SELFPAY ==
[2023-07-05 18:28] LABS: Basophils # 0.1 K/mm3 (0-0.2); Basophils % 0.9 % (0.1-2.0); Eosinophils # 0.3 K/mm3 (0.0-0.4); Eosinophils % 3.8 % (0.1-12.0); Hematocrit 48.8 % (37.0-47.0); Lymphocytes # 1.7 K/mm3 (0.7-4.5); Lymphocytes % 24.8 % (10-50); Mean Corpuscular HGB Conc 32.9 g/dL (31.8-35.4); Mean Corpuscular Hemoglobin 33.2 pg (27.0-31.2); Mean Corpuscular Volume 101.1 fl (81-99); Mean Platelet Volume 10.2 fl (7.4-10.4); Monocytes # 0.3 K/mm3 (0.1-1.0); Monocytes % 4.9 % (1.7-9.3); Neutrophils # 4.6 K/mm3 (1.8-7.8); Neutrophils % 65.5 % (37.0-80.0); Platelet Count 181 K/mm3 (142-424); Red Blood Count 4.83 M/mm3 (4.20-5.40); Red Cell Distribution Width 12.7 % (11.5-17.5)
[2023-07-05 18:41] LABS: Alanine Aminotransferase 20 U/L (12-78); Albumin Level 4.4 g/dl (3.5-5.0); Albumin/Globulin Ratio 1.5 (1.1-1.8); Alkaline Phosphatase 74 U/L (38-126); Anion Gap 8.7 mEq/L (5-15); Aspartate Amino Transferase 26 U/L (14-36); Bilirubin,Total 0.5 mg/dl (0.2-1.3); Blood Urea Nitrogen 10 mg/dl (7-17); Calcium 9.7 mg/dl (8.4-10.2); Carbon Dioxide 29 mmol/L (22.0-30.0); Chloride 105 mmol/L (98-107); Estimated Glomerular Filt Rate 78 ml/min (>60); GFR (African American) 94 ML/MIN (>60); Globulin 2.9 g/dL (1.3-3.2); Glucose 101 mg/dl (74-100); HDL Cholesterol 38 mg/dl (40-60); Potassium 3.7 mmoL/L (3.5-5.1); Sodium 139 mmol/L (136-145); Total Protein,Serum 7.3 g/dl (6.3-8.2); Triglycerides 237 mg/dl (30-150); VLDL Cholesterol 47 mg/dL (0-40)
[2023-07-05 18:52] LABS: Direct LDL Cholesterol 197.01 mg/dL (100-129)
[2023-07-05 19:00] LABS: Chol/HDL Ratio 8.9 (1-3.5); Cholesterol 339 mg/dl (140-200)
[2023-07-05 19:04] LABS: 25-OH Vitamin D, Total 21.1 ng/mL (30-100)
[2023-07-05 19:16] LABS: Hemoglobin A1C 5.4 % (4.0-6.0)
[2023-07-05 19:19] LABS: Thyroid Stimulating Hormone 0.86 uIU/mL (0.465-4.68)
== END 2023-07-05 23:59 ==
LOC: LAB.DROPOF 19:16
PROVIDERS: PCP Student in an Organized Health Care Education/Training Program; Visit Provider Student in an Organized Health Care Education/Training Program
DX: R53.83 Other fatigue (principal); H02.63 Xanthelasma of right eye, unspecified eyelid; H02.66 Xanthelasma of left eye, unspecified eyelid; R11.2 Nausea with vomiting, unspecified; R10.9 Unspecified abdominal pain; R51.9 Headache, unspecified; E55.9 Vitamin D deficiency, unspecified; F17.210 Nicotine dependence, cigarettes, uncomplicated
CPT/HCPCS: 80053; 80061; 82306; 83036; 84443; 85025

== ENCOUNTER 2023-07-06 13:45 | Outpatient (CLI) | payer BC, OTHER, SELFPAY ==
[2023-07-06 11:11] LABS: Coronavirus 19, PCR Not Detected (NotDetected); Influenza A, PCR Not Detected (NotDetected); Influenza B, PCR Not Detected (NotDetected)
== END 2023-07-06 23:59 ==
LOC: LAB.DROPOF 13:46
PROVIDERS: PCP Student in an Organized Health Care Education/Training Program; Visit Provider Student in an Organized Health Care Education/Training Program
DX: R51.9 Headache, unspecified (principal); R53.83 Other fatigue; R10.9 Unspecified abdominal pain; R11.2 Nausea with vomiting, unspecified
CPT/HCPCS: 87636

== ENCOUNTER 2023-12-09 14:00 | Outpatient (RCR) | payer BC, SELFPAY | END 2023-12-09 14:05 | disposition home or self-care (01) | LOC: PT 14:00 | PROVIDERS: Visit Provider Physical Medicine & Rehabilitation | DX: M25.551 Pain in right hip (principal); M54.2 Cervicalgia | CPT/HCPCS: 97014; 97035; 97110; 97163; G0283 ==

== ENCOUNTER 2024-01-03 06:52 | Outpatient (CLI) | payer BC, SELFPAY ==
[2024-01-03 07:51] LABS: Albumin Level 4.1 g/dl (3.5-5.0); Chloride 104 mmol/L (98-107); Sodium 140 mmol/L (136-145)
[2024-01-03 07:52] LABS: Potassium 3.9 mmoL/L (3.5-5.1)
[2024-01-03 07:54] LABS: Alanine Aminotransferase 12 U/L (12-78); Albumin/Globulin Ratio 1.5 (1.1-1.8); Alkaline Phosphatase 48 U/L (38-126); Anion Gap 8.9 mEq/L (5-15); Aspartate Amino Transferase 23 U/L (14-36); Bilirubin,Total 0.5 mg/dl (0.2-1.3); Blood Urea Nitrogen 13 mg/dl (7-17); Carbon Dioxide 31 mmol/L (22.0-30.0); Cholesterol 146 mg/dl (140-200); Estimated Glomerular Filt Rate 78 ml/min (>60); GFR (African American) 94 ML/MIN (>60); Globulin 2.7 g/dL (1.3-3.2); Total Protein,Serum 6.8 g/dl (6.3-8.2); Triglycerides 102 mg/dl (30-150); VLDL Cholesterol 20 mg/dL (0-40)
[2024-01-03 07:55] LABS: Calcium 9.4 mg/dl (8.4-10.2); Chol/HDL Ratio 4.3 (1-3.5); Glucose 89 mg/dl (74-100); HDL Cholesterol 34 mg/dl (40-60)
[2024-01-03 07:58] LABS: Hemoglobin A1C 5.4 % (4.0-6.0)
[2024-01-03 08:06] LABS: Direct LDL Cholesterol 77.43 mg/dL (100-129)
[2024-01-03 08:17] LABS: Basophils % 0.6 % (0.1-2.0); Eosinophils # 0.3 K/mm3 (0.0-0.4); Eosinophils % 4.6 % (0.1-12.0); Hematocrit 45.2 % (37.0-47.0); Hemoglobin 14.8 g/dL (12.2-16.2); Lymphocytes # 2.2 K/mm3 (0.7-4.5); Lymphocytes % 34.8 % (10-50); Mean Corpuscular HGB Conc 32.8 g/dL (31.8-35.4); Mean Corpuscular Hemoglobin 32.7 pg (27.0-31.2); Mean Corpuscular Volume 99.7 fl (81-99); Mean Platelet Volume 8.7 fl (7.4-10.4); Monocytes # 0.3 K/mm3 (0.1-1.0); Monocytes % 4.6 % (1.7-9.3); Neutrophils # 3.5 K/mm3 (1.8-7.8); Neutrophils % 55.3 % (37.0-80.0); Platelet Count 163 K/mm3 (142-424); Red Blood Count 4.53 M/mm3 (4.20-5.40); Red Cell Distribution Width 12.9 % (11.5-17.5); White Blood Count 6.3 K/mm3 (4.8-10.8)
== END 2024-01-03 23:59 | disposition home or self-care (01) ==
LOC: LAB 06:53
PROVIDERS: PCP Nurse Practitioner Family; Visit Provider Nurse Practitioner Family
DX: Z00.00 Encounter for general adult medical examination without abnormal findings (principal); E78.2 Mixed hyperlipidemia
CPT/HCPCS: 36415; 80053; 80061; 83036; 85025

== ENCOUNTER 2024-01-20 14:45 | Outpatient (CLI) | payer BC, SELFPAY ==
--- NOTE | 2024-01-20 14:49 | MM_ITS ---
PROCEDURE INFORMATION: Exam: MG Bilateral Screening 3D Mammography Exam date and time: 01/20/2024 2:37 PM Age: 44 years old Clinical indication: Screening examination TECHNIQUE: Imaging protocol: Bilateral Screening tomosynthesis and 2D mammography including computer-aided detection (CAD) when performed. COMPARISON: 1. MG MM DIG SCREENING MAMM BI W/CAD 09/19/2021 3:54 PM 2. MG MM DIG SCREENING MAMM BI W/CAD 09/03/2020 8:52 AM FINDINGS: MAMMOGRAPHY: Breast composition: There are scattered areas of fibroglandular density. Mass: None. Architectural distortion: None. Calcifications: No suspicious calcifications. Asymmetric density: None. Skin thickening: None. Axillary adenopathy: None. IMPRESSION: No mammographic evidence of malignancy. Annual screening is recommended unless otherwise clinically indicated. ASSESSMENT: BI-RADS Category 1: Negative.
== END 2024-01-20 23:59 | disposition home or self-care (01) ==
LOC: RAD 14:46
PROVIDERS: PCP Nurse Practitioner Family; Visit Provider Nurse Practitioner Family
DX: Z12.31 Encounter for screening mammogram for malignant neoplasm of breast (principal)
CPT/HCPCS: 77063; 77067